=== PATIENT | female | born 1975 | race Caucasian/White ===

== ENCOUNTER 2020-06-06 16:27 | Emergency (ER) | payer MEDICAID, SELFPAY ==
[2020-06-06 16:39] VITALS: BP 172/100; PULSE 91; RESP 17; TEMP 37.7; O2SAT 99; BMI 29.5
[2020-06-06 17:13] VITALS: BP 117/76; PULSE 82; RESP 16; TEMP 37.2; O2SAT 98
--- NOTE | 2020-06-06 17:16 | ED.SKABFB ---
HPI - Skin/Abscess/Foreign Bdy General Chief complaint: Skin/Abscess/Foreign Body Stated complaint: rash Time Seen by Provider: 06/06/20 16:58 Source: patient Mode of arrival: ambulatory Limitations: no limitations History of Present Illness HPI narrative: 44-year-old female who is HIV positive who presents emergency department for evaluation of headache x1 week and left-sided facial/head/neck rash that started yesterday. The patient was seen at the [facility] and referred to emergency department for evaluation for possible shingles. The patient states that she has had a left-sided occipital headache for 1 week. She describes the pain as a constant, sharp, burning, throbbing pain which is greater than 10/10. She states that yesterday she noticed a rash on the left side of her face and neck. The rash does involve her nose. She denies any change in her vision or eye pain. She states that the rash is a burning sensation which is severe and is 10/10. She had associated nausea but no vomiting. She states that she did have a fever at home over the past 2 days as well. The patient does use injection heroin and cocaine and uses daily. She states that she injected heroin into her right biceps area and now has a rash in this area which she knows is an early abscess. She states that she gets these frequently and she treats them with warm compresses and does not want antibiotics for her abscess. She denied numbness, weakness, chest pain, shortness of breath, cough, loss of taste signs or smell. MD complaint: rash Onset (ago): day(s) (2) Location: head (Left side), face (Left side) and neck (Left side) Severity: severe Severity scale (1-10): 10 Quality: burning, sharp and constant Pain Consistency: constant Relieving factors: none Exacerbating factors: none Context: none Associated symptoms: fever, nausea and other (Headache) Treatments prior to arrival: none Related Data Previous Rx's Medication Instructions Recorded acetaminophen [Tylenol Extra 1,000 mg PO Q4-6H PRN #60 tab 06/06/20 Strength] prednisone 60 mg PO DAILY #21 tab 06/06/20 valacyclovir [Valtrex] 1,000 mg PO TID 10 Days #30 tab 06/06/20 Allergies Allergy/AdvReac Type Severity Reaction Status Date / Time No Known Allergies Allergy Verified 06/06/20 17:10 Review of Systems Review of Systems: Yes all other systems are reviewed and are negative Constitutional: Constitutional: Reports as per HPI Eyes: Eyes: Reports as per HPI ENT: Reports as per HPI Cardiovascular: Cardiovascular: Reports as per HPI Respiratory: Respiratory: Reports as per HPI Gastrointestinal: Gastrointestinal: Reports as per HPI Genitourinary: Genitourinary: Reports as per HPI Musculoskeletal: Musculoskeletal: Reports as per HPI Integumentary/Breasts: Skin/Breast: Reports as per HPI Neurologic: Reports as per HPI and Reports Abnormal speech present Psychiatric: Psychiatric: Reports as per HPI Allergic/Immunologic: Allergic/Immunologic: Reports as per HPI [facility] Past Medical History [facility] Narrative: The patient does smoke cigarettes. She denies alcohol use. She does inject heroin with cocaine daily. Medical History Hep C w/o coma, chronic HIV (human immunodeficiency virus infection) Social History Social History Advance Directives: No Advance Directives Information Provided: No Physical Exam Vital Signs: Vital Signs: Last Vital Signs Temp 99.0 F 06/06/20 17:13 Pulse 82 06/06/20 17:13 Resp 16 06/06/20 17:13 BP 117/76 06/06/20 17:13 Pulse Ox 98 06/06/20 17:13 Body Mass Index 29.5 Const: General: cooperative, alert, awake and acute distress (Patient is crying, she appears to be in distress secondary to pain) moderate Orientation/consciousness: oriented to person and oriented to place Limitations: no limitations HENMT: Head: Yes normocephalic, Yes atraumatic and Yes other (Fascicular rash on a red base, left side only face, occiput, neck) Ears: external ears normal General nose exam: Normal external nose present Face and sinus: Yes sinuses nontender Mouth: Normal oral and palatal mucosa present Teeth and gingiva: edentulous Eyes: General: appearance normal, both eyes and all related structures Periorbital: periorbital findings normal Eyelids: Yes eyelids normal Conjunctivae: conjunctivae normal Sclerae: sclerae normal Corneas: corneas normal Pupils: Equal, round and reactive pupils present Direct Ophthalmoscopy: normal light reflex Neck: Neck: Yes normal visual inspection and Yes supple Lymphatic: no lymphadenopathy noted Chest: Chest palpation & inspection: normal inspection of the chest and normal palpation of entire chest wall Resp: Effort & Inspection: normal respiratory effort, abnormal respiratory pattern, no audible wheezes and no respiratory distress Auscultation: clear to auscultation bilaterally, no crackles, no rales, no rhonchi and no wheezes Cardio: Rate: regular rate Rhythm: regular rhythm Heart sounds: S1 normal heart sound present, S2 normal heart sound present and no murmurs GI: Inspection: No distended Palpation (GI): Soft to palpation, nontender, no guarding and No hepatosplenomegaly present Auscultation: normal bowel sounds : General: Yes no CVA tenderness Back/Spine/Pelvis: Back: no CVA tenderness Skin: General skin exam: other (Fascicular rash to left face, occipital area, and neck) Neuro: General: oriented to person and oriented to place Cranial nerves: Yes CN's II-XII intact bilaterally and Yes Equal, round and reactive pupils present Cognition (Neuro): normal cognition Speech: Abnormal speech present Motor exam (neuro): 5/5 motor strength present throughout Extrem: General: Yes full ROM, Yes no pedal edema, Yes no calf tenderness and Yes other (2 x 2 circular, indurated, erythematous area to the right biceps, slightly ) Psych: Appearance: grossly normal Mental Status: mental status grossly normal Speech and movement: Clear speech present Affect: normal affect Thought process: Normal thought process present Course Course Course Narrative: 44-year-old female, HIV positive who presents to emergency department for evaluation of a headache x1 week, the rash on the left side of her face, head and neck x2 days and an early abscess to her right biceps area who was referred to the emergency department for evaluation of possible shingles. The patient has no high findings at this time. She does not appear to be septic or toxic. Vital signs revealed an elevated blood pressure of 172/100 but I suspect that this is secondary to her pain, the she had a temperature of 99.9?. The patient will be treated with valacyclovir 1000 mg that started 3 times a day for 10 days and prednisone 60 mg once a day for 7 days. She was advised to take Tylenol extra-strength 500 mg every 4-6 hours as needed for pain. She was given printed instructions on shingles in these reviewed with her prior to her discharge. She was advised to follow up with doctor in 2-3 days for re-evaluation and return to the emergency department if symptoms get worse. She does have an early abscess to her right biceps area which I advised her to treat with warm compresses and return to the emergency department if her symptoms get worse. She does not want antibiotic treatment at this time she states that she gets these frequently and she can treat them with warm compresses only. She was given her 1st dose of prednisone and Tylenol here in the emergency department. Discharge Plan Discharge Clinical Impression: Herpes zoster dermatitis, Abscess Patient Disposition: Home, Self-Care Instructions: Shingles (ED), Abscess (ED) Additional Instructions: The rash and pain on the left side of your face is consistent with herpes zoster/shingles which is reactivation of chickenpox. Take valacyclovir 1000 mg 3 times a day for 10 days. This is an antiviral medication specifically against the herpes zoster virus and should help the shingles go away. Shingles can cause severe pain and inflammation, prednisone as an anti-inflammatory medication. Take prednisone 60 mg once a day for 7 days. Take your next dose tomorrow morning. While your taking prednisone do not take any nonsteroidal anti-inflammatory medications such as ibuprofen, Motrin, Advil, naproxen or Aleve. You can take extra-strength Tylenol 500 mg pills, 2 pills every 4-6 hours as needed for pain. Apply warm compresses to the early abscess on your right arm. If this is getting worse that may need to be drained in you need to return to the emergency department to get the abscess drained. If you developed any change in your vision or pain in your eye it is important that you return to the emergency department for re-evaluation for possible shingles of the eye. Follow-up with your doctor in 2-3 days. Please return to the emergency department if your symptoms get worse or if you develop any new symptoms that are concerning to you. Prescriptions: New valacyclovir [Valtrex] 1 gram tablet 1,000 mg PO TID 10 Days Qty: 30 RF: 0 prednisone 20 mg tablet 60 mg PO DAILY Qty: 21 RF: 0 acetaminophen [Tylenol Extra Strength] 500 mg tablet 1,000 mg PO Q4-6H PRN (Reason: fever or pain) Qty: 60 RF: 0
[2020-06-06] MEDS: Acetaminophen 325 MG TABLET 975 MG PO (17:22)
[2020-06-06] MEDS: predniSONE 20 MG TABLET 60 MG PO (17:23)
--- NOTE | 2020-06-06 17:49 | PC.NURSE ---
PT COMES TO DESK ASKING FOR DISCHARGE PAPERS. D/C PAPERS NOT READY YET. PA STATES I DON'T WANT TO SIT HERE AND WAIT FOR DISCHARGE PAPERS. PT INSTRUCTED SHE WILL NEED HER PRESCRIPTIONS. PT AMB BACK TO ROOM.
== END 2020-06-06 17:57 | disposition home or self-care (01) ==
PROVIDERS: Emergency Provider Emergency Medicine Emergency Medical Services; PCP Internal Medicine
DX: B02.9 Zoster without complications (principal); L02.413 Cutaneous abscess of right upper limb; B20 Human immunodeficiency virus [HIV] disease
CPT/HCPCS: 99283; 99284

== ENCOUNTER 2021-04-18 22:25 | Emergency (ER) | payer MEDICAID, SELFPAY ==
--- NOTE | ~2021-04-18 | US_ITS ---
EXAMINATION: US VENOUS ULTRASOUND WITH DOPPLER LOWER EXTREMITY, RIGHT CLINICAL INFORMATION: Right lower extremity swelling and pain, rule out DVT COMPARISON: None TECHNIQUE: Ultrasound of the deep veins is performed from the hip to the calf with compression sonography and color and pulse Doppler assessment. Spectral analysis with color-flow imaging is performed. FINDINGS: There is normal venous compression and respiratory variation and augmented flow. The visualized common femoral vein, superficial femoral vein, profunda femoral vein, popliteal vein, and the trifurcation region shows no evidence of deep venous thrombosis. There is no significant popliteal fossa cyst. If the patient's symptoms persist, followup ultrasound in 5 days 7 days might be of value to exclude proximal propagation from a non-visualized calf vein. US/US venous duplex LE RT IMPRESSION: No DVT demonstrated in the right lower extremity.
[2021-04-18 22:58] VITALS: BP 154/82; PULSE 90; RESP 18; TEMP 36.1; O2SAT 94; BMI 43.1
--- NOTE | 2021-04-19 00:47 | ED.SKABFB ---
HPI - Skin/Abscess/Foreign Bdy General Chief complaint: Skin/Abscess/Foreign Body Stated complaint: Right foot swelling Time Seen by Provider: 04/19/21 00:35 Source: patient Mode of arrival: ambulatory History of Present Illness HPI narrative: 45-year-old female with a past medical history of asthma, hepatitis-C, HIV, IVDA presenting to the ED complaining of right foot erythema, swelling, pain x2 days. Reports swelling radiating up RLE. Reports chronic SOB x4 months secondary to weight gain from depression, unchanged since new symptoms. Denies history of blood clots, CP, numbness, tingling, fever, chills. Patient admits to injecting heroin and cocaine however denies injecting into right foot Related Data Previous Rx's Medication Instructions Recorded acetaminophen 500 mg tablet 1,000 mg PO Q4-6H PRN #60 tab 06/06/20 (Tylenol Extra Strength) prednisone 20 mg tablet 60 mg PO DAILY #21 tab 06/06/20 valacyclovir 1 gram tablet 1,000 mg PO TID 10 Days #30 tab 06/06/20 (Valtrex) cephalexin 500 mg capsule 500 mg PO QID 7 Days #28 cap 04/19/21 doxycycline hyclate 100 mg tablet 100 mg PO BID 7 Days #14 tab 04/19/21 Allergies Allergy/AdvReac Type Severity Reaction Status Date / Time No Known Allergies Allergy Verified 04/19/21 00:12 Review of Systems Review of Systems: Constitutional: No Fever, No Chills, No Fatigue, No Malaise ENT/Mouth:No Ear Pain, No Nasal Congestion, No Sinus Pain, No sore throat, No Rhinorrhea Eyes: No Eye Pain, No Discharge, No Vision Changes Cardiovascular: No Chest Pain, +chronic SOB, No Dyspnea on Exertion, No Orthopnea, + Edema, No Palpitations Respiratory: No Cough, No Dyspnea Gastrointestinal: No Nausea, No Vomiting, No Diarrhea, No Constipation, No Abdominal pain Genitourinary: No Dysuria, No Urinary Frequency, No Hematuria, No Urgency, No Flank Pain Musculoskeletal: No joint pain, No Myalgias, + Joint Swelling Skin: + Skin Lesions, No rash Neuro: No Weakness, No Numbness, No Paresthesias, No Headache Yes all other systems are reviewed and are negative PMFSH Past Medical History Attestation statement: The following information was validated with the patient. Medical History (Updated 04/19/21 @ 02:02 by CHANTALE Lemus) Asthma Genital herpes Hep C w/o coma, chronic HIV (human immunodeficiency virus infection) Substance abuse Social History Social History Alcohol intake: never Patient Tobacco Use Status: Current everyday Tobacco user Use of substances other than those prescribed or required for medical reasons: Yes Substance Use Type: Crack/Cocaine and Heroin Substance Use Frequency: Chronic Longstanding Last Used Substance: Hours (ago) Advance Directives: No Advance Directives Information Provided: No Patient : No Physical Exam Vital Signs: Vital Signs: Last Vital Signs Temp 97.0 F 04/18/21 22:58 Pulse 90 04/18/21 22:58 Resp 18 04/18/21 22:58 BP 154/82 H 04/18/21 22:58 Pulse Ox 94 04/18/21 22:58 Body Mass Index 43.1 Const: General: cooperative, healthy appearing and no acute distress Orientation/consciousness: patient oriented x3 Limitations: no limitations HENMT: Head: Yes normal to inspection and Yes atraumatic Ears: hearing grossly normal bilaterally General nose exam: Normal external nose present Face and sinus: Yes normal facial exam Eyes: General: appearance normal, both eyes and all related structures EOM: EOMs intact bilaterally Neck: Neck: Yes normal visual inspection and Yes no meningeal signs Resp: Effort & Inspection: normal respiratory effort and no respiratory distress Cardio: Rate: regular rate Peripheral pulses: dorsalis pedis present Skin: Wounds: no wounds Neuro: General: patient oriented x3 and no meningeal signs Gait exam (Neuro): Normal gait present Extrem: Other: 2+ RLE pitting edema. + right foot erythema and noted swelling. Peripheral pulses intact. No warmth. No streaking. No abscess. No fluctuance/induration Course Course Course Narrative: -0200--ED care transferred to Dr. Lazo pending labs, ultrasound and anticipated DC home MDM - Skin/Abscess/Foreign Bdy MDM Narrative Medical decision making narrative: 45-year-old female with a past medical history of asthma, hepatitis-C, HIV, IVDA presenting to the ED complaining of right foot erythema, swelling, pain x2 days. On exam vital signs stable, NAD/nontoxic-appearing, physical exam as above consistent with right foot cellulitis. Rule out DVT. No evidence of abscess. Low concern for septic joint/arthritis Plan: Labs, lactate, blood cultures, venous duplex ultrasound Medical Records Attestation: I reviewed the patient's medical records. Lab Data Attestation: I reviewed the patient's lab results. Discharge Plan Discharge Clinical Impression: Cellulitis Qualifiers: Site of cellulitis: extremity Site of cellulitis of extremity: lower extremity Laterality: right Qualified Code(s): L03.115 - Cellulitis of right lower limb Instructions: Cellulitis (ED) Additional Instructions: You have an infection in her foot. Keflex and doxycycline are antibiotics, take as prescribed If infection is spreading, he developed fever, chills, drainage from area, shortness of breath please return to the ED Please be re-evaluated in 2-3 days Do not inject in this area Prescriptions: New cephalexin 500 mg capsule 500 mg PO QID 7 Days Qty: 28 RF: 0 doxycycline hyclate 100 mg tablet 100 mg PO BID 7 Days Qty: 14 RF: 0 No Action valacyclovir [Valtrex] 1 gram tablet 1,000 mg PO TID 10 Days Qty: 30 RF: 0 prednisone 20 mg tablet 60 mg PO DAILY Qty: 21 RF: 0 acetaminophen [Tylenol Extra Strength] 500 mg tablet 1,000 mg PO Q4-6H PRN (Reason: fever or pain) Qty: 60 RF: 0 Referrals: Alexandrea Sweet MD [Primary Care Provider] - 2 days
[2021-04-19 02:08] LABS: Basophils Percent Auto 0.6 % (0-2); Eosinophils Absolute Auto 0.2 X10*3/uL (0.0-0.4); Eosinophils Percent Auto 2.8 % (0-4); Hemoglobin 15.4 g/dl (12.0-16.0); Imm Gran Abs Auto 0.04 X10*3/uL (0.00-0.03); Imm Gran Pct Auto 0.6 % (0.0-0.4); Lymphocytes Absolute Auto 1.5 X10*3/uL (1.2-4.9); Lymphocytes Percent Auto 21.1 % (20-40); MANUAL DIFF FLAG NO; Mean Corpuscular HGB Conc 34.2 g/dl (31.0-35.0); Mean Corpuscular Hemoglobin 30.9 pg (27.0-33.0); Mean Corpuscular Volume 90.2 fL (80-98); Mean Platelet Volume 10.1 fL (9.4-12.3); Monocytes Absolute Auto 0.5 X10*3/uL (0.1-1.2); Monocytes Percent Auto 6.5 % (2-11); Neutrophils Absolute Auto 4.8 X10*3/uL (2.0-8.3); Neutrophils Percent Auto 68.4 % (45-73); Platelet Count 194 X10*3/uL (160-400); Red Blood Count 4.99 X10*6/uL (4.20-5.50); Red Cell Distribution Width 13.2 % (11.0-16.0); White Blood Count 7.1 X10*3/uL (4.8-10.8)
[2021-04-19 02:19] LABS: Lactic Acid 1.2 mmol/L (0.5-2.0)
[2021-04-19 02:28] LABS: Alanine Aminotransferase 46 U/L (0-31); Albumin Level 3.9 g/dL (3.5-5.0); Alkaline Phosphatase 58 U/L (39-117); Anion Gap 11 (12-20); Aspartate Amino Transferase 40 U/L (5-31); Bilirubin Direct 0.2 mg/dL (0.0-0.5); Bilirubin Total 0.2 mg/dL (0.0-1.0); Blood Urea Nitrogen 8 mg/dL (9-16); Calcium 9.2 mg/dL (8.4-10.2); Carbon Dioxide 28 mmol/L (22-29); Chloride 102 mmol/L (96-108); Creatinine Clr Calc Pharmacy 123.8; Estimated Glomerular Filt Rate > 60; Glucose Random 108 mg/dL (60-115); Potassium 4.3 mmol/L (3.3-5.1); Sodium 137 mmol/L (135-145)
[2021-04-19] MEDS: cephALEXin 500 MG CAPSULE PO (02:45)
[2021-04-19 03:02] VITALS: BP 142/64; PULSE 74; RESP 18; TEMP 37; O2SAT 97
== END 2021-04-19 03:03 | disposition home or self-care (01) ==
PROVIDERS: Physician Assistant; Emergency Provider Internal Medicine; PCP Internal Medicine
DX: L03.115 Cellulitis of right lower limb (principal); R60.0 Localized edema; F11.10 Opioid abuse, uncomplicated; F14.10 Cocaine abuse, uncomplicated; F17.200 Nicotine dependence, unspecified, uncomplicated; Z71.6 Tobacco abuse counseling; Z79.899 Other long term (current) drug therapy
CPT/HCPCS: 36415; 80048; 80076; 83605; 85025; 87040; 93971; 99284

== ENCOUNTER 2021-10-30 01:13 | Observation (INO) | payer MEDICAID, SELFPAY ==
[2021-10-30] VITALS (9 sets, daily range): BP systolic 112–143; BP diastolic 47–97; PULSE 71–92; RESP 13–24; TEMP 36.7–37.2; O2SAT 90–97; BMI 32.5
--- NOTE | ~2021-10-30 | XR_ITS ---
EXAMINATION: XR CHEST CLINICAL INFORMATION: Shortness of breath COMPARISON: 12/20/2018 TECHNIQUE: Frontal view of the chest was obtained. FINDINGS: Lung volumes are symmetric. No acute consolidation is seen. Mild focal left basilar opacity appears similar to 12/20/2018, suggesting scarring. No evidence of pneumothorax, pleural effusion, or pulmonary edema. The cardiomediastinal contour is unremarkable. No acute osseous findings are seen. XR/XR chest 1V IMPRESSION: No acute cardiopulmonary findings.
--- NOTE | 2021-10-30 01:36 | ED_ITS ---
HPI - Asthma General Chief Complaint: Asthma Stated Complaint: sob Time Seen by Provider: 10/30/21 01:28 Source: patient Mode of arrival: EMS History of Present Illness HPI Narrative: 46-year-old female with history of HIV, hep C, asthma, IVDA who presents with 1 week of worsening shortness of breath without associated fever, chills, GI or symptoms. Patient last used approximately 4 days ago. Patient states that she is currently undetectable, taking her medications as prescribed. She reports that she ran out of her inhalers. Related Data Previous Rx's Medication Instructions Recorded acetaminophen 500 mg tablet 1,000 mg PO Q4-6H PRN #60 tab 06/06/20 (Tylenol Extra Strength) prednisone 20 mg tablet 60 mg PO DAILY #21 tab 06/06/20 valacyclovir 1 gram tablet 1,000 mg PO TID 10 Days #30 tab 06/06/20 (Valtrex) cephalexin 500 mg capsule 500 mg PO QID 7 Days #28 cap 04/19/21 doxycycline hyclate 100 mg tablet 100 mg PO BID 7 Days #14 tab 04/19/21 prednisone 50 mg tablet 50 mg PO DAILY 4 Days #4 tab 10/30/21 Allergies Allergy/AdvReac Type Severity Reaction Status Date / Time No Known Allergies Allergy Verified 04/19/21 00:12 Review of Systems Review of Systems: Pertinent positives and negatives as stated in HPI 10 point review of systems otherwise negative. PMFSH Past Medical History Source: nursing notes reviewed Medical History Asthma Genital herpes Hep C w/o coma, chronic HIV (human immunodeficiency virus infection) Substance abuse Social History Social History Alcohol intake: never Patient Tobacco Use Status: Current everyday Tobacco user Use of substances other than those prescribed or required for medical reasons: Yes Substance Use Type: Crack/Cocaine and Heroin Advance Directives: No Physical Exam Vital Signs: Vital Signs: Last Vital Signs Temp 98.4 F 10/30/21 05:02 Pulse 74 10/30/21 05:02 Resp 13 10/30/21 05:02 BP 119/68 10/30/21 05:02 Pulse Ox 96 10/30/21 05:02 BMI result Body Mass Index 32.5 VITAL SIGNS: Reviewed. GENERAL: Well developed, well nourished, in no acute distress. HEAD: Normocephalic/atraumatic EYES: PERRLA, EOMI EARS: Ext canals without abnormality OROPHARYNX: no oral lesions noted, posterior pharynx clear LUNGS: Good inspiratory effort with combination of wheeze and crackles bilaterally. SpO2<91> room air CARDIOVASCULAR: Regular rate and rhythm without noted murmurs, no JVD or lower extremity edema. ABDOMEN: Soft, non-tender, non-distended with bowel sounds. MUSCULOSKELETAL: No tenderness, deformities, or effusions noted on gross inspection. EXTREMITIES: No cyanosis, clubbing or edema, but obvious evidence of needle tracking with dry scabbing over the left forearm without evidence of infection SKIN: Inspection of the skin reveals no rashes NEUROLOGIC: Alert and oriented x 4. Strength and sensation to light touch were grossly intact x 4. Course Course Course Narrative: 46-year-old female with history and clinical presentation consistent with acute asthma exacerbation. Patient received steroids, IVs M sulfate, 2 hour long albuterol treatment. Review of all investigations otherwise negative for acute findings other than acute asthma exacerbation and despite patient receiving extensive medication intervention she remains hypoxic on room air and ambulation with oxygenation testing demonstrates that patient is oxygenating 89-90%. This case was reviewed with the inpatient hospitalist who accepts admission. MDM - Asthma Lab Data Result diagrams: 10/30/21 01:59 10/30/21 02:01 Labs: Lab Results 10/30/21 10/30/21 10/30/21 Range/Units 01:56 01:56 01:58 WBC (4.8-10.8) X10*3/uL RBC (4.20-5.50) X10*6/uL Hgb (12.0-16.0) g/dl Hct (37.0-47.0) % MCV (80.0-98.0) fL MCH (27.0-33.0) pg MCHC (31.0-35.0) g/dl RDW (11.0-16.0) % Plt Count (160-400) X10*3/uL MPV (9.4-12.3) fL Immature Gran % (Auto) (0.0-0.4) % Neut % (Auto) (45-73) % Lymph % (Auto) (20-40) % [place] % (Auto) (2-11) % Eos % (Auto) (0-4) % Baso % (Auto) (0-2) % Lymph # (Auto) (1.2-4.9) X10*3/uL [place] # (Auto) (0.1-1.2) X10*3/uL Eos # (Auto) (0.0-0.4) X10*3/uL Baso # (Auto) (0.0-0.2) X10*3/uL Abs Immat Gran (auto) (0.00-0.03) X10*3/uL Absolute Neuts (auto) (2.0-8.3) x10*3/uL Absolute Nucleated RBC (0.0-0.012) X10*3/uL Nucleated RBC % (auto) (0.0-0.2) /100WBC VBG pH (7.32-7.43) VBG pCO2 mmHg VBG pO2 mmHg VBG HCO3 (22-26) mmol/L VBG O2 Saturation % VBG Base Excess mmol/L Sodium (135-145) mmol/L Potassium (3.3-5.1) mmol/L Chloride (96-108) mmol/L Carbon Dioxide (22-29) mmol/L Anion Gap (12-20) BUN (9-16) mg/dL Creatinine (0.5-1.4) mg/dL Estim Creat Clear Calc Estimated GFR Random Glucose (60-115) mg/dL Lactic Acid 1.4 (0.5-2.0) mmol/L Calcium (8.4-10.2) mg/dL Total Bilirubin (0.0-1.0) mg/dL AST (5-31) U/L ALT (0-31) U/L Alkaline Phosphatase (39-117) U/L Total Protein (6.5-8.0) g/dL Albumin (3.5-5.0) g/dL COVID-19 (GINO) Negative (Negative) COVID-19 Clin Com See Note Influenza Type A (BALDO) Negative (Negative) Influenza Type B (BALDO) Negative (Negative) Influenza A & B Note See Note 10/30/21 10/30/21 10/30/21 Range/Units 01:59 02:01 02:02 WBC 4.2 L (4.8-10.8) X10*3/uL RBC 5.10 (4.20-5.50) X10*6/uL Hgb 15.0 (12.0-16.0) g/dl Hct 45.2 (37.0-47.0) % MCV 88.6 (80.0-98.0) fL MCH 29.4 (27.0-33.0) pg MCHC 33.2 (31.0-35.0) g/dl RDW 13.5 (11.0-16.0) % Plt Count 158 L (160-400) X10*3/uL MPV 10.1 (9.4-12.3) fL Immature Gran % (Auto) 0.5 H (0.0-0.4) % Neut % (Auto) 62.4 (45-73) % Lymph % (Auto) 25.5 (20-40) % [place] % (Auto) 6.9 (2-11) % Eos % (Auto) 4.5 H (0-4) % Baso % (Auto) 0.2 (0-2) % Lymph # (Auto) 1.1 L (1.2-4.9) X10*3/uL [place] # (Auto) 0.3 (0.1-1.2) X10*3/uL Eos # (Auto) 0.2 (0.0-0.4) X10*3/uL Baso # (Auto) 0.0 (0.0-0.2) X10*3/uL Abs Immat Gran (auto) 0.02 (0.00-0.03) X10*3/uL Absolute Neuts (auto) 2.6 (2.0-8.3) x10*3/uL Absolute Nucleated RBC 0.000 (0.0-0.012) X10*3/uL Nucleated RBC % (auto) 0.0 (0.0-0.2) /100WBC VBG pH 7.38 (7.32-7.43) VBG pCO2 31 mmHg VBG pO2 52 mmHg VBG HCO3 19 L (22-26) mmol/L VBG O2 Saturation 81.0 % VBG Base Excess -4.6 mmol/L Sodium 136 (135-145) mmol/L Potassium 3.4 D (3.3-5.1) mmol/L Chloride 100 (96-108) mmol/L Carbon Dioxide 25 (22-29) mmol/L Anion Gap 14 (12-20) BUN 11 (9-16) mg/dL Creatinine 0.83 (0.5-1.4) mg/dL Estim Creat Clear Calc 105.3 Estimated GFR > 60 Random Glucose 127 H (60-115) mg/dL Lactic Acid (0.5-2.0) mmol/L Calcium 9.1 (8.4-10.2) mg/dL Total Bilirubin 0.5 (0.0-1.0) mg/dL AST 57 H (5-31) U/L ALT 54 H (0-31) U/L Alkaline Phosphatase 68 (39-117) U/L Total Protein 7.8 (6.5-8.0) g/dL Albumin 3.9 (3.5-5.0) g/dL COVID-19 (GINO) (Negative) COVID-19 Clin Com Influenza Type A (BALDO) (Negative) Influenza Type B (BALDO) (Negative) Influenza A & B Note Discharge Plan Discharge Clinical Impression: Asthma with acute exacerbation, Hepatitis C, HIV (human immunodeficiency virus infection), Substance use disorder Patient Disposition: Admitted As Inpatient Instructions: Asthma (ED) Prescriptions: New prednisone 50 mg tablet 50 mg PO DAILY 4 Days Qty: 4 0RF No Action valacyclovir [Valtrex] 1 gram tablet 1,000 mg PO TID 10 Days Qty: 30 0RF prednisone 20 mg tablet 60 mg PO DAILY Qty: 21 0RF acetaminophen [Tylenol Extra Strength] 500 mg tablet 1,000 mg PO Q4-6H PRN (Reason: fever or pain) Qty: 60 0RF cephalexin 500 mg capsule 500 mg PO QID 7 Days Qty: 28 0RF doxycycline hyclate 100 mg tablet 100 mg PO BID 7 Days Qty: 14 0RF Referrals: [facility] [Primary Care Provider] -
[2021-10-30] MEDS: Albuterol Sulfate (0.083%) 2.5 MG/3 ML VIAL.NEB 10 MG INHALE ×2 (01:37→03:37)
[2021-10-30] MEDS: methylPREDNISolone Sod Succ 125 MG/2 ML VIAL IVPUSH (02:02)
[2021-10-30 02:05] LABS: MANUAL DIFF FLAG NO
[2021-10-30 02:06] LABS: Basophils Percent Auto 0.2 % (0-2); Eosinophils Absolute Auto 0.2 X10*3/uL (0.0-0.4); Eosinophils Percent Auto 4.5 % (0-4); Hematocrit 45.2 % (37.0-47.0); Imm Gran Abs Auto 0.02 X10*3/uL (0.00-0.03); Imm Gran Pct Auto 0.5 % (0.0-0.4); Lymphocytes Absolute Auto 1.1 X10*3/uL (1.2-4.9); Lymphocytes Percent Auto 25.5 % (20-40); Mean Corpuscular HGB Conc 33.2 g/dl (31.0-35.0); Mean Corpuscular Hemoglobin 29.4 pg (27.0-33.0); Mean Corpuscular Volume 88.6 fL (80.0-98.0); Mean Platelet Volume 10.1 fL (9.4-12.3); Monocytes Absolute Auto 0.3 X10*3/uL (0.1-1.2); Monocytes Percent Auto 6.9 % (2-11); Neutrophils Absolute Auto 2.6 x10*3/uL (2.0-8.3); Neutrophils Percent Auto 62.4 % (45-73); Platelet Count 158 X10*3/uL (160-400); Red Cell Distribution Width 13.5 % (11.0-16.0); White Blood Count 4.2 X10*3/uL (4.8-10.8)
[2021-10-30 02:09] LABS: VBG Base Excess -4.6 mmol/L; VBG HCO3 19 mmol/L (22-26); VBG pCO2 31 mmHg; VBG pH 7.38 (7.32-7.43); VBG pO2 52 mmHg
[2021-10-30 02:10] LABS: Venous Blood Gas Refer to POC result
[2021-10-30 02:22] LABS: IDNOW Serial# 16C4AD1C; Influenza A Negative (Negative); Influenza B2 Negative (Negative)
[2021-10-30 02:22] LABS: COVID-19 Test Negative (Negative)
[2021-10-30 03:00] LABS: Lactic Acid 1.4 mmol/L (0.5-2.0)
[2021-10-30 03:02] LABS: Alanine Aminotransferase 54 U/L (0-31); Albumin Level 3.9 g/dL (3.5-5.0); Alkaline Phosphatase 68 U/L (39-117); Anion Gap 14 (12-20); Aspartate Amino Transferase 57 U/L (5-31); Bilirubin Total 0.5 mg/dL (0.0-1.0); Blood Urea Nitrogen 11 mg/dL (9-16); Calcium 9.1 mg/dL (8.4-10.2); Carbon Dioxide 25 mmol/L (22-29); Chloride 100 mmol/L (96-108); Creatinine Clr Calc Pharmacy 105.3; Estimated Glomerular Filt Rate > 60; Glucose Random 127 mg/dL (60-115); Potassium 3.4 mmol/L (3.3-5.1); Sodium 136 mmol/L (135-145); Total Protein 7.8 g/dL (6.5-8.0)
[2021-10-30] MEDS: Magnesium Sulfate/H2O 2 GM/50 ML PIGGYBACK IV (04:19)
--- NOTE | 2021-10-30 04:25 | PC.NURSE ---
pt a&o, able to answer questions in complete sentence, no retractions. Medicated per Mar.
--- NOTE | 2021-10-30 05:28 | PC.NURSE ---
pt given 2 respiratory treatments. pt on bedside tele monitor.
[2021-10-30] MEDS: Albuterol Sulfate 90 MCG 8 GM INHALER 2 PUFF INHALE (05:55)
--- NOTE | 2021-10-30 07:25 | PC.NURSE ---
pt a&ox3, vss, pt denies sob at this time, speaking in fully sentences, no increased respiratory effort noted, O2 @ 94% on room air. pt requesting food. pending admission.
--- NOTE | 2021-10-30 07:31 | PC.NURSE ---
breakfast tray requested from kitchen.
--- NOTE | 2021-10-30 08:53 | P.HPHOSP_ITS ---
History of Present Illness Date of Service: 10/30/21 Chief Complaint: shortness of breath This is a 46 yo F with a PMH of asthma -- mild and intermittent, HIV (on HAART), Hep C (not treated), prior IVDU with last use about 3 months ago, chronic opiate dependence on methadone who presents to the ED with complaints of progressive shortness of breath of 1-2 weeks duration. The patient endorses a cough productive of yellow sputum and wheezing. She denies any pleurtic chest pain, anginal symptoms, fevers/chills or any sick contacts. She reports she is unvaccinated to COVID 19. She reports using her baseline inhalers including rescue inhlaer without much help. She reports she ran out of her inhalers about 1 week ago. She denies active IVDU. In the ED, she was noted to be in respiratory distress with diffuse wheezing. COVID 19 is negative as is CXR for pneumonia. She had low/normal oxygen saturation in the 89-90% range on RA. This was depsite 2 hour long nebs, IV mag, IV solu-medrol. She will now be now admitted under obs for furhter treamtent and monitoring. COVID 19 vaccination status: not immunized Review of Systems Review of Systems: negative except HPI [facility] Medical History Asthma Genital herpes Hep C w/o coma, chronic HIV (human immunodeficiency virus infection) Substance abuse Social History Alcohol intake: never Patient Tobacco Use Status: Current everyday Tobacco user Use of substances other than those prescribed or required for medical reasons: Yes Substance Use Type: Crack/Cocaine and Heroin Advance Directives: No Meds Allergies Allergy/AdvReac Type Severity Reaction Status Date / Time No Known Allergies Allergy Verified 04/19/21 00:12 Active Medications: Current Medications Pharmacy Consult (Consult Rx Perform Med Rec) 1 each MISCELLANE ONCE PRN PRN Reason: Consult order Home Medications Medication Instructions Recorded Confirmed Last Taken Type albuterol sulfate 90 mcg/actuation 2 puff PO Q4-6H PRN 10/30/21 Unknown History aerosol inhaler (ProAir HFA) citalopram 20 mg tablet 1 tab PO DAILY 10/30/21 Unknown History dolutegravir 50 mg tablet (Tivicay) 1 tab PO DAILY 10/30/21 Unknown History emtricitabine 200 mg-tenofovir 1 tab PO DAILY 10/30/21 Unknown History alafenamide fumarate 25 mg tablet (Descovy) Physical Exam Vital Signs and Narrative: Vital Signs: Last Vital Signs Temp 98.7 F 10/30/21 07:17 Pulse 84 10/30/21 07:17 Resp 20 10/30/21 07:17 BP 123/70 10/30/21 07:17 Pulse Ox 92 10/30/21 07:17 BMI result Body Mass Index 32.5 Const: Other: Constitutional - Awake and Alert, No apparent distress Eyes - PERRLA, EOMI Cardiovascular - S1S2, RRR, No edema Respiratory - diminished air entry globally; no tachypnea; mild exp. wheezing Gastrointestinal - NT / ND; +BS; No rebound or guarding - No CVA tenderness Extremities - no calf tenderness bilaterally, no swelling Musculoskeletal - Normal inspection, normal ROM Skin - healing wound on L fore-arm (pt reports from IVDU about 3 months ago) Neurological - Alert & oriented x3, No focal deficit Psychological - Appropriate affect Results Labs CBC and Chem 7: 10/30/21 01:59 10/30/21 02:01 Labs: Laboratory Results - last 24 hr 10/30/21 10/30/21 10/30/21 01:56 01:56 01:58 MCV MCH MCHC RDW Plt Count MPV Immature Gran % (Auto) Neut % (Auto) Lymph % (Auto) [place] % (Auto) Eos % (Auto) Baso % (Auto) Lymph # (Auto) [place] # (Auto) Eos # (Auto) Baso # (Auto) Abs Immat Gran (auto) Absolute Neuts (auto) Absolute Nucleated RBC Nucleated RBC % (auto) VBG pH VBG pCO2 VBG pO2 VBG HCO3 VBG O2 Saturation VBG Base Excess Anion Gap Estim Creat Clear Calc Estimated GFR Random Glucose Lactic Acid 1.4 Calcium Total Bilirubin AST ALT Alkaline Phosphatase Total Protein Albumin COVID-19 (GINO) Negative COVID-19 Clin Com See Note Influenza Type A (BALDO) Negative Influenza Type B (BALDO) Negative Influenza A & B Note See Note 10/30/21 10/30/21 10/30/21 01:59 02:01 02:02 MCV 88.6 MCH 29.4 MCHC 33.2 RDW 13.5 Plt Count 158 L MPV 10.1 Immature Gran % (Auto) 0.5 H Neut % (Auto) 62.4 Lymph % (Auto) 25.5 [place] % (Auto) 6.9 Eos % (Auto) 4.5 H Baso % (Auto) 0.2 Lymph # (Auto) 1.1 L [place] # (Auto) 0.3 Eos # (Auto) 0.2 Baso # (Auto) 0.0 Abs Immat Gran (auto) 0.02 Absolute Neuts (auto) 2.6 Absolute Nucleated RBC 0.000 Nucleated RBC % (auto) 0.0 VBG pH 7.38 VBG pCO2 31 VBG pO2 52 VBG HCO3 19 L VBG O2 Saturation 81.0 VBG Base Excess -4.6 Anion Gap 14 Estim Creat Clear Calc 105.3 Estimated GFR > 60 Random Glucose 127 H Lactic Acid Calcium 9.1 Total Bilirubin 0.5 AST 57 H ALT 54 H Alkaline Phosphatase 68 Total Protein 7.8 Albumin 3.9 COVID-19 (GINO) COVID-19 Clin Com Influenza Type A (BALDO) Influenza Type B (BALDO) Influenza A & B Note Imaging Radiologist's Impressions: Impressions Chest X-Ray 10/30/21 03:20 IMPRESSION: No acute cardiopulmonary findings. Assessment and Plan (1) Asthma with acute exacerbation: Status: Acute (2) HIV (human immunodeficiency virus infection): Status: Acute Plan This is a 46 yo F with a PMH of asthma -- mild and intermittent, HIV (on HAART), Hep C (not treated), prior IVDU with last use about 3 months ago, chronic opiate dependence on methadone who presents to the ED with complaints of progressive shortness of breath of 1-2 weeks duration. She has improved minimally after multiple rounds of treatment in the ED and now will be admitted under observation for further treatment and monitoring. 1. Acute asthma exacerbation borderline low normal SPO2 (no respiratory failure) post treatment will continue IV solu-medrol + scheduled/PRN bronchodilators hold off antibiotics for the time being 2. HIV continue HAART 3. Chronic Hep C recommended outpatient f/u with the patient 4. Chronic opiate dependence methadone once verified 5. Mood continue baseline meds Full Code DVT pptx, Low risk -- mechanical device + early ambulation Quality Stroke Does the patient have a stroke diagnosis?: No VTE Prior VTE?: No VTE Risk Level:: Medical - low VTE Device Contraindication: N/A - Device Ordered VTE Drug Contraindication: Treatment Not Indicated
--- NOTE | 2021-10-30 09:18 | PHA.MEDREC ---
Pharmacy Consult ? Medication Reconciliation Pharmacy has completed the medication reconciliation. Pt states that she gets 115mg of methadone from [facility] last dose being 10/29/21. Germaine Marina, SoniaD
--- NOTE | 2021-10-30 09:42 | PC.NURSE ---
security called RN and said patient left ED and was outside. RN asked for patient to be brought back to room. patient stated she went outside to take her own methadone her boyfriend brought for her. This RN verified patients dose already and had faxed to pharmacy. informed patient not to take her own med again and that she would be dispensed dose form out pharmacy tomorrow. patient verbally understood. pharmacy made aware of above as well.
[2021-10-30] MEDS: methylPREDNISolone Sod Succ 40 MG/ML VIAL IVPUSH ×2 (09:53→20:58)
[2021-10-30] MEDS: Albuterol/Iprat 2.5/0.5MG 3 ML AMPUL.NEB INHALE ×3 (11:11→19:15)
--- NOTE | 2021-10-30 16:18 | PC.NURSE ---
tried to call report into overflow, RN with pt, will call back.
--- NOTE | 2021-10-30 16:21 | PC.NURSE ---
pt requesting sanitary pads, pt started menstruating. pt requesting naima rick, no other requests at this time. pt denies pain, sob.
--- NOTE | 2021-10-30 16:50 | MHC.CM.PN ---
Met with patient in ED OVER. Pt lying in bed with boyfriend. A&Ox4. Obs status. SUN reviewed and signed. No HCP, declines. Lives alone. No DME or Services. Not immunized against Covid 19. On MAT- Methadone 115 mg/daily. D/C plan is home without services. Pt states she will walk home. CM to follow for d/c needs.
[2021-10-31 06:49] VITALS: BP 153/76; PULSE 60; TEMP 36.9; O2SAT 95
[2021-10-31] MEDS: Albuterol/Iprat 2.5/0.5MG 3 ML AMPUL.NEB INHALE (08:00)
[2021-10-31 08:02] VITALS: PULSE 74; RESP 18; O2SAT 98
[2021-10-31] MEDS: methylPREDNISolone Sod Succ 40 MG/ML VIAL IVPUSH (08:34)
--- NOTE | 2021-10-31 09:12 | PM.DS ---
DS: Providers Provider Date of Service: 10/31/21 Date of admission: 10/30/21 08:51 Date of discharge: 10/31/21 Primary care physician: [facility] Attending physician on discharge: Micah Fischer Discharging clinician: Jemma Link DS: Diagnosis Discharge Diagnosis (1) Asthma with acute exacerbation: Status: Acute (2) HIV (human immunodeficiency virus infection): Status: Acute DS: Summary Hospital Course Hospital Course: From h&P on the day of admission This is a 46 yo F with a PMH of asthma -- mild and intermittent, HIV (on HAART), Hep C (not treated), prior IVDU with last use about 3 months ago, chronic opiate dependence on methadone who presents to the ED with complaints of progressive shortness of breath of 1-2 weeks duration. The patient endorses a cough productive of yellow sputum and wheezing. She denies any pleurtic chest pain, anginal symptoms, fevers/chills or any sick contacts. She reports she is unvaccinated to COVID 19. She reports using her baseline inhalers including rescue inhlaer without much help. She reports she ran out of her inhalers about 1 week ago. She denies active IVDU. In the ED, she was noted to be in respiratory distress with diffuse wheezing. COVID 19 is negative as is CXR for pneumonia. She had low/normal oxygen saturation in the 89-90% range on RA. This was depsite 2 hour long nebs, IV mag, IV solu-medrol. She will now be now admitted under obs for furhter treamtent and monitoring. COVID 19 vaccination status: not immunized Discharge diagnosis: Acute asthma exacerbation Hospital course: patient was admitted overnight for observation secondary to acute asthma exacerbation. she was treated with systemic steroids and breathing treatments. Her oxygenation has remained stable and she did not require supplemental oxygen during her hospitalization. She reports improvement in her breathing and is eager to return home. She will be discharged home to complete course of prednisone. The importance of smoking cessation was discussed with her and she will be discharged with nicotine patch. She should call to schedule follow up appointment with PCP and may benefit from formal PFTs in the future. Time Spent with Patient Time attestation: Total time spent providing and/or coordinating discharge services: Discharge coordination time: Greater than 30 minutes Quality: Safe Use of Opioids Does Pt have an Active Cancer Diagnosis on the Problem List?: No Quality: Stroke Does the patient have a stroke diagnosis?: No Physical Exam Vital Signs: Vital Signs: Last Vital Signs Temp 98.5 F 10/31/21 06:49 Pulse 74 10/31/21 08:02 Resp 18 10/31/21 08:02 BP 153/76 H 10/31/21 06:49 Pulse Ox 95 10/31/21 06:49 BMI result Body Mass Index 32.5 Const: General: cooperative, comfortable, no acute distress, alert and awake Nutritional Appearance: overweight Orientation/consciousness: patient oriented x3 Eyes: Pupils: Equal, round and reactive pupils present EOM: EOMs intact bilaterally Resp: Other: prolonged expiratory phase, no wheezing Effort & Inspection: normal respiratory effort and able to speak in complete sentences Cardio: Rate: regular rate Heart sounds: S1 normal heart sound present and S2 normal heart sound present GI: Palpation (GI): Soft to palpation and nontender Neuro: General: patient oriented x3 Cranial nerves: Yes Equal, round and reactive pupils present Extrem: General: Yes no pedal edema DS: Data Data Completed and Pending Labs on day of discharge: Preliminary micro results at discharge 10/30/21 02:01 Blood Culture - Preliminary Blood - Venous No growth after 24 hours. 10/30/21 01:56 Blood Culture - Preliminary Blood - Venous No growth after 24 hours. Discharge Plan Discharge Patient Disposition: Home, Self-Care Discharge Diagnosis: acute asthma exacerbation Referrals: Center,[facility] [Primary Care Provider] - Discharge Medications: New Flovent HFA 110 mcg/actuation HFA aerosol inhaler 1 puff inhalation BID Qty: 12 0RF prednisone 20 mg tablet 40 mg PO DAILY 5 Days Qty: 10 0RF nicotine [Nicoderm CQ] 14 mg/24 hr patch 24 hour 1 patch transdermal DAILY Qty: 28 0RF Continued valacyclovir [Valtrex] 1 gram tablet 1,000 mg PO TID 10 Days Qty: 30 0RF citalopram 20 mg tablet 1 tab PO DAILY 0RF albuterol sulfate [ProAir HFA] 90 mcg/actuation HFA aerosol inhaler 2 puff PO Q4H PRN (Reason: Shortness Of Breath) 0RF Tivicay 50 mg tablet 1 tab PO DAILY 0RF Descovy 200-25 mg tablet 1 tab PO DAILY 0RF methadone 10 mg/mL Concentrate 115 mg PO DAILY 0RF Rx Instructions: patient takes 115 mg PO daily. is given take home from [facility] [phone] acetaminophen [Tylenol Extra Strength] 500 mg tablet 1,000 mg PO Q4H PRN (Reason: fever or pain) 0RF Discharge Orders: Discharge Order (Routine); Ordered 10/31/21 Ordered By: Jemma Link Activity on Discharge: As tolerated Stand Alone Forms: Patient Portal Discharge page Care Plan Goals: see below Health Concerns: asthma exacerbation Plan of Treatment: take entire course of steroids as prescribed use flovent twice daily use albuterol as needed for sob/wheezing stop smoking, can use nicotine patch call to schedule follow up appointment with PCP Assessment: see discharge summary Patient Instructions: Asthma (ED) Discharge Date/Time: 10/31/21 10:52
--- NOTE | 2021-10-31 09:35 | MHC.CM.PN ---
Addendum entered by Nya Castro 10/31/21 09:37: PT WILL DC HOME TODAY WITH NO NEW SERVICES ORDERED PT TO ARRANGE TRANSPORTATION Original Note: CM CALLED [facility], PER BOAT TENDER, PTS PCP IS GLENN BUNDY
[2021-10-31] MEDS: Dolutegravir Sodium 50 MG TABLET PO (10:14)
[2021-10-31] MEDS: Emtricitabine/Tenofov Alafenam TABLET 1 TAB PO (10:15)
[2021-10-31] MEDS: Escitalopram Oxalate 10 MG TABLET PO (10:15)
[2021-10-31] MEDS: methADONE HCl 20 MG/2 ML ORAL.CONC 115 MG PO (10:15)
--- NOTE | 2021-10-31 10:31 | PC.NURSE ---
Pt medicated per AUG. VSS. pt offering no complaints this AM. New IV placed in the Right AC, pt stating that IV that was in place was hurting. Lungs sound crackly with bilateral expiratory wheezes. Pt verbalizes feeling better today though. Pt appears to be resting comfortably in the hospital bed.
[2021-10-31 10:33] VITALS: BP 146/72; PULSE 64; RESP 14; O2SAT 95
== END 2021-10-31 10:52 | disposition home or self-care (01) ==
LOC: HO.ED 06:25 → HO.EDOVER 09:04
PROVIDERS: Admitting Provider Family Medicine; Emergency Provider Student in an Organized Health Care Education/Training Program; PCP Internal Medicine; Visit Provider Physician Assistant Medical
DX: J45.901 Unspecified asthma with (acute) exacerbation (principal); B20 Human immunodeficiency virus [HIV] disease; B19.20 Unspecified viral hepatitis C without hepatic coma; E66.3 Overweight; F11.20 Opioid dependence, uncomplicated; F14.20 Cocaine dependence, uncomplicated; F17.210 Nicotine dependence, cigarettes, uncomplicated; Z68.32 Body mass index [BMI] 32.0-32.9, adult; Z20.822 Contact with and (suspected) exposure to COVID-19; Z79.52 Long term (current) use of systemic steroids; Z79.899 Other long term (current) drug therapy
CPT/HCPCS: 36415; 71045; 80053; 82803; 83605; 85025; 87040; 87502; 87635; 94645; 96365; 96366; 96375; 96376; 99218; 99285; J2920; J2930; J3475

== ENCOUNTER 2022-03-07 08:45 | Emergency (ER) | payer MEDICAID, SELFPAY ==
--- NOTE | ~2022-03-07 | XR_ITS ---
EXAMINATION: XR FOREARM LEFT XR HUMERUS LEFT CLINICAL INFORMATION: Foreign body. Osteomyelitis evaluation. COMPARISON: None TECHNIQUE: Left humerus, 2 views Left forearm, 2 views FINDINGS: Left humerus: Bones have normal alignment at the shoulder and elbow. The joint spaces are normal. No fracture or subluxation. No erosion or periostitis. No elbow joint effusion, radiopaque foreign body or soft tissue gas. Left forearm: Alignment is normal at the elbow and wrist. The radius and ulna are normal. The joint spaces of the wrist are maintained. Incidentally noted is ulna negative variance. There appears to be mild soft tissue swelling at the dorsal forearm without soft tissue gas or radiopaque foreign body. XR/XR forearm LT 2V IMPRESSION: * No radiopaque foreign body in the left arm or forearm. * No evidence of osteomyelitis in the examined extremity. * The soft tissues appear to be mildly swollen along the dorsal aspect of the forearm.
--- NOTE | ~2022-03-07 | US_ITS ---
EXAMINATION: US VENOUS WITH DOPPLER UPPER EXTREMITY, LEFT CLINICAL INFORMATION: Suspected DVT. Left arm edema and pain and swelling. COMPARISON: None TECHNIQUE: Ultrasound of the upper extremity is performed using compression sonography and color and pulse Doppler flow with assessment of augmentation of flow. There is also imaging and Doppler assessment of the jugular and subclavian veins. Spectral analysis with color-flow imaging is performed. FINDINGS: Respiratory variation, normal compression, and augmented flow are noted throughout the upper extremity including the axillary, brachial, cubital, and radial and ulnar veins. There is normal flow in the internal jugular and subclavian veins. There is no visible deep or superficial thrombophlebitis. If the patient's symptoms progress, a followup ultrasound in 5 -7 days might be of value to exclude proximal propagation from a nonvisualized distal arm vein. Corresponding to the site of the soft tissue swelling at the level of the posterior part of the left humerus there is no underlying sonographically detectable focal abnormalities. Incidental note is made of multiple prominent left lower cervical lymph node, of indeterminate etiology. US/US venous duplex UE LT IMPRESSION: No DVT demonstrated in the left upper extremity.
--- NOTE | ~2022-03-07 | XR_ITS ---
EXAMINATION: XR CHEST CLINICAL INFORMATION: Difficulty breathing COMPARISON: Chest 10/30/2021 TECHNIQUE: Frontal view of the chest was obtained. FINDINGS: No significant abnormality is noted involving the heart, lungs, mediastinum, bony thorax or soft tissues. XR/XR chest 1V IMPRESSION: Unremarkable chest examination.
--- NOTE | ~2022-03-07 | XR_ITS ---
EXAMINATION: XR FOREARM LEFT XR HUMERUS LEFT CLINICAL INFORMATION: Foreign body. Osteomyelitis evaluation. COMPARISON: None TECHNIQUE: Left humerus, 2 views Left forearm, 2 views FINDINGS: Left humerus: Bones have normal alignment at the shoulder and elbow. The joint spaces are normal. No fracture or subluxation. No erosion or periostitis. No elbow joint effusion, radiopaque foreign body or soft tissue gas. Left forearm: Alignment is normal at the elbow and wrist. The radius and ulna are normal. The joint spaces of the wrist are maintained. Incidentally noted is ulna negative variance. There appears to be mild soft tissue swelling at the dorsal forearm without soft tissue gas or radiopaque foreign body. XR/XR humerus LT IMPRESSION: * No radiopaque foreign body in the left arm or forearm. * No evidence of osteomyelitis in the examined extremity. * The soft tissues appear to be mildly swollen along the dorsal aspect of the forearm.
[2022-03-07 08:49] VITALS: BP 158/77; PULSE 77; RESP 18; TEMP 36.4; O2SAT 94; BMI 34.0
--- NOTE | 2022-03-07 08:54 | ECG_ITS ---
Test Reason : diff breathing Blood Pressure : / mmHG Vent. Rate : 072 BPM Atrial Rate : 072 BPM P-R Int : 204 ms QRS Dur : 082 ms QT Int : 438 ms P-R-T Axes : 067 -18 042 degrees QTc Int : 479 ms Normal sinus rhythm Normal ECG No previous ECGs available Referred By: Generic ED Physician Electronically Signed By:SAGE TERRAZAS
--- NOTE | 2022-03-07 08:57 | PC.NURSE ---
lungs - tight and slight exp wheezing all lobes.
[2022-03-07 09:11] LABS: Eosinophils Absolute Auto 0.3 X10*3/uL (0.0-0.4); Imm Gran Abs Auto 0.02 X10*3/uL (0.00-0.03); Imm Gran Pct Auto 0.4 % (0.0-0.4); MANUAL DIFF FLAG SCAN; Mean Corpuscular Volume 88.5 fL (80.0-98.0); PLT CLUMP 1; SCAN SMEAR FLAG 1
[2022-03-07 09:12] LABS: Basophils Percent Auto 0.4 % (0-2); Eosinophils Percent Auto 5.5 % (0-4); Hematocrit 46.9 % (37.0-47.0); Lymphocytes Absolute Auto 1.3 X10*3/uL (1.2-4.9); Lymphocytes Percent Auto 27.9 % (20-40); Mean Corpuscular HGB Conc 34.1 g/dl (31.0-35.0); Mean Corpuscular Hemoglobin 30.2 pg (27.0-33.0); Monocytes Absolute Auto 0.3 X10*3/uL (0.1-1.2); Monocytes Percent Auto 6.8 % (2-11); Neutrophils Absolute Auto 2.8 x10*3/uL (2.0-8.3); Red Cell Distribution Width 12.8 % (11.0-16.0)
[2022-03-07 09:13] LABS: White Blood Count 4.7 X10*3/uL (4.8-10.8)
[2022-03-07 09:26] LABS: Anion Gap 14 (12-20); Blood Urea Nitrogen 7 mg/dL (9-16); Calcium 8.8 mg/dL (8.4-10.2); Carbon Dioxide 26 mmol/L (22-29); Chloride 99 mmol/L (96-108); Creatinine Clr Calc Pharmacy 96.1; Estimated Glomerular Filt Rate > 60; Glucose Random 113 mg/dL (60-115); Potassium 4.1 mmol/L (3.3-5.1); Sodium 135 mmol/L (135-145)
[2022-03-07 09:33] LABS: B Type Natriuretic Peptide 23 pg/mL (<100); Mean Platelet Volume 10.8 fL (9.4-12.3); Platelet Count 113 X10*3/uL (160-400); SLIDE REVIEW VERIFIED; Troponin-I High Sensitivity < 3.5 ng/L (<3.5-17.0)
[2022-03-07 10:59] VITALS: BP 141/87; PULSE 64; RESP 18; TEMP 36.6; O2SAT 94
--- NOTE | 2022-03-07 12:04 | ED_ITS ---
HPI - General Adult General Chief complaint: General Medical Stated complaint: DIff breathing, left arm swollen Time Seen by Provider: 03/07/22 12:04 History of Present Illness HPI narrative: Patient with 2 complaints, 1st complaint is asthma flare where she has been using her inhaler without relief of wheezing and chest tightness She has had no fever no cough no sputum, and the shortness of breath is very typical of her asthma She also complains of for a number of weeks having a swelling in her left upper arm which is mildly painful, does not recall any injury Patient is an IV drug user who does inject that area Related Data Home Medications Medication Instructions Recorded Confirmed acetaminophen 500 mg tablet 1,000 mg PO Q4H PRN fever or pain 10/30/21 10/30/21 (Tylenol Extra Strength) albuterol sulfate 90 mcg/actuation 2 puff PO Q4H PRN Shortness Of 10/30/21 10/30/21 aerosol inhaler (ProAir HFA) Breath citalopram 20 mg tablet 1 tab PO DAILY 10/30/21 10/30/21 dolutegravir 50 mg tablet (Tivicay) 1 tab PO DAILY 10/30/21 10/30/21 emtricitabine 200 mg-tenofovir 1 tab PO DAILY 10/30/21 10/30/21 alafenamide fumarate 25 mg tablet (Descovy) methadone 10 mg/mL oral concentrate 115 mg PO DAILY 10/30/21 10/30/21 Previous Rx's Medication Instructions Recorded valacyclovir 1 gram tablet 1,000 mg PO TID 10 days #30 tabs 06/06/20 (Valtrex) fluticasone propionate 110 1 puff inhalation BID #12 grams 10/31/21 mcg/actuation HFA aerosol inhaler (Flovent HFA) nicotine 14 mg/24 hr daily 1 patch transdermal DAILY #28 ea 10/31/21 transdermal patch (Nicoderm CQ) prednisone 20 mg tablet 40 mg PO DAILY 5 days #10 tabs 10/31/21 albuterol sulfate 90 mcg/actuation 2 puff inhalation Q4-6H PRN 03/07/22 aerosol inhaler shortness of breath or wheezing #8.5 grams prednisone 20 mg tablet 60 mg PO DAILY 5 days #15 tabs 03/07/22 Allergies Allergy/AdvReac Type Severity Reaction Status Date / Time No Known Allergies Allergy Verified 04/19/21 00:12 Review of Systems Review of Systems: Positive for asthma wheezing and left arm swelling Negatives are no fever no chills no dizziness no weakness no headache no neck pain no stiff neck no cough no sputum no runny nose no abdominal pain no nausea vomiting or diarrhea no leg swelling no calf pain no calf swelling Yes all other systems are reviewed and are negative [facility] Past Medical History Source: nursing notes reviewed Medical History Asthma Genital herpes Hep C w/o coma, chronic HIV (human immunodeficiency virus infection) Substance abuse Social History Social History Alcohol intake: never Patient Tobacco Use Status: Current everyday Tobacco user Substance Use Type: Crack/Cocaine and Heroin Advance Directives: No Advance Directives Information Provided: No service: No Current occupational status: unemployed Physical Exam ED Vital Signs: Vital Signs - 24 hr 03/07/22 08:49 03/07/22 10:59 03/07/22 12:27 Temperature 97.5 F 97.8 F Pulse Rate 77 64 63 Respiratory Rate 18 18 18 Blood Pressure 158/77 H 141/87 H Pulse Oximetry 94 94 Oxygen Delivery Method Room Air Room Air 03/07/22 13:34 Temperature 98.0 F Pulse Rate 69 Respiratory Rate 18 Blood Pressure 138/85 Pulse Oximetry 92 Oxygen Delivery Method Room Air BMI result Body Mass Index 34.0 General appearance is no acute distress speaking full sentences comfortable The head is normocephalic atraumatic Eyes pupils equal round react light extraocular motions are intact The pharynx is clear with no redness swelling or exudate, mucous membranes are moist Neck is supple Chest there is decreased breath sounds with wheezing, no prolonged expiration bilaterally Heart no murmur Abdomen soft nontender Extremities full range of motion x4 The left arm has an area of swelling in the biceps area, is not red it is not warm it is not tender, the skin color is normal it is neurovascular intact distal The legs there is no calf tenderness or swelling there is no leg swelling Skin no rash Neuro no focal deficit Course Course Course Narrative: Left upper extremity ultrasound did not show any clot, the area of swelling did not show any pus or abscess or abnormality, x-rays did not show any bony abnormality, no osteomyelitis no gas On physical exam the skin is normal color there is no tenderness no fluctuance no evidence of abscess Chest x-ray was normal no pneumonia, patient has no cough no upper respiratory symptoms The patient was treated for wheezing and asthma with the nebulizer and felt much better after treatment Lungs were clear vital signs were normal, patient ambulated without discomfort, speaking full sentences and was discharged with recommendation to follow with surgeon for further evaluation of the left arm is swelling Medical Decision Making Lab Data Result diagrams: 03/07/22 09:02 03/07/22 09:02 Labs: Lab Results 03/07/22 03/07/22 03/07/22 Range/Units 09:02 09:02 09:02 WBC 4.7 L (4.8-10.8) X10*3/uL RBC 5.30 (4.20-5.50) X10*6/uL Hgb 16.0 (12.0-16.0) g/dl Hct 46.9 (37.0-47.0) % MCV 88.5 (80.0-98.0) fL MCH 30.2 (27.0-33.0) pg MCHC 34.1 (31.0-35.0) g/dl RDW 12.8 (11.0-16.0) % Plt Count 113 L D (160-400) X10*3/uL MPV 10.8 (9.4-12.3) fL Immature Gran % (Auto) 0.4 (0.0-0.4) % Neut % (Auto) 59.0 (45-73) % Lymph % (Auto) 27.9 (20-40) % [place] % (Auto) 6.8 (2-11) % Eos % (Auto) 5.5 H (0-4) % Baso % (Auto) 0.4 (0-2) % Lymph # (Auto) 1.3 (1.2-4.9) X10*3/uL [place] # (Auto) 0.3 (0.1-1.2) X10*3/uL Eos # (Auto) 0.3 (0.0-0.4) X10*3/uL Baso # (Auto) 0.0 (0.0-0.2) X10*3/uL Abs Immat Gran (auto) 0.02 (0.00-0.03) X10*3/uL Absolute Neuts (auto) 2.8 (2.0-8.3) x10*3/uL Absolute Nucleated RBC 0.000 (0.0-0.012) X10*3/uL Nucleated RBC % (auto) 0.0 (0.0-0.2) /100WBC Smear Tech's Comments VERIFIED Sodium 135 (135-145) mmol/L Potassium 4.1 D (3.3-5.1) mmol/L Chloride 99 (96-108) mmol/L Carbon Dioxide 26 (22-29) mmol/L Anion Gap 14 (12-20) BUN 7 L (9-16) mg/dL Creatinine 0.93 (0.5-1.4) mg/dL Estim Creat Clear Calc 96.1 Estimated GFR > 60 Random Glucose 113 (60-115) mg/dL Calcium 8.8 (8.4-10.2) mg/dL Troponin I High Sens < 3.5 (<3.5-17.0) ng/L B-Natriuretic Peptide (<100) pg/mL 03/07/22 Range/Units 09:02 WBC (4.8-10.8) X10*3/uL RBC (4.20-5.50) X10*6/uL Hgb (12.0-16.0) g/dl Hct (37.0-47.0) % MCV (80.0-98.0) fL MCH (27.0-33.0) pg MCHC (31.0-35.0) g/dl RDW (11.0-16.0) % Plt Count (160-400) X10*3/uL MPV (9.4-12.3) fL Immature Gran % (Auto) (0.0-0.4) % Neut % (Auto) (45-73) % Lymph % (Auto) (20-40) % [place] % (Auto) (2-11) % Eos % (Auto) (0-4) % Baso % (Auto) (0-2) % Lymph # (Auto) (1.2-4.9) X10*3/uL [place] # (Auto) (0.1-1.2) X10*3/uL Eos # (Auto) (0.0-0.4) X10*3/uL Baso # (Auto) (0.0-0.2) X10*3/uL Abs Immat Gran (auto) (0.00-0.03) X10*3/uL Absolute Neuts (auto) (2.0-8.3) x10*3/uL Absolute Nucleated RBC (0.0-0.012) X10*3/uL Nucleated RBC % (auto) (0.0-0.2) /100WBC Smear Tech's Comments Sodium (135-145) mmol/L Potassium (3.3-5.1) mmol/L Chloride (96-108) mmol/L Carbon Dioxide (22-29) mmol/L Anion Gap (12-20) BUN (9-16) mg/dL Creatinine (0.5-1.4) mg/dL Estim Creat Clear Calc Estimated GFR Random Glucose (60-115) mg/dL Calcium (8.4-10.2) mg/dL Troponin I High Sens (<3.5-17.0) ng/L B-Natriuretic Peptide 23 (<100) pg/mL Discharge Plan Discharge Clinical Impression: Asthma with acute exacerbation, Left arm swelling Patient Disposition: Home, Self-Care Additional Instructions: X-rays did not show any deep bone infection or foreign bodies, ultrasound did not show any blood clot in the upper arm We are not sure what the lump in your upper arm is so it will probably need further imaging or evaluation, so follow with primary care doctor closely, or the surgeon whose number I gave you This may need to be imaged or perhaps even biopsied For asthma were starting steroids, use inhaler as directed Return any time any worse condition or any concerns Prescriptions: New albuterol sulfate 90 mcg/actuation HFA aerosol inhaler 2 puff inhalation Q4-6H PRN (Reason: shortness of breath or wheezing) Qty: 8.5 0RF prednisone 20 mg tablet 60 mg PO DAILY 5 Days Qty: 15 0RF No Action valacyclovir [Valtrex] 1 gram tablet 1,000 mg PO TID 10 Days Qty: 30 0RF citalopram 20 mg tablet 1 tab PO DAILY albuterol sulfate [ProAir HFA] 90 mcg/actuation HFA aerosol inhaler 2 puff PO Q4H PRN (Reason: Shortness Of Breath) Tivicay 50 mg tablet 1 tab PO DAILY Descovy 200-25 mg tablet 1 tab PO DAILY methadone 10 mg/mL Concentrate 115 mg PO DAILY Rx Instructions: patient takes 115 mg PO daily. is given take home from [facility] [phone] acetaminophen [Tylenol Extra Strength] 500 mg tablet 1,000 mg PO Q4H PRN (Reason: fever or pain) Flovent HFA 110 mcg/actuation HFA aerosol inhaler 1 puff inhalation BID Qty: 12 0RF prednisone 20 mg tablet 40 mg PO DAILY 5 Days Qty: 10 0RF nicotine [Nicoderm CQ] 14 mg/24 hr patch 24 hour 1 patch transdermal DAILY Qty: 28 0RF Interventions: ED Discharge Assessment Last Done: 03/07/22 15:15 Discharge Date/Time: 03/07/22 15:16
[2022-03-07] MEDS: predniSONE 20 MG TABLET 60 MG PO (12:15)
[2022-03-07] MEDS: Albuterol Sulfate 5 MG, Albuterol/Iprat 2.5/0.5MG 3 ML 3 ML INHALE (12:24)
[2022-03-07 12:27] VITALS: PULSE 63; RESP 18; O2SAT 98
[2022-03-07 13:34] VITALS: BP 138/85; PULSE 69; RESP 18; TEMP 36.7; O2SAT 92
== END 2022-03-07 15:16 | disposition home or self-care (01) ==
PROVIDERS: Emergency Provider Student in an Organized Health Care Education/Training Program; PCP Family Medicine
DX: J45.901 Unspecified asthma with (acute) exacerbation (principal); R06.02 Shortness of breath; R07.89 Other chest pain; R60.0 Localized edema; F11.90 Opioid use, unspecified, uncomplicated; F17.200 Nicotine dependence, unspecified, uncomplicated; F14.90 Cocaine use, unspecified, uncomplicated; Z71.6 Tobacco abuse counseling; Z79.899 Other long term (current) drug therapy
CPT/HCPCS: 36415; 71045; 73060; 73090; 80048; 83880; 84484; 85025; 93005; 93971; 94640; 99284

== ENCOUNTER 2022-11-12 17:07 | Inpatient (IN) | payer MEDICAID, SELFPAY ==
--- NOTE | ~2022-11-12 | XR_ITS ---
EXAMINATION: XR CHEST CLINICAL INFORMATION: Shortness of breath COMPARISON: None available. TECHNIQUE: Frontal view of the chest was obtained. FINDINGS: No significant abnormality is noted involving the heart, lungs, mediastinum, bony thorax or soft tissues. XR/XR chest 1V IMPRESSION: Normal portable chest x-ray.
--- NOTE | 2022-11-12 17:13 | ED.SOB ---
HPI - SOB/Dyspnea General Chief Complaint: Dyspnea Stated Complaint: SOB Source: patient and EMS Mode of arrival: EMS Limitations: no limitations History of Present Illness HPI Narrative: 47-year-old female history of asthma, HIV, hep C presents to the emergency department with shortness of breath, wheezing, productive cough x2 days. Patient reports that this feels like her typical asthma exacerbation, she ran out of albuterol inhaler so has not been able to use it. Patient reports she feels terrible. She reports coughing up thick yellow staff. EMS tells me that she was 88% on room air when they arrived, they gave her an albuterol treatment she is now 100% on room air. Patient is a current daily smoker. No history of PE or DVT, denies long travel, no history of malignancy. Related Data Home Medications Medication Instructions Recorded Confirmed albuterol sulfate 90 mcg/actuation 2 puff PO Q4H PRN Shortness Of 10/30/21 11/12/22 aerosol inhaler (ProAir HFA) Breath dolutegravir 50 mg tablet (Tivicay) 1 tab PO DAILY 10/30/21 10/30/21 emtricitabine 200 mg-tenofovir 1 tab PO DAILY 10/30/21 10/30/21 alafenamide fumarate 25 mg tablet (Descovy) methadone 10 mg/mL oral concentrate 115 mg PO DAILY 10/30/21 11/12/22 Allergies Allergy/AdvReac Type Severity Reaction Status Date / Time No Known Allergies Allergy Verified 04/19/21 00:12 Review of Systems Review of Systems: Constitutional : No Weight loss, No Fever, No Chills, No Fatigue, No Malaise ENT/Mouth : No sore throat, No Rhinorrhea Eyes: No Eye Pain, No Swelling, No Redness Cardiovascular : No Chest Pain, + SOB, No Dyspnea on Exertion, No Orthopnea, No Edema, No Palpitations Respiratory : No Cough, No Sputum, + Wheezing Gastrointestinal : No Nausea, No Vomiting, No Diarrhea, No Constipation, No abdominal Pain, No Hematochezia, No Melena Genitourinary : No Dysuria, No Urinary Frequency, No Hematuria, Musculoskeletal : No joint pain, No Myalgias, No Joint Swelling Skin : No Skin Lesions, No rash Neuro : No Weakness, No Numbness, No Dizziness, No Headache Psych : No Anxiety/Panic, No Depression All other systems reviewed and are negative Yes all other systems are reviewed and are negative [facility] Past Medical History Attestation statement: The following information was validated with the patient. Source: old records reviewed and nursing notes reviewed Medical History Asthma Genital herpes Hep C w/o coma, chronic HIV (human immunodeficiency virus infection) Substance abuse Social History Social History Alcohol intake: never Patient Tobacco Use Status: Current everyday Tobacco user Smoked in Last 30 Days: Yes Substance Use Type: Crack/Cocaine and Heroin Advance Directives: No Advance Directives Information Provided: No service: No Current occupational status: unemployed Physical Exam Vital Signs: Vital Signs: Last Vital Signs Temp 97.5 F 11/12/22 21:05 Pulse 105 H 11/12/22 21:05 Resp 18 11/12/22 21:05 BP 140/75 H 11/12/22 21:05 Pulse Ox 95 11/12/22 21:05 O2 Del Method Room Air 11/12/22 21:05 O2 Flow Rate 6 11/12/22 17:21 BMI result Body Mass Index 32.5 vss Appearance: Alert.? Oriented X3.? No acute distress.? Head: Normocephalic, atraumatic, no step-offs or deformities Eyes: Pupils equal, round and reactive to light.? ENT: Pharynx normal.? Neck: Normal inspection.? Neck supple.? CVS: Normal heart rate and rhythm.? Pulses normal.? Respiratory: No respiratory distress.? Breath sounds with significant wheezing throughout.? Abdomen: Soft and nontender.? Skin: Skin warm and dry.? Normal skin color.? Normal skin turgor.? Extremities: No lower extremity edema.? No calf ttp. 5/5 strength to bilateral upper and lower extremities Neuro: Oriented X 3.? No motor deficit.? No sensory deficit. CN 2-12 intact Course Reevaluation(s) Reevaluation #1: CBC with no acute findings. Chemistry with no acute electrolyte abnormalities requiring intervention. BNP negative. Normal chest x-ray. Decadron given since patient refused IV line therefore did not receive Solu-Medrol or magnesium. Continues to have wheezing, additional DuoNeb ordered. I suspect she will need hospital admission. Time: 19:51 Reevaluation #2: Patient remains wheezy. O2 saturation 90-93%. Patient is now allowing an IV. IV Zofran will be given she is complaining of some nausea. Spoke to hospitalist to admit patient. Time: 21:14 Medications Administered Discontinued Medications Generic Name Dose Route Start Last Admin Trade Name Artisq PRN Reason Stop Dose Admin Albuterol/Ipratropium 3 ml 11/12/22 19:48 11/12/22 20:33 Albuterol/Iprat 2.5/0.5mg 3 Ml Ampul.Neb INHALE 11/12/22 19:49 3 ml ONCE ONE Administration Dexamethasone Sodium Phosphate 10 mg 11/12/22 17:40 11/12/22 18:10 Dexamethasone Sod Phosphate 10 Mg/Ml Vial IVPUSH 11/12/22 17:41 10 mg ONCE ONE Administration Magnesium Sulfate 2 gm in 50 mls @ 25 mls/hr 11/12/22 17:12 11/12/22 18:10 Magnesium Sulfate/H2o IV 11/12/22 19:11 Not Given ONCE ONE Methylprednisolone Sodium Succinate 125 mg 11/12/22 17:12 11/12/22 18:10 Methylprednisolone Sod Succ 125 Mg/2 Ml Vial IVPUSH 11/12/22 17:13 Not Given ONCE ONE Medical Decision Making Medical Decision Making [facility] Narrative: 1748 47-year-old female presents with wheezing shortness of breath and productive cough x2 days Physical exam diffuse wheezing throughout Concerns for acute asthma exacerbation versus viral illness versus upper respiratory infection. Unlikely pulmonary embolism, patient PERC negative unlikely pneumonia. Plan albuterol, Decadron as patient is refusing IV, observation Differential Diagnosis Differential Diagnoses: The differential diagnosis associated with the presentation includes Concerns for acute asthma exacerbation versus viral illness versus upper respiratory infection. Unlikely pulmonary embolism, patient PERC negative unlikely pneumonia. Admission/Observation Consideration of admission/observation: Escalation of care including admission/observation considered Lab Data 11/12/22 19:07 11/12/22 19:07 Labs: Lab Results 11/12/22 11/12/22 11/12/22 Range/Units 19:07 19:07 19:07 WBC 4.3 L (4.8-10.8) X10*3/uL RBC 5.38 (4.20-5.50) X10*6/uL Hgb 15.8 (12.0-16.0) g/dl Hct 45.3 (37.0-47.0) % MCV 84.2 (80.0-98.0) fL MCH 29.4 (27.0-33.0) pg MCHC 34.9 (31.0-35.0) g/dl RDW 12.8 (11.0-16.0) % Plt Count 105 L (160-400) X10*3/uL MPV 10.2 (9.4-12.3) fL Immature Gran % (Auto) 0.2 (0.0-0.4) % Neut % (Auto) 72.8 (45-73) % Lymph % (Auto) 16.9 L (20-40) % [place] % (Auto) 6.8 (2-11) % Eos % (Auto) 2.8 (0-4) % Baso % (Auto) 0.5 (0-2) % Lymph # (Auto) 0.7 L (1.2-4.9) X10*3/uL [place] # (Auto) 0.3 (0.1-1.2) X10*3/uL Eos # (Auto) 0.1 (0.0-0.4) X10*3/uL Baso # (Auto) 0.0 (0.0-0.2) X10*3/uL Abs Immat Gran (auto) 0.01 (0.00-0.03) X10*3/uL Absolute Neuts (auto) 3.1 (2.0-8.3) x10*3/uL Absolute Nucleated RBC 0.000 (0.0-0.012) X10*3/uL Nucleated RBC % (auto) 0.0 (0.0-0.2) /100WBC Sodium 140 (135-145) mmol/L Potassium 4.0 (3.3-5.1) mmol/L Chloride 104 (96-108) mmol/L Carbon Dioxide 26 (22-29) mmol/L Anion Gap 14 (12-20) BUN 9 (9-16) mg/dL Creatinine 0.85 (0.5-1.4) mg/dL Estim Creat Clear Calc 101.7 Estimated GFR > 60 Random Glucose 110 (60-115) mg/dL Calcium 9.2 (8.4-10.2) mg/dL Magnesium 1.7 (1.6-2.6) mg/dL Total Bilirubin 0.7 (0.0-1.0) mg/dL AST 40 H (5-31) U/L ALT 30 (0-31) U/L Alkaline Phosphatase 58 (39-117) U/L B-Natriuretic Peptide 42 (<100) pg/mL Total Protein 8.6 H (6.5-8.0) g/dL Albumin 4.0 (3.5-5.0) g/dL COVID-19 (GINO) (Negative) COVID-19 Clin Com 11/12/22 Range/Units 19:07 WBC (4.8-10.8) X10*3/uL RBC (4.20-5.50) X10*6/uL Hgb (12.0-16.0) g/dl Hct (37.0-47.0) % MCV (80.0-98.0) fL MCH (27.0-33.0) pg MCHC (31.0-35.0) g/dl RDW (11.0-16.0) % Plt Count (160-400) X10*3/uL MPV (9.4-12.3) fL Immature Gran % (Auto) (0.0-0.4) % Neut % (Auto) (45-73) % Lymph % (Auto) (20-40) % [place] % (Auto) (2-11) % Eos % (Auto) (0-4) % Baso % (Auto) (0-2) % Lymph # (Auto) (1.2-4.9) X10*3/uL [place] # (Auto) (0.1-1.2) X10*3/uL Eos # (Auto) (0.0-0.4) X10*3/uL Baso # (Auto) (0.0-0.2) X10*3/uL Abs Immat Gran (auto) (0.00-0.03) X10*3/uL Absolute Neuts (auto) (2.0-8.3) x10*3/uL Absolute Nucleated RBC (0.0-0.012) X10*3/uL Nucleated RBC % (auto) (0.0-0.2) /100WBC Sodium (135-145) mmol/L Potassium (3.3-5.1) mmol/L Chloride (96-108) mmol/L Carbon Dioxide (22-29) mmol/L Anion Gap (12-20) BUN (9-16) mg/dL Creatinine (0.5-1.4) mg/dL Estim Creat Clear Calc Estimated GFR Random Glucose (60-115) mg/dL Calcium (8.4-10.2) mg/dL Magnesium (1.6-2.6) mg/dL Total Bilirubin (0.0-1.0) mg/dL AST (5-31) U/L ALT (0-31) U/L Alkaline Phosphatase (39-117) U/L B-Natriuretic Peptide (<100) pg/mL Total Protein (6.5-8.0) g/dL Albumin (3.5-5.0) g/dL COVID-19 (GINO) Negative (Negative) COVID-19 Clin Com See Note Discharge Plan Discharge Clinical Impression: Asthma with acute exacerbation Patient Disposition: Admitted As Inpatient
[2022-11-12 17:21] VITALS: BP 143/94; PULSE 93; RESP 22; TEMP 36.4; O2SAT 98
[2022-11-12 17:22] VITALS: BP 133/88; PULSE 89; O2SAT 89; BMI 32.5
[2022-11-12] MEDS: dexAMETHasone sod phosphate 10 MG/ML VIAL IVPUSH (18:10)
[2022-11-12 18:11] VITALS: PULSE 99; RESP 18; O2SAT 94
--- NOTE | 2022-11-12 18:13 | PC.NURSE ---
Pt refused IV, accepting lab work to be done via straight stick. Provider aware. 92-95% on room air after treatment
[2022-11-12 19:13] LABS: MANUAL DIFF FLAG NO
[2022-11-12 19:15] LABS: Basophils Percent Auto 0.5 % (0-2); Eosinophils Absolute Auto 0.1 X10*3/uL (0.0-0.4); Eosinophils Percent Auto 2.8 % (0-4); Hematocrit 45.3 % (37.0-47.0); Hemoglobin 15.8 g/dl (12.0-16.0); Imm Gran Abs Auto 0.01 X10*3/uL (0.00-0.03); Imm Gran Pct Auto 0.2 % (0.0-0.4); Lymphocytes Absolute Auto 0.7 X10*3/uL (1.2-4.9); Lymphocytes Percent Auto 16.9 % (20-40); Mean Corpuscular HGB Conc 34.9 g/dl (31.0-35.0); Mean Corpuscular Hemoglobin 29.4 pg (27.0-33.0); Mean Corpuscular Volume 84.2 fL (80.0-98.0); Mean Platelet Volume 10.2 fL (9.4-12.3); Monocytes Absolute Auto 0.3 X10*3/uL (0.1-1.2); Monocytes Percent Auto 6.8 % (2-11); Neutrophils Absolute Auto 3.1 x10*3/uL (2.0-8.3); Neutrophils Percent Auto 72.8 % (45-73); Platelet Count 105 X10*3/uL (160-400); Red Blood Count 5.38 X10*6/uL (4.20-5.50); Red Cell Distribution Width 12.8 % (11.0-16.0); White Blood Count 4.3 X10*3/uL (4.8-10.8)
[2022-11-12 19:27] LABS: COVID-19 Test Negative (Negative); IDNOW Serial# 08D9AD1C
[2022-11-12 19:30] LABS: Alanine Aminotransferase 30 U/L (0-31); Alkaline Phosphatase 58 U/L (39-117); Anion Gap 14 (12-20); Aspartate Amino Transferase 40 U/L (5-31); Bilirubin Total 0.7 mg/dL (0.0-1.0); Blood Urea Nitrogen 9 mg/dL (9-16); Calcium 9.2 mg/dL (8.4-10.2); Carbon Dioxide 26 mmol/L (22-29); Chloride 104 mmol/L (96-108); Creatinine Clr Calc Pharmacy 101.7; Estimated Glomerular Filt Rate > 60; Glucose Random 110 mg/dL (60-115); Magnesium 1.7 mg/dL (1.6-2.6); Sodium 140 mmol/L (135-145); Total Protein 8.6 g/dL (6.5-8.0)
[2022-11-12 19:35] LABS: B Type Natriuretic Peptide 42 pg/mL (<100)
[2022-11-12] MEDS: Albuterol/Iprat 2.5/0.5MG 3 ML AMPUL.NEB INHALE (20:33)
[2022-11-12 20:35] VITALS: PULSE 99; RESP 20; O2SAT 93
--- NOTE | 2022-11-12 20:59 | P.HPHOSP_ITS ---
patient seen and examined at bedside, agree with the findings in the H&P, assessment and plan, patient will be admitted for asthma exacerbation, started on Solu-Medrol, DuoNeb p.r.n. as well as scheduled, follow symptom relief for full H&P please see below History of Present Illness Date of Service: 11/12/22 Attending physician on admission: Gordy Hyaes Chief Complaint: Wheezing, SOB Pt is a 47-year-old female with a PMH significant for?moderate persistent asthma, HIV, hep C, and opioid use disorder on methadone who presents to the ED with?shortness of breath and difficulty breathing since last night. Patient states last night she experienced sudden onset shortness of breath and difficulty breathing. Had phlegm that caught in her throat that she could not cough up. Patient was unable to sleep during the night. This morning her shortness of breath was worse, and when she went to go to the bathroom she panicked, could not breathe, became incontinent of urine, and the tissues going to pass out. And thus called EMS. Upon arrival EMS found her to be satting at 88% on RA. Patient also notes that she is nauseous and lightheaded, but she attributes this to not having eaten all day. Patient has a history of asthma attacks that have increased she has gotten older, now up to 1-2 times per year. Patient also notes that she ran out of her albuterol inhaler 2 weeks ago and has not refilled her prescription. Patient states she has been using her albuterol inhaler every day, normally at least 4 times daily. Patient currently still smokes, but lately she has been using a vape inhaler. In the ED patient was afebrile but tachycardic to 105 and tachypneic up to 22, satting at 98% with an aerosol mask. Labs were significant for mild leukopenia of 4.3. H&H normal. Electrolytes normal. Renal function WNL. CXR showed no acute cardiopulmonary process.Pt was treated with dexamethasone, DuoNebs, and ondansetron. Pt will be admitted to the hospital for observation for acute moderate persistent asthma attack. Review of Systems Review of Systems: Shortness of breath Wheezing Cough occasionally productive of thick phlegm Nausea Lightheadedness No chest pain/pressure, palpitations No abdominal pain Yes all other systems are reviewed and are negative PMFSH Medical History Asthma Genital herpes Hep C w/o coma, chronic Hepatitis C HIV (human immunodeficiency virus infection) HIV (human immunodeficiency virus infection) Substance abuse Substance use disorder Social History Alcohol intake: never Patient Tobacco Use Status: Current everyday Tobacco user Smoked in Last 30 Days: Yes Substance Use Type: Crack/Cocaine and Heroin Advance Directives: No Advance Directives Information Provided: No service: No Current occupational status: unemployed Meds Allergies Allergy/AdvReac Type Severity Reaction Status Date / Time No Known Allergies Allergy Verified 04/19/21 00:12 Active Medications: Current Medications Pharmacy Consult (Consult Rx Perform Med Rec) 1 each MISCELLANE ONCE PRN PRN Reason: Consult order Home Medications Medication Instructions Recorded Confirmed Last Taken Type albuterol sulfate 90 mcg/actuation 2 puff PO Q4H PRN Shortness Of 10/30/21 11/12/22 Unknown History aerosol inhaler (ProAir HFA) Breath dolutegravir 50 mg tablet (Tivicay) 1 tab PO DAILY 10/30/21 10/30/21 10/29/21 History emtricitabine 200 mg-tenofovir 1 tab PO DAILY 10/30/21 10/30/21 10/29/21 History alafenamide fumarate 25 mg tablet (Descovy) methadone 10 mg/mL oral concentrate 115 mg PO DAILY 10/30/21 11/12/22 11/12/22 History Physical Exam Vital Signs and Narrative: Vital Signs: Last Vital Signs Temp 97.5 F 11/12/22 17:21 Pulse 99 11/12/22 20:35 Resp 20 11/12/22 20:35 BP 143/94 H 11/12/22 17:21 Pulse Ox 94 11/12/22 18:11 O2 Del Method Room Air 11/12/22 18:11 O2 Flow Rate 6 11/12/22 17:21 BMI result Body Mass Index 32.5 Constitutional: Alert, in no acute distress. Mental Status: Oriented to person, place and time. Eyes: Pupils are equal, round, and reactive to light. Ear, Nose, and Throat: Oropharynx clear, mucous membranes moist. Ears and nose without deformities. Trachea midline. Respiratory: Diffuse expiratory wheezing throughout. Cardiovascular: S1, S2 regular. No murmurs, rubs, or gallops. Gastrointestinal: Abdomen soft, non-tender, non-distended. Normal bowel sounds. Neurologic: Cranial nerves II-XII are grossly intact bilaterally. No focal neurological deficits. Moves all extremities spontaneously. Skin: No rashes or lesions noted. Musculoskeletal: No cyanosis or clubbing. Extremities: No edema. Psychiatric: Normal mood and affect. Results Labs 11/12/22 19:07 11/12/22 19:07 Labs: Laboratory Results - last 24 hr 11/12/22 11/12/22 11/12/22 19:07 19:07 19:07 MCV 84.2 MCH 29.4 MCHC 34.9 RDW 12.8 Plt Count 105 L MPV 10.2 Immature Gran % (Auto) 0.2 Neut % (Auto) 72.8 Lymph % (Auto) 16.9 L [place] % (Auto) 6.8 Eos % (Auto) 2.8 Baso % (Auto) 0.5 Lymph # (Auto) 0.7 L [place] # (Auto) 0.3 Eos # (Auto) 0.1 Baso # (Auto) 0.0 Abs Immat Gran (auto) 0.01 Absolute Neuts (auto) 3.1 Absolute Nucleated RBC 0.000 Nucleated RBC % (auto) 0.0 Anion Gap 14 Estim Creat Clear Calc 101.7 Estimated GFR > 60 Random Glucose 110 Calcium 9.2 Magnesium 1.7 Total Bilirubin 0.7 AST 40 H ALT 30 Alkaline Phosphatase 58 B-Natriuretic Peptide 42 Total Protein 8.6 H Albumin 4.0 COVID-19 (GINO) COVID-19 Clin Com 11/12/22 19:07 MCV MCH MCHC RDW Plt Count MPV Immature Gran % (Auto) Neut % (Auto) Lymph % (Auto) [place] % (Auto) Eos % (Auto) Baso % (Auto) Lymph # (Auto) [place] # (Auto) Eos # (Auto) Baso # (Auto) Abs Immat Gran (auto) Absolute Neuts (auto) Absolute Nucleated RBC Nucleated RBC % (auto) Anion Gap Estim Creat Clear Calc Estimated GFR Random Glucose Calcium Magnesium Total Bilirubin AST ALT Alkaline Phosphatase B-Natriuretic Peptide Total Protein Albumin COVID-19 (GINO) Negative COVID-19 Clin Com See Note Imaging Radiologist's Impressions: Impressions Chest X-Ray 11/12/22 17:58 IMPRESSION: Normal portable chest x-ray. Assessment and Plan (1) Asthma with acute exacerbation: Status: Acute Plan Pt is a 47-year-old female with a PMH significant for?moderate persistent asthma, HIV, hep C, and opioid use disorder on methadone who presents to the ED with?shortness of breath and difficulty breathing since last night. Patient will be admitted to the hospital under observation for treatment of acute moderate persistent asthma exacerbation. Acute moderate persistent asthma exacerbation Patient with diffuse wheezing upon examination, satting at 88% on RA according to EMS, not using albuterol inhaler for the past 2 weeks Solu-Medrol 40mg q12h DuoNebs Patient's asthma is not well controlled Patient currently only using an albuterol rescue inhaler, often up to four times daily Pt should f/u outpatient with PCP to be placed on maintenance inhaler HIV Patient has apparently not been taking her medications for over 4 months, is apparently on Tivicay, Descovy, Valtrex Will check CD4 count Patient has been counseled on the importance of medication compliance Patient should follow-up with PCP Mood disorder Patient has not been taking her home meds for over 4 months, is apparently on citalopram Patient needs to follow-up with PCP to reestablish medical compliance Opioid use disorder Continue methadone Full Code Attending:?Dr. Hayes DVT Prophylaxis: Lovenox Patient will be admitted to the hospital under observation for treatment of acute moderate persistent asthma exacerbation. Time Spent With Patient Time: Total time managing care of this patient today ____ minutes. Quality Stroke Does the patient have a stroke diagnosis?: No VTE Prior VTE?: No VTE Risk Level:: Medical - moderate - high VTE Device Contraindication: Treatment Not Indicated VTE Drug Contraindication: N/A - Med Ordered
[2022-11-12 21:05] VITALS: BP 140/75; PULSE 105; RESP 18; TEMP 36.4; O2SAT 95
--- NOTE | 2022-11-12 21:07 | PHA.MEDREC ---
Addendum entered by Meche Conner [facility] 11/12/22 22:05: SENT MESSAGE TO JONATHAN BRAN REGARDING MEDICATIONS SHE HAS NOT TAKEN RECENTLY. ORDERED A CD4 COUNT . Original Note: Pharmacy Consult ? Medication Reconciliation Pharmacy has completed the medication reconciliation. SPOKE WITH PATIENT IN THE ED. PATIENT HAS NOT TAKEN ANY MEDICATIONS IN 4 MONTHS OR MORE. PT IS ONLY TAKING 115 MG OF METHADONE DAILY FROM [facility] ON [facility] IN [place]. SHE STATES SHE IS SUPPOSED TO BE ON HIV MEDS (TIVICAY AND DESCOVY), CITALOPRAM AND VALTREX.
[2022-11-12] MEDS: ondansetron HCL 4 MG/2 ML VIAL IVPUSH (21:24)
--- NOTE | 2022-11-12 21:27 | PC.NURSE ---
pt medicated per Aug for nausea. Will continue to monitor
[2022-11-12 22:15] VITALS: BP 138/80; PULSE 104; RESP 18; TEMP 36.9; O2SAT 95
[2022-11-13] VITALS (8 sets, daily range): BP systolic 136–151; BP diastolic 70–89; PULSE 71–98; RESP 16–20; TEMP 36–36.6; O2SAT 92–98
--- NOTE | 2022-11-13 00:04 | PC.NURSE ---
Pt is sleeping at this time, no sign of respiratory distress.
--- NOTE | 2022-11-13 04:28 | PC.NURSE ---
pt sleeping at this time sign of distress.
[2022-11-13] MEDS: methylPREDNISolone Sod Succ 40 MG/ML VIAL IVPUSH ×2 (05:49→18:14)
[2022-11-13] MEDS: 0.9 % Sodium Chloride Flush 3 ML SYRINGE IVFLUSH ×4 (05:50→21:12)
[2022-11-13] MEDS: Albuterol/Iprat 2.5/0.5MG 3 ML AMPUL.NEB INHALE ×3 (05:59→19:59)
--- NOTE | 2022-11-13 06:16 | PC.NURSE ---
Medicated per Aug, Notified respiratory regarding breathing treatment, pt tolerated well.
--- NOTE | 2022-11-13 06:52 | PC.NURSE ---
Delivered meal tray, will continue to monitor
[2022-11-13] MEDS: Enoxaparin Sodium 40 MG/0.4 ML SYRINGE SUBCUT (09:02)
--- NOTE | 2022-11-13 09:40 | PC.NURSE ---
methadone dose verified and faxed to pharmacy
--- NOTE | 2022-11-13 10:01 | HE.PHANOTE ---
Re: methadone verification last dose 115 mg given on 11/12 by TANIA verified by Antonio CURTIS with Shonda at clinic
[2022-11-13] MEDS: methADONE HCl 20 MG/2 ML ORAL.CONC 115 MG PO (11:15)
--- NOTE | 2022-11-13 12:50 | P.PNIM_ITS ---
Subjective Subjective Date of Service: 11/13/22 Interval History: Feels better still wheezy denies any fever no orther overnight events Review of Systems Review of Systems: Yes all other systems are reviewed and are negative Physical Exam Vital Signs: Vital Signs: Last Vital Signs Temp 97.8 F 11/13/22 09:56 Pulse 98 11/13/22 12:04 Resp 16 11/13/22 12:04 BP 136/89 11/13/22 09:56 Pulse Ox 94 11/13/22 09:56 O2 Del Method Room Air 11/13/22 09:56 O2 Flow Rate 6 11/12/22 17:21 BMI result Body Mass Index 32.5 Const: Other: Constitutional : Awake, interactive, not in distress Neck : Normal inspection, Supple Cardiovascular : RRR, no JVP, no lower extremity edema Respiratory : good bilateral air entry, no crackles, bilateral expiratory wheezes Gastrointestinal: soft, lax, Normal bowel sounds, Non tender Skin : Warm, Dry Neurological : Alert & oriented x3, No focal deficit Objective Data Active Medications Acetaminophen (Acetaminophen 325 Mg Tablet) 650 mg PO Q6H PRN PRN Reason: Pain, Mild (Pain Scale 1-3) Albuterol/Ipratropium (Albuterol/Iprat 2.5/0.5mg 3 Ml Ampul.Neb) 3 ml INHALE RQ4H WHILE AWAKE [facility] Last Admin: 11/13/22 12:03 Dose: 3 ml Documented By: RAFAEL Albuterol/Ipratropium (Albuterol/Iprat 2.5/0.5mg 3 Ml Ampul.Neb) 3 ml INHALE ONCE PRN PRN Reason: wheezing Docusate Sodium (Docusate Sodium 100 Mg Capsule) 100 mg PO DAILY PRN PRN Reason: Constipation Enoxaparin Sodium (Enoxaparin Sodium 40 Mg/0.4 Ml Syringe) 40 mg SUBCUT Q24H [facility] Last Admin: 11/13/22 09:02 Dose: 40 mg Documented By: VANESSA Methadone HCl (Methadone Hcl 20 Mg/2 Ml Oral.Conc) 115 mg PO DAILY [facility] Last Admin: 11/13/22 11:15 Dose: 115 mg Documented By: KATERINA Methylprednisolone Sodium Succinate (Methylprednisolone Sod Succ 40 Mg/Ml Vial) 40 mg IVPUSH Q12H [facility] Last Admin: 11/13/22 05:49 Dose: 40 mg Documented By: STEFFEN Ondansetron HCl (Ondansetron Hcl 4 Mg/2 Ml Vial) 4 mg IVPUSH Q8H PRN PRN Reason: Nausea and Vomiting Pharmacy Consult (Consult Rx Perform Med Rec) 1 each MISCELLANE ONCE PRN PRN Reason: Consult order Sodium Chloride (0.9 % Sodium Chloride Flush 3 Ml Syringe) [facility] Admin: 11/13/22 08:58 Dose: 3 ml Documented By: VANESSA Labs 11/12/22 19:07 11/12/22 19:07 Labs: Laboratory Results - last 24 hr 11/12/22 11/12/22 11/12/22 19:07 19:07 19:07 MCV 84.2 MCH 29.4 MCHC 34.9 RDW 12.8 Plt Count 105 L MPV 10.2 Immature Gran % (Auto) 0.2 Neut % (Auto) 72.8 Lymph % (Auto) 16.9 L [place] % (Auto) 6.8 Eos % (Auto) 2.8 Baso % (Auto) 0.5 Lymph # (Auto) 0.7 L [place] # (Auto) 0.3 Eos # (Auto) 0.1 Baso # (Auto) 0.0 Abs Immat Gran (auto) 0.01 Absolute Neuts (auto) 3.1 Absolute Nucleated RBC 0.000 Nucleated RBC % (auto) 0.0 Anion Gap 14 Estim Creat Clear Calc 101.7 Estimated GFR > 60 Random Glucose 110 Calcium 9.2 Magnesium 1.7 Total Bilirubin 0.7 AST 40 H ALT 30 Alkaline Phosphatase 58 B-Natriuretic Peptide 42 Total Protein 8.6 H Albumin 4.0 COVID-19 (GINO) COVID-19 Clin Com 11/12/22 19:07 MCV MCH MCHC RDW Plt Count MPV Immature Gran % (Auto) Neut % (Auto) Lymph % (Auto) [place] % (Auto) Eos % (Auto) Baso % (Auto) Lymph # (Auto) [place] # (Auto) Eos # (Auto) Baso # (Auto) Abs Immat Gran (auto) Absolute Neuts (auto) Absolute Nucleated RBC Nucleated RBC % (auto) Anion Gap Estim Creat Clear Calc Estimated GFR Random Glucose Calcium Magnesium Total Bilirubin AST ALT Alkaline Phosphatase B-Natriuretic Peptide Total Protein Albumin COVID-19 ([facility]) Negative COVID-19 Clin Com See Note Assessment and Plan (1) Asthma with acute exacerbation: Status: Acute Plan Pt is a 47-year-old female with a PMH significant for?moderate persistent asthma, HIV, hep C, and opioid use disorder on methadone who presents to the ED with?shortness of breath and difficulty breathing since last night. Patient will be admitted to the hospital under observation for treatment of acute moderate persistent asthma exacerbation. Acute moderate persistent asthma exacerbation Solu-Medrol 40mg q12h Of[place] asthma is not well controlled only using an albuterol rescue inhaler, often up to four times daily will need maintenance inhaler HIV Patient has apparently not been taking her medications for over 4 months, is apparently on Tivicay, Descovy, Valtrex pending CD4 count Patient has been counseled on the importance of medication compliance Patient should follow-up with PCP Mood disorder Patient has not been taking her home meds for over 4 months, is apparently on citalopram Patient needs to follow-up with PCP to reestablish medical compliance Opioid use disorder Continue methadone Full Code Attending:?Dr. Hayes DVT Prophylaxis: Lovenox Patient will be admitted to the hospital under observation for treatment of [place] moderate persistent asthma exacerbation. Time Spent With Patient Time: Total time managing care of this patient today ____ minutes. Quality Stroke Does the patient have a stroke diagnosis?: No VTE Prior VTE?: No VTE Risk Level:: Medical - moderate - high VTE Device Contraindication: Treatment Not Indicated VTE Drug Contraindication: N/A - Med Ordered
[2022-11-13] MEDS: Acetaminophen 325 MG TABLET 650 MG PO (13:25)
--- NOTE | 2022-11-13 15:51 | PC.NURSE ---
patient ambulating with steady gait. denies SOB at this time.
[2022-11-14] VITALS (7 sets, daily range): BP systolic 138–165; BP diastolic 83–99; PULSE 63–88; RESP 16–20; TEMP 36.1–36.4; O2SAT 93–97
[2022-11-14] MEDS: methylPREDNISolone Sod Succ 40 MG/ML VIAL IVPUSH ×2 (05:28→17:02)
[2022-11-14] MEDS: Albuterol/Iprat 2.5/0.5MG 3 ML AMPUL.NEB INHALE ×4 (08:29→19:39)
[2022-11-14] MEDS: 0.9 % Sodium Chloride Flush 3 ML SYRINGE IVFLUSH ×3 (09:22→21:01)
[2022-11-14] MEDS: methADONE HCl 20 MG/2 ML ORAL.CONC 115 MG PO (09:30)
[2022-11-14] MEDS: Enoxaparin Sodium 40 MG/0.4 ML SYRINGE SUBCUT (09:31)
[2022-11-14] MEDS: guaiFENesin LA 600 MG TAB.ER.12H 1200 MG PO ×2 (11:01→21:01)
--- NOTE | 2022-11-14 11:57 | HO.PM.IMPN ---
Subjective Subjective Date of Service: 11/14/22 Interval History: Feels better but still dyspneic with minimal acitivity still wheezy denies any fever no orther overnight events Review of Systems Review of Systems: Yes all other systems are reviewed and are negative Physical Exam Vital Signs: Vital Signs: Last Vital Signs Temp 97.5 F 11/14/22 08:00 Pulse 70 11/14/22 11:31 Resp 18 11/14/22 11:31 BP 165/99 H 11/14/22 08:00 Pulse Ox 93 11/14/22 08:00 O2 Del Method Room Air 11/14/22 08:00 O2 Flow Rate 6 11/12/22 17:21 BMI result Body Mass Index 32.5 Const: Other: Constitutional : Awake, interactive Neck : Normal inspection, Supple Cardiovascular : RRR, no JVP, no lower extremity edema Respiratory : decreased bilateral air entry, bilateral expiratory wheezes, in mild respiratory distress w activity Gastrointestinal: soft, lax, Normal bowel sounds, Non tender Skin : Warm, Dry Neurological : Alert & oriented x3, No focal deficit Objective Data Active Medications Acetaminophen (Acetaminophen 325 Mg Tablet) 650 mg PO Q6H PRN PRN Reason: Pain, Mild (Pain Scale 1-3) Last Admin: 11/13/22 13:25 Dose: 650 mg Documented By: KATERINA Albuterol/Ipratropium (Albuterol/Iprat 2.5/0.5mg 3 Ml Ampul.Neb) 3 ml INHALE RQ4H WHILE AWAKE [facility] Last Admin: 11/14/22 11:30 Dose: 3 ml Documented By: CK Albuterol/Ipratropium (Albuterol/Iprat 2.5/0.5mg 3 Ml Ampul.Neb) 3 ml INHALE ONCE PRN PRN Reason: wheezing Docusate Sodium (Docusate Sodium 100 Mg Capsule) 100 mg PO DAILY PRN PRN Reason: Constipation Enoxaparin Sodium (Enoxaparin Sodium 40 Mg/0.4 Ml Syringe) 40 mg SUBCUT Q24H [facility] Last Admin: 11/14/22 09:31 Dose: 40 mg Documented By: TYESHA Guaifenesin (Guaifenesin La 600 Mg Tab.Er.12h) 1,200 mg PO BID [facility] Last Admin: 11/14/22 11:01 Dose: 1,200 mg Documented By: TYESHA Methadone HCl (Methadone Hcl 20 Mg/2 Ml Oral.Conc) 115 mg PO DAILY [facility] Last Admin: 11/14/22 09:30 Dose: 115 mg Documented By: TYESHA Methylprednisolone Sodium Succinate (Methylprednisolone Sod Succ 40 Mg/Ml Vial) 40 mg IVPUSH Q12H [facility] Last Admin: 11/14/22 05:28 Dose: 40 mg Documented By: CHAZ Ondansetron HCl (Ondansetron Hcl 4 Mg/2 Ml Vial) 4 mg IVPUSH Q8H PRN PRN Reason: Nausea and Vomiting Pharmacy Consult (Consult Rx Perform Med Rec) 1 each MISCELLANE ONCE PRN PRN Reason: Consult order Sodium Chloride (0.9 % Sodium Chloride Flush 3 Ml Syringe) 3 ml IVFLUSH QSHIFT [facility] Last Admin: 11/14/22 09:22 Dose: 3 ml Documented By: TYESHA Labs 11/12/22 19:07 11/12/22 19:07 Assessment and Plan (1) Asthma with acute exacerbation: Status: Acute Plan Pt is a 47-year-old female with a PMH significant for?moderate persistent asthma, HIV, hep C, and opioid use disorder on methadone who presents to the ED with?shortness of breath and difficulty breathing since last night. Patient will be admitted to the hospital under observation for treatment of acute moderate persistent asthma exacerbation. Acute moderate persistent asthma exacerbation Continue Solu-Medrol 40mg q12h DuoNebs asthma is not well controlled only using an albuterol rescue inhaler, often up to four times daily will need maintenance inhaler HIV Patient has apparently not been taking her medications for over 4 months, is apparently on Tivicay, Descovy, Valtrex pending CD4 count Patient has been counseled on the importance of medication compliance Patient should follow-up with PCP Mood disorder Patient has not been taking her home meds for over 4 months, is apparently on citalopram Patient needs to follow-up with PCP to reestablish medical compliance Opioid use disorder Continue methadone Full Code Attending:?Dr. Hayes DVT Prophylaxis: Lovenox Patient will be admitted to the hospital under observation for treatment of acute moderate persistent asthma exacerbation. Time Spent With Patient Time: Total time managing care of this patient today ____ minutes. Quality Stroke Does the patient have a stroke diagnosis?: No VTE Prior VTE?: No VTE Risk Level:: Medical - moderate - high VTE Device Contraindication: Treatment Not Indicated VTE Drug Contraindication: N/A - Med Ordered
--- NOTE | 2022-11-14 13:54 | MHC.CM.PN ---
Female 47 DX Asthma exacerbation She lives alone. She is independent with all functional mobility. She is not covid vaxxed. She declined the offer to document a HCP. DP Home self care. She will arrange for transport home.
[2022-11-15 04:00] VITALS: BP 133/58; PULSE 88; RESP 14; TEMP 36.8; O2SAT 95
[2022-11-15] MEDS: methylPREDNISolone Sod Succ 40 MG/ML VIAL IVPUSH (05:10)
[2022-11-15 07:43] VITALS: BP 139/94; PULSE 69; RESP 20; TEMP 37.1; O2SAT 94
[2022-11-15] MEDS: Albuterol/Iprat 2.5/0.5MG 3 ML AMPUL.NEB INHALE ×2 (08:42→11:35)
[2022-11-15 08:43] VITALS: PULSE 69; RESP 16; O2SAT 94
[2022-11-15] MEDS: guaiFENesin LA 600 MG TAB.ER.12H 1200 MG PO (08:53)
[2022-11-15] MEDS: methADONE HCl 20 MG/2 ML ORAL.CONC 115 MG PO (08:54)
[2022-11-15] MEDS: 0.9 % Sodium Chloride Flush 3 ML SYRINGE IVFLUSH (08:59)
[2022-11-15] MEDS: Nicotine 14 MG PATCH.TD24 TRANSDERMA (09:34)
--- NOTE | 2022-11-15 10:26 | P.DS_ITS ---
DS: Providers Provider Date of Service: 11/15/22 Date of admission: 11/12/22 21:39 Primary care physician: Radha Brewer MD DS: Diagnosis Discharge Diagnosis (1) Asthma with acute exacerbation: Status: Acute DS: Summary Hospital Course Hospital Course: Admission note HPI Pt is a 47-year-old female with a PMH significant for?moderate persistent asthma, HIV, hep C, and opioid use disorder on methadone who presents to the ED with?shortness of breath and difficulty breathing since last night.? Patient states last night she experienced sudden onset shortness of breath and difficulty breathing.? Had phlegm that caught in her throat that she could not cough up.? Patient was unable to sleep during the night.? This morning her shortness of breath was worse, and when she went to go to the bathroom she panicked, could not breathe, became incontinent of urine, and the tissues going to pass out.? And thus called EMS.? Upon arrival EMS found her to be satting at 88% on RA.? Patient also notes that she is nauseous and lightheaded, but she attributes this to not having eaten all day.? Patient has a history of asthma attacks that have increased she has gotten older, now up to 1-2 times per year.? Patient also notes that she ran out of her albuterol inhaler 2 weeks ago and has not refilled her prescription.? Patient states she has been using her albuterol inhaler every day, normally at least 4 times daily.? Patient currently still smokes, but lately she has been using a vape inhaler. In the ED patient was afebrile but tachycardic to 105 and tachypneic up to 22, satting at 98% with an aerosol mask. Labs were significant for mild leukopenia of 4.3.? H&H normal. Electrolytes normal.? Renal function WNL. CXR showed no acute cardiopulmonary process.Pt was treated with dexamethasone, DuoNebs, and ondansetron. Pt will be admitted to the hospital for observation for acute moderate persistent asthma attack. Hospital course Improved slowly over the course of hospital stay with usage of nebulizers, steroids and cough medications. did no require O2 supplement and was able to ambulate on RA at the day of discharge with no reported dyspnea. Use Fluticasone inhalor twice daily Albuterol inhalor as needed Avoid smoking, nicotine patches prescribed Time Spent with Patient Time attestation: Total time managing care of this patient today ____ minutes. Discharge coordination time: Less than 30 minutes Quality: Safe Use of Opioids Does Pt have an Active Cancer Diagnosis on the Problem List?: No Quality: Stroke Does the patient have a stroke diagnosis?: No Physical Exam Vital Signs: Vital Signs: Last Vital Signs Temp 98.7 F 11/15/22 07:43 Pulse 69 11/15/22 08:43 Resp 16 11/15/22 08:43 BP 139/94 H 11/15/22 07:43 Pulse Ox 94 11/15/22 07:43 O2 Del Method Room Air 11/15/22 07:43 O2 Flow Rate 6 11/12/22 17:21 BMI result Body Mass Index 32.5 Const: Other: Constitutional : Awake, interactive Neck : Normal inspection, Supple Cardiovascular : RRR, no JVP, no lower extremity edema Respiratory : decreased bilateral air entry, resolving scattered bilateral expiratory wheezes Gastrointestinal: soft, lax, Normal bowel sounds, Non tender Skin : Warm, Dry Neurological : Alert & oriented x3, No focal deficit DS: Data Imaging Chest x-ray: Radiologist's impression: ITS Impressions Chest X-Ray 11/12/22 17:58 IMPRESSION: Normal portable chest x-ray. Discharge Plan Discharge Anticipated Discharge Date/Time: 11/15/22 10:05 Patient Disposition: Home, Self-Care Discharge Diagnosis: Asthma exacerbation Referrals: Radha Brewer MD [Primary Care Provider] - 1 Week Discharge Medications: New nicotine 14 mg/24 hr Patch 24 Hour 14 mg transdermal DAILY Qty: 30 0RF guaifenesin [Mucinex] 600 mg Tablet Extended Release 12hr 600 mg PO BID Qty: 20 0RF prednisone 20 mg tablet 40 mg PO DAILY Qty: 6 0RF fluticasone propionate 110 mcg/actuation HFA aerosol inhaler 1 puff inhalation BID Qty: 12 2RF Continued Tivicay 50 mg tablet 1 tab PO DAILY Descovy 200-25 mg tablet 1 tab PO DAILY methadone 10 mg/mL Concentrate 115 mg PO DAILY Rx Instructions: [facility]- [phone] albuterol sulfate [ProAir HFA] 90 mcg/actuation HFA aerosol inhaler 2 puff PO Q4H PRN (Reason: Shortness Of Breath) Qty: 6.7 2RF Discharge Orders: Discharge Order (Routine); Ordered 11/15/22 Ordered By: Ruth Soni Diet: Advance to usual diet Activity on Discharge: As tolerated Stand Alone Forms: Patient Portal Discharge page Care Plan Goals: Read below Health Concerns: Read below Plan of Treatment: Read below Assessment: You were admitted for treatment of asthma exacerbation. responded well to nebulizers and steroids. Use Fluticasone inhalor twice daily Albuterol inhalor as needed Avoid smoking, nicotine patches prescribed
--- NOTE | 2022-11-15 10:41 | MHC.CM.PN ---
order for home, self care. KARSTEN acknoweledge order.
[2022-11-15 11:36] VITALS: PULSE 69; RESP 16; O2SAT 94
== END 2022-11-15 12:13 | disposition home or self-care (01) | DRG 141 ==
LOC: HO.ED 21:13 → HO.EDOVER 22:02 → HO.S3 11-13 15:22
PROVIDERS: Physician Assistant; Admitting Provider Student in an Organized Health Care Education/Training Program; Emergency Provider Emergency Medicine; PCP Family Medicine; Visit Provider Student in an Organized Health Care Education/Training Program
DX: J45.41 Moderate persistent asthma with (acute) exacerbation (principal); B19.20 Unspecified viral hepatitis C without hepatic coma; F39 Unspecified mood [affective] disorder; F11.20 Opioid dependence, uncomplicated; F17.210 Nicotine dependence, cigarettes, uncomplicated; Z21 Asymptomatic human immunodeficiency virus [HIV] infection status; Z20.822 Contact with and (suspected) exposure to COVID-19; Z91.148 Patient's other noncompliance with medication regimen for other reason; Z71.6 Tobacco abuse counseling; Z79.51 Long term (current) use of inhaled steroids; Z79.899 Other long term (current) drug therapy
CPT/HCPCS: 36415; 71045; 80053; 83735; 83880; 85025; 87635; 94640; 99221; 99285; J1100; J1650; J2405; J2920

== ENCOUNTER 2023-08-06 13:51 | Outpatient (REF) | payer MEDICAID, SELFPAY ==
[2023-08-06 16:06] LABS: MANUAL DIFF FLAG NO
[2023-08-06 16:19] LABS: Basophils Percent Auto 1.1 % (0-2); Eosinophils Absolute Auto 0.3 X10*3/uL (0.0-0.4); Eosinophils Percent Auto 9.3 % (0-4); Hematocrit 41.6 % (37.0-47.0); Hemoglobin 14.3 g/dl (12.0-16.0); Imm Gran Abs Auto 0.01 X10*3/uL (0.00-0.03); Imm Gran Pct Auto 0.4 % (0.0-0.4); Lymphocytes Absolute Auto 0.8 X10*3/uL (1.2-4.9); Lymphocytes Percent Auto 27.5 % (20-40); Mean Corpuscular HGB Conc 34.4 g/dl (31.0-35.0); Mean Corpuscular Hemoglobin 29.7 pg (27.0-33.0); Mean Corpuscular Volume 86.3 fL (80.0-98.0); Monocytes Absolute Auto 0.2 X10*3/uL (0.1-1.2); Monocytes Percent Auto 7.9 % (2-11); Neutrophils Absolute Auto 1.5 x10*3/uL (2.0-8.3); Neutrophils Percent Auto 53.8 % (45-73); Platelet Count 122 X10*3/uL (160-400); Red Blood Count 4.82 X10*6/uL (4.20-5.50); White Blood Count 2.8 X10*3/uL (4.8-10.8)
[2023-08-06 16:23] LABS: INTERNATIONAL NORM RATIO 0.9 (0.9-1.1); Prothrombin Time 10.8 SEC (11.1-13.3)
[2023-08-06 16:28] LABS: Alanine Aminotransferase 37 U/L (0-31); Albumin Level 3.8 g/dL (3.5-5.0); Alkaline Phosphatase 60 U/L (39-117); Anion Gap 10 (12-20); Aspartate Amino Transferase 52 U/L (5-31); Bilirubin Total 0.5 mg/dL (0.0-1.0); Blood Urea Nitrogen 8 mg/dL (9-16); Calcium 9.1 mg/dL (8.4-10.2); Carbon Dioxide 28 mmol/L (22-29); Chloride 104 mmol/L (96-108); Cholesterol 154 mg/dL (<200); Estimated Glomerular Filt Rate > 60; Glucose Random 72 mg/dL (60-115); HDL Cholesterol 34 mg/dL (>40); LDL Cholesterol Calculated 80 mg/dL (<100); Sodium 138 mmol/L (135-145); Total Protein 8.3 g/dL (6.5-8.0); Triglycerides 202 mg/dL (<150)
[2023-08-06 16:45] LABS: Reflex LDLD? No
[2023-08-07 12:29] LABS: Absolute CD3 Count 530 cells/uL (840-3060); Absolute CD4 Count 142 cells/uL (490-1740); Absolute CD8 Count 379 cells/uL (180-1170); Absolute Lymphocytes 751 cells/uL (850-3900); CD4 CD8 Ratio 0.38 (0.86-5.00); Percent CD3 Cells 71 % (57-85); Percent CD4 Cells 19 % (30-61); Percent CD8 Cells 51 % (12-42)
[2023-08-07 18:28] LABS: RPR Rapid Plasma Reagin NON-REACTIVE (NON-REACTIVE)
[2023-08-07 18:53] LABS: HIV RNA PCR Qn Copies 312000 copies/mL (NOT DETECTED); HIV RNA PCR Qn Log Copies 5.49 (NOT DETECTED)
[2023-08-08 20:24] LABS: HCV Log PCR 6.83 Log IU/mL (NOT DETECTED)
[2023-08-09 17:09] LABS: TS Negative Control Passed; TS Panel A 0; TS Panel B 0; TS Positive Control Passed; TSpotTB Negative (Negative)
[2023-08-12 16:08] LABS: FIB-ALT 29 U/L (6-29); FIB-Alpha-2-Macroglobulin 311 mg/dL (106-279); FIB-Apolipoprotein A1 127 mg/dL (101-198); FIB-GGT 34 U/L (3-55); FIB-Haptoglobin 117 mg/dL (43-212); FIB-Total Bilirubin 0.4 mg/dL (0.2-1.2); Liver Fibrosis Score 0.37; Liver Fibrosis Stage F1-F2; Nec Inflam Act Grade A0; Nec Inflam Act Score 0.15
[2023-08-15 19:13] LABS: HIV Genotype DETECTED
[2023-08-15 19:28] LABS: Date Viral Load Collected NG; Dolutegravir Resistance NOT PREDICTED; HIV-1 Bictegravir Resistance NOT PREDICTED; HIV-1 Cabotegravir Resistance NOT PREDICTED; HIV-1 Elvitegravir Resistance NOT PREDICTED; Raltegravir Resistance NOT PREDICTED; Value of Last HIV Viral Load NG copies/mL
== END 2023-08-06 13:52 | disposition home or self-care (01) ==
LOC: HO.HHCL 13:51
PROVIDERS: Visit Provider Internal Medicine
DX: Z11.1 Encounter for screening for respiratory tuberculosis (principal); B20 Human immunodeficiency virus [HIV] disease
CPT/HCPCS: 36415; 80053; 80061; 81596; 85025; 85610; 86359; 86360; 86481; 86592; 87522; 87536; 87900; 87901; 87906

== ENCOUNTER 2023-09-22 07:22 | Inpatient (IN) | payer MEDICAID, SELFPAY ==
[2023-09-22] VITALS (9 sets, daily range): BP systolic 114–166; BP diastolic 59–88; PULSE 78–106; RESP 17–22; TEMP 36.5–37.2; O2SAT 88–97; BMI 30.5
--- NOTE | ~2023-09-22 | XR_ITS ---
EXAMINATION: XR CHEST CLINICAL INFORMATION: Cough and fever COMPARISON: None available. TECHNIQUE: Frontal view of the chest was obtained. FINDINGS: No significant abnormality is noted involving the heart, lungs, mediastinum, bony thorax or soft tissues. XR/XR chest 1V IMPRESSION: Unremarkable examination.
--- NOTE | ~2023-09-22 | CT_ITS ---
EXAMINATION: CT ANGIOGRAM OF THE CHEST WITH AND WITHOUT CONTRAST (CT PULMONARY ANGIOGRAM FOR PE) CLINICAL INFORMATION: Reason for Exam r/o PE, sob, hypoxia COMPARISON: Chest radiograph 09/22/2023 TECHNIQUE: Prior to contrast administration, noncontrast localization images were obtained. Subsequently, multidetector volumetric imaging was performed from the thoracic inlet to below the diaphragms following the administration of 65 mL Omnipaque 350 intravenous contrast. No contrast reaction reported Sagittal, coronal, and MIP oblique sagittal reformatted images were obtained on the CT workstation, uploaded to PACS, and reviewed. This CT examination was performed using dose optimization techniques as appropriate, variously including the following: *Automated exposure control *Adjustment of mA and/or kV according to patient size (this includes techniques or standardized protocols for targeted exams where dose is matched to indication/reason for exam; i.e. extremities or head) *Use of iterative reconstruction technique Total exam dose-length product 401 mGy-cm FINDINGS: QUALITY OF STUDY/CONTRAST BOLUS: Satisfactory. PULMONARY ARTERIES: No pulmonary emboli. THORACIC AORTA: No aneurysm. LUNG: No focal consolidation, worrisome nodules or masses. Mild emphysematous changes are present along with mild diffuse bronchial wall thickening. Bandlike atelectasis is present in the right lateral costophrenic sulcus. PLEURA: No pleural effusion or pneumothorax. MEDIASTINUM: Normal heart size. No pericardial effusion. No hilar or mediastinal lymphadenopathy. No evidence of septal bowing or right heart strain. CORONARY ARTERY CALCIFICATION: None visualized on this study. CHEST WALL/AXILLA: No axillary or internal mammary lymphadenopathy. OSSEOUS STRUCTURES: No acute or suspicious osseous abnormality. UPPER ABDOMEN: Spleen is enlarged measuring at least 15 cm in greatest length. On the abdominal ultrasound from 02/16/2019, the spleen measured 12.3 cm. No reflux of contrast into the hepatic veins to suggest elevated right heart pressures. CT/CT angio chest PE protocol IMPRESSION: 1. No evidence of pulmonary emboli. 2. Mild emphysema and bronchial wall thickening. 3. Splenomegaly, new. VTE: negative.
--- NOTE | 2023-09-22 07:54 | ED.ASTHMA ---
HPI - Asthma General Chief Complaint: Dyspnea Stated Complaint: SOB ON DUO NEB Time Seen by Provider: 09/22/23 07:33 Source: patient and old records reviewed Mode of arrival: EMS Limitations: no limitations History of Present Illness HPI Narrative: 48 yo female with PMH of HIV on medications including bactrim, hep C, asthma no prior intubations, opiate use disorder on methadone goes to [facility] clinic here with c/o not feeling well x 2 days with temp of 100.6, cough, difficulty breathing. States her aunt is also ill and admitted to the hospital with the flu. She tried nebs without relief. The patient is not vaccinated against the flu and covid. Found by EMS 88% RA not on home O2 given jalil SAMPSON complaint: asthma attack , wheezing and other (fevers/chills) Onset (ago): day(s) (2) Severity: moderate Context: recent URI Associated symptoms: productive cough and fever Asthma History: childhood onset Treatments Prior to Arrival: inhaled bronchodilator Related Data Home Medications Medication Instructions Recorded Confirmed dolutegravir 50 mg tablet (Tivicay) 1 tab PO DAILY 10/30/21 09/22/23 emtricitabine 200 mg-tenofovir 1 tab PO DAILY 10/30/21 09/22/23 alafenamide fumarate 25 mg tablet (Descovy) methadone 10 mg/mL oral concentrate 115 mg PO DAILY 10/30/21 11/12/22 sulfamethoxazole 800 1 tab PO DAILY 09/22/23 09/22/23 mg-trimethoprim 160 mg tablet Previous Rx's Medication Instructions Recorded albuterol sulfate 90 mcg/actuation 2 puff PO Q4H PRN Shortness Of 11/15/22 aerosol inhaler (ProAir HFA) Breath #6.7 grams Allergies Allergy/AdvReac Type Severity Reaction Status Date / Time No Known Allergies Allergy Verified 07/13/23 15:19 Review of Systems Review of Systems: Constitutional : pos Fever, pos Chills ENT/Mouth : No Hoarseness, No sore throat, No Rhinorrhea Eyes: No Redness, No Discharge, No Vision Changes Cardiovascular : No Chest Pain, positive SOB, positive Dyspnea on Exertion, No Edema Respiratory : positive Cough, No Sputum, positive Wheezing, Gastrointestinal : No Nausea, No Vomiting, No Diarrhea, No abdominal Pain Genitourinary : No Dysuria, No Hematuria Musculoskeletal : No joint pain, No Myalgias Skin : No rash Neuro : No Weakness, No Numbness, No Headache Psych : No anxiety, depression All other systems reviewed and are negative PMFSH Past Medical History Attestation statement: The following information was validated with the patient. 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, chronic HIV (human immunodeficiency virus infection) Social History Social History Household Members: Significant Other Housing: House Do you presently have visiting nurse or other home services: No Alcohol intake: never Patient Tobacco Use Status: Current everyday Tobacco user Tobacco use type: Cigarette Substance Use Type: Marijuana Advance Directives: No service: No Current occupational status: unemployed Physical Exam Vital Signs: Vital Signs: Last Vital Signs Temp 97.7 F 09/22/23 12:37 Pulse 94 09/22/23 14:00 Resp 20 09/22/23 14:00 BP 118/59 L 09/22/23 12:37 Pulse Ox 96 09/22/23 12:37 O2 Del Method Nasal Cannula 09/22/23 12:37 O2 Flow Rate 3 09/22/23 12:37 BMI result Body Mass Index 30.5 Appearance: Alert. Oriented X3. Mild acute distress. Eyes: Pupils equal, round and reactive to light. ENT: Pharynx normal. Neck: Normal inspection. Neck supple. CVS: tachycardic heart rate and rhythm. Pulses normal. Respiratory: Mild respiratory distress- retractions and tachypnea. Breath sounds coarse and diminished with diffuse end exp wheezes Abdomen: Soft and non-tender. Skin: Skin warm and dry. Normal skin color. Normal skin turgor. Extremities: No lower extremity edema. Neuro: Oriented X 3. No motor deficit. No sensory deficit. Medications Administered Generic Name Dose Route Start Last Admin Trade Name Freq PRN Reason Stop Dose Admin Albuterol/Ipratropium 3 ml 09/22/23 12:00 09/22/23 15:26 Albuterol/Iprat 2.5/0.5mg 3 Ml Ampul.Neb INHALE Not Given RQ4H WHILE AWAKE NAT Doxycycline Hyclate 100 mg/ 250 mls @ 166.67 mls/hr 09/22/23 12:00 09/22/23 12:44 Sodium Chloride IV 166.67 mls/hr Q12H NAT Administration Discontinued Medications Generic Name Dose Route Start Last Admin Trade Name Juan Francisco PRN Reason Stop Dose Admin Acetaminophen 650 mg 09/22/23 07:45 09/22/23 08:46 Acetaminophen 325 Mg Tablet PO 09/22/23 07:46 650 mg ONCE ONE Administration Albuterol Sulfate 5 mg/ 0 mg 09/22/23 07:44 09/22/23 07:55 Albuterol/Ipratropium 3 ml INHALE 09/22/23 07:45 1 each ONCE ONE Administration Ceftriaxone Sodium 1 gm/ 50 mls @ 100 mls/hr 09/22/23 07:35 09/22/23 09:51 Sodium Chloride IV 09/22/23 08:04 Infused ONCE ONE Infusion Magnesium Sulfate 2 gm in 50 mls @ 25 mls/hr 09/22/23 09:26 09/22/23 12:33 Magnesium Sulfate/H2o IV 09/22/23 11:25 Infused ONCE ONE Infusion Sodium Chloride 1,000 mls @ 999 mls/hr 09/22/23 09:30 09/22/23 12:33 Ns IV 09/22/23 10:30 Infused .Q1H1M NAT Infusion Sodium Chloride 500 mls @ 500 mls/hr 09/22/23 11:30 09/22/23 14:10 Ns IV 09/22/23 12:29 Infused .Q1H NAT Infusion Methadone HCl 115 mg 09/22/23 10:00 09/22/23 10:13 Methadone Hcl 20 Mg/2 Ml Oral.Conc PO 09/22/23 10:01 115 mg ONCE ONE Administration Methylprednisolone Sodium Succinate 60 mg 09/22/23 07:35 09/22/23 08:46 Methylprednisolone Sod Succ 125 Mg/2 Ml Vial IVPUSH 09/22/23 07:36 60 mg ONCE ONE Administration Medical Decision Making Medical Decision Making MDM Narrative: 48 yo female with PMH of HIV on medications including bactrim, hep C, asthma no prior intubations, opiate use disorder on methadone goes to [facility] clinic here with fevers and chills with flu exposure at this time she is hypoxic. Will need basic labs, cultures, lactic acid, CXR, IV steroids, viral panel and O2 supplementation. Suspect bronchitis, pneumonia, asthma, flu. Differential Diagnosis Differential Diagnoses: The differential diagnosis associated with the presentation includes flu, asthma, pneumonia, bronchitis Admission/Observation Consideration of admission/observation: Escalation of care including admission/observation considered RA trial 89% will admit for further management Consult Healthcare Provider Management of the patient was discussed with: Hospitalist (will admit) Lab Data MDM Lab Attestation statement: I reviewed the patient's lab results. 09/22/23 08:31 09/22/23 08:31 Labs: Lab Results 09/22/23 09/22/23 09/22/23 Range/Units 08:31 08:32 10:56 WBC 3.4 L (4.8-10.8) X10*3/uL RBC 4.81 (4.20-5.50) X10*6/uL Hgb 14.3 (12.0-16.0) g/dl Hct 41.8 (37.0-47.0) % MCV 86.9 (80.0-98.0) fL MCH 29.7 (27.0-33.0) pg MCHC 34.2 (31.0-35.0) g/dl RDW 13.3 (11.0-16.0) % Plt Count 80 L D (160-400) X10*3/uL MPV 10.6 (9.4-12.3) fL Immature Gran % (Auto) 0.6 H (0.0-0.4) % Neut % (Auto) 83.0 H (45-73) % Lymph % (Auto) 10.4 L (20-40) % [place] % (Auto) 6.0 (2-11) % Eos % (Auto) 0.0 (0-4) % Baso % (Auto) 0.0 (0-2) % Lymph # (Auto) 0.4 L (1.2-4.9) X10*3/uL [place] # (Auto) 0.2 (0.1-1.2) X10*3/uL Eos # (Auto) 0.0 (0.0-0.4) X10*3/uL Baso # (Auto) 0.0 (0.0-0.2) X10*3/uL Abs Immat Gran (auto) 0.02 (0.00-0.03) X10*3/uL Absolute Neuts (auto) 2.8 (2.0-8.3) x10*3/uL Absolute Nucleated RBC 0.000 (0.0-0.012) X10*3/uL Nucleated RBC % (auto) 0.0 (0.0-0.2) /100WBC Sodium 137 (135-145) mmol/L Potassium 3.6 (3.3-5.1) mmol/L Chloride 102 (96-108) mmol/L Carbon Dioxide 24 (22-29) mmol/L Anion Gap 15 (12-20) BUN 10 (9-16) mg/dL Creatinine 0.79 (0.5-1.4) mg/dL Estim Creat Clear Calc 105.0 Estimated GFR > 60 Random Glucose 123 H (60-115) mg/dL Lactic Acid 2.7 H* (0.5-2.0) mmol/L Lactic Acid F/U @ 2Hr 2.7 H* (0.5-2.0) mmol/L Calcium 9.0 (8.4-10.2) mg/dL Magnesium 1.5 L (1.6-2.6) mg/dL Total Bilirubin 0.5 (0.0-1.0) mg/dL Direct Bilirubin 0.2 (0.0-0.5) mg/dL AST 46 H (5-31) U/L ALT 29 (0-31) U/L Alkaline Phosphatase 51 (39-117) U/L Total Protein 8.7 H (6.5-8.0) g/dL Albumin 3.9 (3.5-5.0) g/dL Influenza Type A (PCR) NEGATIVE (Negative) Influenza Type B (PCR) NEGATIVE (Negative) RSV RNA Qual (PCR) NEGATIVE (Negative) SARS-CoV-2 RNA (RT-PCR) NEGATIVE (Negative) Independent Interpretation I performed an independent interpretation of an: Plain X-Ray (no pneumonia) Radiology Impression Discussion of test interpretation with radiology: I have reviewed the radiologist's reading. Independent Historian Clinical information obtained from an independent historian. History obtained from or confirmed by: EMS External Record Review External record reviewed: Inpatient record Critical Care Time Critical Care Time Critical Care Time: Yes Total Critical Care Time: 45 Attestation: repeat nebs, IV magnesium, O2 supplementation for hypoxia, admission, review of records I attest to this time spent taking care of the patient Discharge Plan Discharge Clinical Impression: Hypomagnesemia, Hypoxia, Acute upper respiratory infection Asthma with exacerbation Qualifiers: Asthma severity: moderate Asthma persistence: persistent Qualified Code(s): J45.41 - Moderate persistent asthma with (acute) exacerbation Patient Disposition: Admitted As Inpatient
[2023-09-22] MEDS: Albuterol Sulfate 5 MG, Albuterol/Iprat 2.5/0.5MG 3 ML 3 ML INHALE (07:55)
--- NOTE | 2023-09-22 08:11 | PC.NURSE ---
attempted IV x2, able to obtain first set of cultures at this time. patient difficult stick
[2023-09-22 08:39] LABS: MANUAL DIFF FLAG NO
[2023-09-22 08:44] LABS: Hematocrit 41.8 % (37.0-47.0); Hemoglobin 14.3 g/dl (12.0-16.0); Imm Gran Abs Auto 0.02 X10*3/uL (0.00-0.03); Imm Gran Pct Auto 0.6 % (0.0-0.4); Lymphocytes Absolute Auto 0.4 X10*3/uL (1.2-4.9); Lymphocytes Percent Auto 10.4 % (20-40); Mean Corpuscular HGB Conc 34.2 g/dl (31.0-35.0); Mean Corpuscular Hemoglobin 29.7 pg (27.0-33.0); Mean Corpuscular Volume 86.9 fL (80.0-98.0); Mean Platelet Volume 10.6 fL (9.4-12.3); Monocytes Absolute Auto 0.2 X10*3/uL (0.1-1.2); Neutrophils Absolute Auto 2.8 x10*3/uL (2.0-8.3); Red Blood Count 4.81 X10*6/uL (4.20-5.50); Red Cell Distribution Width 13.3 % (11.0-16.0); White Blood Count 3.4 X10*3/uL (4.8-10.8)
[2023-09-22] MEDS: Acetaminophen 325 MG TABLET 650 MG PO ×2 (08:46→23:11)
[2023-09-22] MEDS: methylPREDNISolone Sod Succ 125 MG/2 ML VIAL 60 MG IVPUSH (08:46)
[2023-09-22] MEDS: cefTRIAXone sodium 1 GM in 0.9 % Sodium Chloride 50 ML IV (08:46)
[2023-09-22 08:51] LABS: Platelet Count 80 X10*3/uL (160-400)
--- NOTE | 2023-09-22 08:51 | PC.NURSE ---
IV established, medicated per the MAR. swab obtained.
--- NOTE | 2023-09-22 09:06 | PC.NURSE ---
confirmed methadone dose of 115mg at [facility] with dang. form faxed to pharmacy
[2023-09-22 09:20] LABS: Alanine Aminotransferase 29 U/L (0-31); Albumin Level 3.9 g/dL (3.5-5.0); Alkaline Phosphatase 51 U/L (39-117); Anion Gap 15 (12-20); Aspartate Amino Transferase 46 U/L (5-31); Bilirubin Direct 0.2 mg/dL (0.0-0.5); Bilirubin Total 0.5 mg/dL (0.0-1.0); Blood Urea Nitrogen 10 mg/dL (9-16); Carbon Dioxide 24 mmol/L (22-29); Chloride 102 mmol/L (96-108); Estimated Glomerular Filt Rate > 60; Glucose Random 123 mg/dL (60-115); Magnesium 1.5 mg/dL (1.6-2.6); Potassium 3.6 mmol/L (3.3-5.1); Sodium 137 mmol/L (135-145); Total Protein 8.7 g/dL (6.5-8.0)
[2023-09-22 09:26] LABS: Lactic Acid 2.7 mmol/L (0.5-2.0)
[2023-09-22 09:39] LABS: Influenza A PCR NEGATIVE (Negative); Influenza B PCR NEGATIVE (Negative); Resp Syncy Virus RNA Qual PCR NEGATIVE (Negative); SARS COV2 PCR INHOUSE NEGATIVE (Negative)
--- NOTE | 2023-09-22 09:55 | HE.PHANOTE ---
Methadone verification Methadone verified: 115mg provided by [facility], last dose 09/15/23, 6 take home bottles from [facility].
[2023-09-22] MEDS: Magnesium Sulfate/H2O 2 GM/50 ML PIGGYBACK IV (10:10)
[2023-09-22] MEDS: methADONE HCl 20 MG/2 ML ORAL.CONC 115 MG PO (10:13)
[2023-09-22] MEDS: 0.9 % Sodium Chloride 1,000 ML 999 ML IV (10:13)
--- NOTE | 2023-09-22 10:29 | PC.NURSE ---
increased oxygen from 2L to 3L now maintaining 93-96%. medicated per the MAR, offering no complaints with call snowden in reach
[2023-09-22 10:36] LABS: Reflex Lactate? Lactic Acid Added
[2023-09-22 11:19] LABS: ~Lactic Acid-LAB USE ONLY 2.7 mmol/L (0.5-2.0)
--- NOTE | 2023-09-22 11:49 | P.HPHOSP_ITS ---
History of Present Illness Date of Service: 09/22/23 Attending physician on admission: Ruth Soni Chief Complaint: sob, cough 48-year-old female with history of HIV recently restarted on Tivicay and Biktarvy as well as Bactrim 1 month ago, history of untreated hepatitis-C, mild persistent asthma, genital herpes, who is a current 2 cigarette per day smoker and ongoing cocaine abuser with history of IV drug abuse presents to the ED earlier today for evaluation of shortness of breath, wheezing, and productive cough ongoing for 2 days. She has also had fevers up to 100.6 at home as well as chills. Reports her aunt with whom she lives and daughter are also sick with similar symptoms and her aunt is also admitted at our facility currently. Has reported decreased appetite. No sore throat, congestion, abdominal pain, nausea, vomiting, diarrhea, urinary symptoms, lightheadedness, chest pain. Per EMS, patient was found at 88% on room air and does not use home O2. On arrival, patient tachycardic to 106, intermittently tachypneic to 22 respirations. Despite treatments with IV Solu-Medrol, DuoNebs, magnesium, patient remains hypoxic to 89% on room air now maintaining oximetry 91% on 2 L supplemental O2. She is leukopenic at 3.4, thrombocytopenic to ED. Renal function electrolyte levels normal. Initial lactic acid 2.7, repeat 2.7. Magnesium 1.5, negative for influenza, RSV. CXR unremarkable. In the ED, has received Tylenol, DuoNeb, 2 g IV magnesium, 1 g Rocephin, 60 mg IV methylprednisolone as well as 1 L IV fluids and methadone. She will be admitted for further management of acute asthma exacerbation with acute hypoxemic respiratory failure. Review of Systems 2 Review of Systems: General: No fevers, malaise, unintentional weight loss HEENT: No blurred vision, diplopia. No sore throat, nasal congestion, rhinorrhea, sinus pain, ear pain Cardiovascular: No chest pain, palpitations, or leg edema Respiratory: +shortness of breath, +wheezing, +cough GI: No abdominal pain, nausea, vomiting, diarrhea, constipation, melena, hematochezia : No dysuria, hematuria, increased urinary frequency, decreased urinary output MSK: No myalgia, back pain Neuro: No headaches, weakness, paresthesias Skin: No rashes or lesions [facility] Medical History Substance use disorder HIV (human immunodeficiency virus infection) Hepatitis C Substance abuse Asthma Genital herpes Hep C w/o coma, chronic HIV (human immunodeficiency virus infection) Social History Household Members: Significant Other Housing: House Do you presently have visiting nurse or other home services: No Alcohol intake: never Patient Tobacco Use Status: Current everyday Tobacco user Tobacco use type: Cigarette Substance Use Type: Marijuana Advance Directives: No service: No Current occupational status: unemployed Meds Allergies Allergy/AdvReac Type Severity Reaction Status Date / Time No Known Allergies Allergy Verified 07/13/23 15:19 Active Medications: Current Medications Sodium Chloride (Ns) 500 mls @ 500 mls/hr IV .Q1H NAT Stop: 09/22/23 12:29 Home Medications Medication Instructions Recorded Confirmed Last Taken Type dolutegravir 50 mg tablet (Tivicay) 1 tab PO DAILY 10/30/21 10/30/21 10/29/21 History emtricitabine 200 mg-tenofovir 1 tab PO DAILY 10/30/21 10/30/21 10/29/21 History alafenamide fumarate 25 mg tablet (Descovy) methadone 10 mg/mL oral concentrate 115 mg PO DAILY 10/30/21 11/12/22 11/12/22 History Physical Exam 2 Vital Signs and Narrative: Vital Signs: Last Vital Signs Temp 97.8 F 09/22/23 10:09 Pulse 105 H 09/22/23 10:09 Resp 20 09/22/23 10:09 BP 137/73 09/22/23 10:09 Pulse Ox 91 L 09/22/23 10:09 O2 Del Method Nasal Cannula 09/22/23 10:09 O2 Flow Rate 2 09/22/23 10:09 BMI result Body Mass Index 30.5 Constitutional - Awake and Alert, No apparent distress Eyes - PERRLA, EOMI Cardiovascular - S1S2, RRR, No edema Respiratory - Normal lung expansion, Normal respiratory effort, No respiratory distress on 2L supplemental O2 with diminished lung sounds and inspiratory and expiratory wheezing Gastrointestinal - NT / ND; +BS; No rebound or guarding Extremities - no calf tenderness bilaterally, no swelling Skin - Warm/Dry Neurological - Alert & oriented x3 Psychological - Appropriate affect Results Labs 09/22/23 08:31 09/22/23 08:31 Labs: Laboratory Results - last 24 hr 09/22/23 09/22/23 09/22/23 08:31 08:32 10:56 MCV 86.9 MCH 29.7 MCHC 34.2 RDW 13.3 Plt Count 80 L D MPV 10.6 Immature Gran % (Auto) 0.6 H Neut % (Auto) 83.0 H Lymph % (Auto) 10.4 L [place] % (Auto) 6.0 Eos % (Auto) 0.0 Baso % (Auto) 0.0 Lymph # (Auto) 0.4 L [place] # (Auto) 0.2 Eos # (Auto) 0.0 Baso # (Auto) 0.0 Abs Immat Gran (auto) 0.02 Absolute Neuts (auto) 2.8 Absolute Nucleated RBC 0.000 Nucleated RBC % (auto) 0.0 Anion Gap 15 Estim Creat Clear Calc 105.0 Estimated GFR > 60 Random Glucose 123 H Lactic Acid 2.7 H* Lactic Acid F/U @ 2Hr 2.7 H* Calcium 9.0 Magnesium 1.5 L Total Bilirubin 0.5 Direct Bilirubin 0.2 AST 46 H ALT 29 Alkaline Phosphatase 51 Total Protein 8.7 H Albumin 3.9 Influenza Type A (PCR) NEGATIVE Influenza Type B (PCR) NEGATIVE RSV RNA Qual (PCR) NEGATIVE SARS-CoV-2 RNA (RT-PCR) NEGATIVE Imaging Radiologist's Impressions: Impressions Chest X-Ray 09/22/23 08:14 IMPRESSION: Unremarkable examination. Assessment and Plan (1) Acute upper respiratory infection: Status: Acute (2) Hypoxia: Status: Acute (3) Asthma with exacerbation: Qualifiers: Asthma persistence: persistent Asthma severity: moderate Qualified Code(s): J45.41 - Moderate persistent asthma with (acute) exacerbation Status: Acute Plan 48-year-old female with history of HIV recently restarted on Tivicay and Biktarvy as well as Bactrim 1 month ago, history of untreated hepatitis-C, mild persistent asthma, genital herpes, who is a current 2 cigarette per day smoker and ongoing cocaine abuser with history of IV drug abuse admitted for further management of acute asthma exacerbation with acute hypoxemic respiratory failure #Acute asthma/COPD exacerbation with acute hypoxemic respiratory failure -has known history of asthma but suspect coinciding COPD given productive cough and smoking history -CXR unremarkable. Leukopenia due to immunocompromised status and tachycardia/lactic acidosis due to albuterol. Not sepsis/severe sepsis -IV methylprednisolone 40 mg b.i.d. -DuoNebs q.4h while awake -albuterol p.r.n. -doxycycline b.i.d. -check viral respiratory panel -continue supplemental O2 to maintain oximetry 92% or greater # HIV -recently restarted on Descovy and Biktarvy 1 month ago. Continue -continue Bactrim for PCP prophylaxis -ID consult -HIV viral load pending #Chronic thrombocytopenia -likely due to liver disease/Hepatitis c\ # chronic hepatitis-C -outpatient follow-up # cigarette smoking -declines NRT -cessation advised #Ongoing cocaine abuse with opioid dependence on methadone -continue methadone -addiction medicine consult dvt prophylaxis- scps full code pt requires inpt stay at least 2 midnights for management of asthma/copd exacerbation with acute hypoxemic respiratory failure in immunocompromised patient requiring iv steroids, nebulizer tx, expert consulation, and close monitoring of respiratory status Quality Stroke Does the patient have a stroke diagnosis?: No VTE Prior VTE?: No VTE Risk Level:: Medical - moderate - high VTE Device Contraindication: Treatment Not Indicated VTE Drug Contraindication: N/A - Med Ordered
[2023-09-22] MEDS: 0.9 % Sodium Chloride 500 ML IV (12:44)
[2023-09-22] MEDS: Doxycycline Hyclate 100 MG in 0.9 % Sodium Chloride 250 ML 166.67 MG IV (12:44)
[2023-09-22 12:59] LABS: Reflex Lactate? 2 Y
--- NOTE | 2023-09-22 13:43 | PHA.MEDREC ---
Pharmacy Consult ? Medication Reconciliation Pharmacy has completed the medication reconciliation. Spoke to patient and confirm medication list. Patient gets take home bottle of methadone (115 mg, 7 day worth) from [facility].
[2023-09-22 14:15] LABS: ~Lactic Acid-LAB USE ONLY 1.3 mmol/L (0.5-2.0)
[2023-09-22] MEDS: Albuterol/Iprat 2.5/0.5MG 3 ML AMPUL.NEB INHALE ×2 (14:17→19:05)
--- NOTE | 2023-09-22 15:21 | W.PM.IDCN ---
History of Present Illness Data of Consult Service Date: 09/22/23 Requesting physician: Ruth Soni Primary Care Provider: Radha Brewer MD HPI Reason for consult: shortness of breath,HIV, Hepatitis C She presents with two days worsening shortness of breath after visiting her aunt in hospital here with influenza she says. Her 15 year old daughter is not ill. She took inhaler frequently last night and woke up 5 am with near complete inability to breath. She didnt get influenza or COVID vaccines. She is supposed to take tivicay and Descovy by report but has viral load 08/06 of 316,000 and CD4 count down to 142. She also has Hepatitis C viral load 6.8 million. She has unremakable AP CXR. Review of Systems Review of Systems: Yes all other systems are reviewed and are negative Cardiovascular: Cardiovascular: Reports dyspnea Respiratory: Respiratory: Reports dyspnea PMF Past Medical History Medical History (Updated 09/22/23 @ 15:30 by Alexandrea Sweet MD) Substance use disorder HIV (human immunodeficiency virus infection) Hepatitis C Substance abuse Asthma Genital herpes Hep C w/o coma, chronic HIV (human immunodeficiency virus infection) Social History Social History Household Members: Significant Other Housing: House Do you presently have visiting nurse or other home services: No Alcohol intake: never Patient Tobacco Use Status: Current everyday Tobacco user Tobacco use type: Cigarette Substance Use Type: Marijuana Advance Directives: No service: No Current occupational status: unemployed Meds Allergies Allergy/AdvReac Type Severity Reaction Status Date / Time No Known Allergies Allergy Verified 07/13/23 15:19 Active Medications: Current Medications Acetaminophen (Acetaminophen 325 Mg Tablet) 650 mg PO Q6H PRN PRN Reason: Pain, Mild (Pain Scale 1-3) Albuterol Sulfate (Albuterol Sulfate (0.083%) 2.5 Mg/3 Ml Vial.Neb) 2.5 mg INHALE Q2H PRN PRN Reason: Shortness of Breath/Wheezing Albuterol/Ipratropium (Albuterol/Iprat 2.5/0.5mg 3 Ml Ampul.Neb) 3 ml INHALE RQ4H WHILE AWAKE NAT Last Admin: 09/22/23 14:17 Dose: 3 ml Doxycycline Hyclate 100 mg/ (Sodium Chloride) 250 mls @ 166.67 mls/hr IV Q12H [facility] Last Admin: 09/22/23 12:44 Dose: 166.67 mls/hr Methylprednisolone Sodium Succinate (Methylprednisolone Sod Succ 40 Mg/Ml Vial) 40 mg IVPUSH Q12H [facility] Ondansetron HCl (Ondansetron Hcl 4 Mg/2 Ml Vial) 4 mg IVPUSH Q8H PRN PRN Reason: Nausea and Vomiting Senna (Sennosides 8.6 Mg Tablet) 17.2 mg PO BEDTIME PRN PRN Reason: Constipation Sodium Chloride (0.9 % Sodium Chloride Flush 3 Ml Syringe) 3 ml IVFLUSH QSHIFT [facility] Home Medications Medication Instructions Recorded Confirmed Last Taken Type dolutegravir 50 mg tablet (Tivicay) 1 tab PO DAILY 10/30/21 09/22/23 09/21/23 History emtricitabine 200 mg-tenofovir 1 tab PO DAILY 10/30/21 09/22/23 09/21/23 History alafenamide fumarate 25 mg tablet (Descovy) methadone 10 mg/mL oral concentrate 115 mg PO DAILY 10/30/21 11/12/22 11/12/22 History sulfamethoxazole 800 1 tab PO DAILY 09/22/23 09/22/23 09/21/23 History mg-trimethoprim 160 mg tablet Physical Exam Vital Signs: Vital Signs: Last Vital Signs Temp 97.7 F 09/22/23 12:37 Pulse 94 09/22/23 14:00 Resp 20 09/22/23 14:00 BP 118/59 L 09/22/23 12:37 Pulse Ox 96 09/22/23 12:37 O2 Del Method Nasal Cannula 09/22/23 12:37 O2 Flow Rate 3 09/22/23 12:37 BMI result Body Mass Index 30.5 Const: General: cooperative and ill appearing HEENT: Head: Yes normal to inspection Face and sinus: Yes normal facial exam Mouth: Normal oral and palatal mucosa present Teeth and gingiva: dentition normal Eyes: General: appearance normal, both eyes and all related structures Pupils: Equal, round and reactive pupils present Resp: Effort & Inspection: normal respiratory effort Cardio: Rate: regular rate Rhythm: regular rhythm GI: Palpation (GI): Soft to palpation and nontender : General: Yes no CVA tenderness Back/Spine/Pelvis: Back: no CVA tenderness Skin: General skin exam: no rashes or lesions noted Neuro: General: moves all extremities Cranial nerves: Yes Equal, round and reactive pupils present Extrem: General: Yes normal to inspection Psych: Appearance: grossly normal Results Labs 09/22/23 08:31 09/22/23 08:31 Labs: Short CBC 09/22/23 Range/Units 08:31 WBC 3.4 L (4.8-10.8) X10*3/uL Hgb 14.3 (12.0-16.0) g/dl Hct 41.8 (37.0-47.0) % Plt Count 80 L D (160-400) X10*3/uL BMP 09/22/23 08:31 Sodium 137 Potassium 3.6 Chloride 102 Carbon Dioxide 24 BUN 10 Creatinine 0.79 Calcium 9.0 Liver Function 09/22/23 Range/Units 08:31 Total Bilirubin 0.5 (0.0-1.0) mg/dL Direct Bilirubin 0.2 (0.0-0.5) mg/dL AST 46 H (5-31) U/L ALT 29 (0-31) U/L Alkaline Phosphatase 51 (39-117) U/L Albumin 3.9 (3.5-5.0) g/dL Assessment and Plan (1) Acute upper respiratory infection: Status: Acute (2) Hypoxia: Status: Acute (3) Asthma with exacerbation: Qualifiers: Asthma persistence: persistent Asthma severity: moderate Qualified Code(s): J45.41 - Moderate persistent asthma with (acute) exacerbation Status: Acute Plan She has acute shortness of breath. She does have asthma and this is possible cause. However it appears she hasnt been adherent with Descovy and TIvicay and possible Bactrim. She also is unvaccinated and has active Hepatitis C. Therefore she is quite immunocompromised and susceptible to infections due to lack vaccination apparently. PJP and PE in differential. Treat full dose Bactrim 2 DS bid if tolerated and if not switch to atovaquone 1500 mg daily rx possible PJP. Steroids. Check urine Legionella,strep pneumonia and nares MRSA. Continue Tivicay and Descovy and make sure no PE.
[2023-09-22] MEDS: iohexoL 350 MG/ML 100 ML INFUS..BTL IV (17:30)
[2023-09-22] MEDS: 0.9 % Sodium Chloride Flush 3 ML SYRINGE IVFLUSH (19:31)
--- NOTE | 2023-09-22 19:35 | PC.NURSE ---
Assumed care of pt. Pt lying on stretcher, no acute distress at this time. Pt breathing treatment completed, pending medications from pharmacy for administration. No acute distress at this time.
[2023-09-22] MEDS: Dolutegravir Sodium 50 MG TABLET PO (19:57)
[2023-09-22] MEDS: methylPREDNISolone Sod Succ 40 MG/ML VIAL IVPUSH (19:57)
[2023-09-22] MEDS: Sulfamethox/Trimeth 800/160 TABLET 2 TAB PO (19:57)
[2023-09-22] MEDS: Emtricitabine/Tenofov Alafenam TABLET 1 TAB PO (19:57)
--- NOTE | 2023-09-22 20:29 | MHC.CM.ED ---
Addendum entered by Carol Etienne 09/22/23 20:38: Pt is UNVACCINATED Original Note: CM met with admitted patient awaiting bed assignment. A&O x4. Pt lives with aunt and daughter. Is independent. No DME/Services. Pt is on methadone, 115 mg daily. Gets weekly methadone from [facility] clinic on [facility]. Pt has no addiction supports and does not want them. [facility] to [facility] the [facility]. Is NOT interested in Addiction medicine consult. Pt is aware that they will order her methadone. She does not want to speak to anyone regarding her addiction. Pt has hx of medication non-compliance, hep C positive and HIV positive. Pt declines HCP. THRIVE assessment is negative. D/C plan: Home without services. Pt will arrange transport home. CM will follow for any discharge needs.
[2023-09-23] VITALS (9 sets, daily range): BP systolic 117–148; BP diastolic 57–76; PULSE 63–79; RESP 14–22; TEMP 36.4–37.3; O2SAT 93–99; BMI 31.0
[2023-09-23] MEDS: 0.9 % Sodium Chloride Flush 3 ML SYRINGE IVFLUSH ×4 (00:55→21:25)
[2023-09-23 06:17] LABS: Imm Gran Abs Auto 0.02 X10*3/uL (0.00-0.03); Imm Gran Pct Auto 0.4 % (0.0-0.4); Lymphocytes Absolute Auto 0.9 X10*3/uL (1.2-4.9)
[2023-09-23] MEDS: Sulfamethox/Trimeth 800/160 TABLET 2 TAB PO ×2 (06:17→17:23)
[2023-09-23] MEDS: methylPREDNISolone Sod Succ 40 MG/ML VIAL IVPUSH ×2 (06:17→17:23)
[2023-09-23 06:19] LABS: Hemoglobin 13.5 g/dl (12.0-16.0); Lymphocytes Percent Auto 19.1 % (20-40); Mean Corpuscular HGB Conc 33.8 g/dl (31.0-35.0); Mean Corpuscular Hemoglobin 29.7 pg (27.0-33.0); Mean Corpuscular Volume 88.1 fL (80.0-98.0); Mean Platelet Volume 10.9 fL (9.4-12.3); Monocytes Absolute Auto 0.4 X10*3/uL (0.1-1.2); Monocytes Percent Auto 7.8 % (2-11); Neutrophils Absolute Auto 3.2 x10*3/uL (2.0-8.3); Neutrophils Percent Auto 72.7 % (45-73); Red Blood Count 4.54 X10*6/uL (4.20-5.50); Red Cell Distribution Width 13.6 % (11.0-16.0)
[2023-09-23 06:22] LABS: Platelet Count 94 X10*3/uL (160-400); White Blood Count 4.5 X10*3/uL (4.8-10.8)
[2023-09-23] MEDS: Albuterol Sulfate (0.083%) 2.5 MG/3 ML VIAL.NEB INHALE (06:26)
[2023-09-23 06:39] LABS: Anion Gap 11 (12-20); Blood Urea Nitrogen 11 mg/dL (9-16); Calcium 8.5 mg/dL (8.4-10.2); Carbon Dioxide 25 mmol/L (22-29); Chloride 106 mmol/L (96-108); Creatinine Clr Calc Pharmacy 99.9; Estimated Glomerular Filt Rate > 60; Glucose Random 83 mg/dL (60-115); Potassium 4.9 mmol/L (3.3-5.1); Sodium 137 mmol/L (135-145)
[2023-09-23] MEDS: Albuterol/Iprat 2.5/0.5MG 3 ML AMPUL.NEB INHALE ×4 (07:52→20:08)
--- NOTE | 2023-09-23 08:13 | PC.NURSE ---
assumed care of pt at 0700, pt a&ox4, vss - maintaining O2 on 3L via NC. plan for transport to bed assignment. no new orders at this time.
--- NOTE | 2023-09-23 08:36 | MHC.RECOVRN ---
Received Addiction Medicine consult for ongoing substance use. Chart reviewed, pt had presented to the ED reporting feeling sick x 2 days, SOB, fevers at home. Pt admitted for acute upper respiratory infection, hypoxia, and asthma with exacerbation. Per case management, pt declines speaking with ACS. ACS available if pt changes her mind or if there are questions/concerns.
--- NOTE | 2023-09-23 08:37 | PM.EVENT ---
Event Note Date of Service: 09/23/23 Event Note: Addiction consult placed for patient currently medically admitted with asthma exacerbation and ongoing cocaine use Patient declined to meet with ACS. Please re-consult should patient change her mind. Outpatient methadone order in place. Time Spent With Patient Time: Total time managing care of this patient today ____ minutes.
[2023-09-23] MEDS: Dolutegravir Sodium 50 MG TABLET PO (09:51)
[2023-09-23] MEDS: Emtricitabine/Tenofov Alafenam TABLET 1 TAB PO (09:51)
[2023-09-23] MEDS: methADONE HCl 20 MG/2 ML ORAL.CONC 115 MG PO (09:52)
--- NOTE | 2023-09-23 10:30 | P.PNIM_ITS ---
Subjective Subjective Date of Service: 09/23/23 Interval History: very wheezy and sob Physical Exam 2 Vital Signs: Vital Signs: Last Vital Signs Temp 98.0 F 09/23/23 09:21 Pulse 79 09/23/23 09:21 Resp 22 H 09/23/23 09:21 BP 148/72 H 09/23/23 09:21 Pulse Ox 95 09/23/23 09:21 O2 Del Method Nasal Cannula 09/23/23 09:21 O2 Flow Rate 2 09/23/23 09:21 BMI result Body Mass Index 30.5 General: AO X 3, dyspneic Resp: wheezing bilateral, accessory muscles used CVS: S1,S2,RRR GI: soft, non tender, non distended Neuro: motor grossly intact, alert Psych: appropriate affect, appropriate insight Objective Data Active Medications Acetaminophen (Acetaminophen 325 Mg Tablet) 650 mg PO Q6H PRN PRN Reason: Pain, Mild (Pain Scale 1-3) Last Admin: 09/22/23 23:11 Dose: 650 mg Documented By: TARA Albuterol Sulfate (Albuterol Sulfate (0.083%) 2.5 Mg/3 Ml Vial.Neb) 2.5 mg INHALE Q2H PRN PRN Reason: Shortness of Breath/Wheezing Last Admin: 09/23/23 06:26 Dose: 2.5 mg Documented By: MARGIE Albuterol/Ipratropium (Albuterol/Iprat 2.5/0.5mg 3 Ml Ampul.Neb) 3 ml INHALE RQ4H WHILE AWAKE [facility] Last Admin: 09/23/23 07:52 Dose: 3 ml Documented By: CATHIE Dolutegravir Sodium (Dolutegravir Sodium 50 Mg Tablet) 50 mg PO DAILY [facility] Last Admin: 09/23/23 09:51 Dose: 50 mg Documented By: TYESHA Emtricitabine/Tenofovir Alafenamide (Emtricitabine/Tenofov Alafenam Tablet) 1 tab PO DAILY [facility] Last Admin: 09/23/23 09:51 Dose: 1 tab Documented By: TYESHA Methadone HCl (Methadone Hcl 20 Mg/2 Ml Oral.Conc) 115 mg PO DAILY [facility] Last Admin: 09/23/23 09:52 Dose: 115 mg Documented By: TYESHA Methylprednisolone Sodium Succinate (Methylprednisolone Sod Succ 40 Mg/Ml Vial) 40 mg IVPUSH Q12H [facility] Last Admin: 09/23/23 06:17 Dose: 40 mg Documented By: TARA Ondansetron HCl (Ondansetron Hcl 4 Mg/2 Ml Vial) 4 mg IVPUSH Q8H PRN PRN Reason: Nausea and Vomiting Senna (Sennosides 8.6 Mg Tablet) 17.2 mg PO BEDTIME PRN PRN Reason: Constipation Sodium Chloride (0.9 % Sodium Chloride Flush 3 Ml Syringe) 3 ml IVFLUSH QSHIFT [facility] Last Admin: 09/23/23 07:57 Dose: 3 ml Documented By: RODRIGO Trimethoprim/Sulfamethoxazole (Sulfamethox/Trimeth 800/160 Tablet) 2 tab PO Q12H [facility] Last Admin: 09/23/23 06:17 Dose: 2 tab Documented By: TARA Labs 09/23/23 04:49 09/23/23 04:49 Labs: Laboratory Results - last 24 hr 09/22/23 09/22/23 09/23/23 10:56 13:59 04:49 MCV 88.1 MCH 29.7 MCHC 33.8 RDW 13.6 Plt Count 94 L MPV 10.9 Immature Gran % (Auto) 0.4 Neut % (Auto) 72.7 Lymph % (Auto) 19.1 L [place] % (Auto) 7.8 Eos % (Auto) 0.0 Baso % (Auto) 0.0 Lymph # (Auto) 0.9 L [place] # (Auto) 0.4 Eos # (Auto) 0.0 Baso # (Auto) 0.0 Abs Immat Gran (auto) 0.02 Absolute Neuts (auto) 3.2 Absolute Nucleated RBC 0.000 Nucleated RBC % (auto) 0.0 Anion Gap 11 L Estim Creat Clear Calc 99.9 Estimated GFR > 60 Random Glucose 83 Lactic Acid F/U @ 2Hr 2.7 H* Lactic Acid F/U @ 4Hr 1.3 Calcium 8.5 Microbiology Microbiology Results: Microbiology 09/22/23 08:08 Blood Culture - Preliminary Blood - Venous No growth after 24 hours. Assessment and Plan (1) Hypoxia: Status: Acute Plan 48F PMH HIV, HCV, severe persistent asthma, polysubstance dependence, presented with sob Acute hypoxic respiratory failure secondary to severe persistent asthma with acute decompensation Continue IV steroids, DuoNebs, Bactrim Still requiring 2 L Continue to wean HIV Continue Descovy and tivicay Bactrim for Pneumocystis prophylaxis Chronic hepatitis-C complicated by thrombocytopenia Outpatient follow-up Polysubstance dependence Continue methadone, addiction team following DVT prophylaxis with Lovenox Full code reason for continued hospitalization:sob, wheezing, hpyoxic Quality Stroke Does the patient have a stroke diagnosis?: No VTE Prior VTE?: No VTE Risk Level:: Medical - moderate - high VTE Device Contraindication: Treatment Not Indicated VTE Drug Contraindication: N/A - Med Ordered
--- NOTE | 2023-09-23 11:47 | P.CDIM_ITS ---
PROVIDER RESPONSE TEXT: To clarify, the appropriate diagnosis supported by the clinical indicators: Hypomagnesemia: acute, treated QUERY TEXT: PHYSICIAN'S DOCUMENTATION REQUEST Date of Query: 09/23/2023 11:39 AM EDT Patient Name: Vandana Mobley Admit Date: 09/22/2023 Dear Jrarod Woo, A review of the medical record indicates additional documentation may be needed. Please review below and update the documentation accordingly. Clinical Indicators: LAB FINDINGS: magnesium 1.5 L 2g IV magnesium Based on the above, is there a diagnosis that correlates with these lab findings: Hypomagnesemia resolved, suspected, possible etc. Labs indicate a diagnosis of (please specify) Other (explain) Clinically unable to determine (explain) Thank you, Andreea Lyon, CCS, CDIS Use of terms such as suspected, likely, concern for, or probable (associated with a specific diagnosi s that is being evaluated, monitored, or treated as if it exists) are acceptable and can be coded in the inpatient se tting, when documented at the time of discharge. Please use your independent medical judgment in providing your response. THIS QUERY IS PART OF THE PERMANENT MEDICAL RECORD
[2023-09-23] MEDS: Enoxaparin Sodium 40 MG/0.4 ML SYRINGE SUBCUT (12:32)
[2023-09-23 14:58] LABS: MRSA Nasal PCR NEGATIVE (Negative); SA Nasal PCR NEGATIVE (Negative)
[2023-09-23] MEDS: Acetaminophen 325 MG TABLET 650 MG PO (21:23)
--- NOTE | 2023-09-23 23:14 | P.PNID_ITS ---
Subjective Subjective Date of Service: 09/23/23 Critical Care Time (minutes): 15 Comment: she feels less short of breath Objective Data Labs 09/23/23 04:49 09/23/23 04:49 Labs: Laboratory Results - last 24 hr 09/23/23 09/23/23 04:49 13:00 WBC 4.5 L RBC 4.54 Hgb 13.5 Hct 40.0 MCV 88.1 MCH 29.7 MCHC 33.8 RDW 13.6 Plt Count 94 L MPV 10.9 Immature Gran % (Auto) 0.4 Neut % (Auto) 72.7 Lymph % (Auto) 19.1 L [place] % (Auto) 7.8 Eos % (Auto) 0.0 Baso % (Auto) 0.0 Lymph # (Auto) 0.9 L [place] # (Auto) 0.4 Eos # (Auto) 0.0 Baso # (Auto) 0.0 Abs Immat Gran (auto) 0.02 Absolute Neuts (auto) 3.2 Absolute Nucleated RBC 0.000 Nucleated RBC % (auto) 0.0 Sodium 137 Potassium 4.9 D Chloride 106 Carbon Dioxide 25 Anion Gap 11 L BUN 11 Creatinine 0.83 Estim Creat Clear Calc 99.9 Estimated GFR > 60 Random Glucose 83 Calcium 8.5 Nasal Screen MRSA (PCR) NEGATIVE Nasal S. aureus Screen NEGATIVE Nasal MRSA/S.aureus Interp SEE NOTE Microbiology Microbiology Results: Microbiology 09/22/23 08:31 Blood - Venous Blood Culture - Preliminary No growth after 24 hours. 09/22/23 08:08 Blood - Venous Blood Culture - Preliminary No growth after 24 hours. Physical Exam 2 Vital Signs: Vital Signs: Last Vital Signs Temp 97.6 F 09/23/23 19:20 Pulse 67 09/23/23 20:08 Resp 18 09/23/23 20:08 BP 140/76 H 09/23/23 19:20 Pulse Ox 97 09/23/23 19:20 O2 Del Method Nasal Cannula 09/23/23 19:20 O2 Flow Rate 3 09/23/23 19:20 BMI result Body Mass Index 31.0 Const: General: cooperative Resp: Effort & Inspection: normal respiratory effort Cardio: Rate: regular rate Rhythm: regular rhythm Assessment and Plan Assessment and plan (1) HIV (human immunodeficiency virus infection): Status: Acute (2) Hypoxia: Status: Acute Plan probable asthma possible PJP 21 d Bactrim 2 DS bid Rx asthma Time Spent With Patient Time: Total time managing care of this patient today ____ minutes.
[2023-09-24] VITALS (8 sets, daily range): BP systolic 129–164; BP diastolic 79–85; PULSE 67–73; RESP 16–18; TEMP 36–36.4; O2SAT 95–96
[2023-09-24] MEDS: methylPREDNISolone Sod Succ 40 MG/ML VIAL IVPUSH (06:08)
[2023-09-24] MEDS: Sulfamethox/Trimeth 800/160 TABLET 2 TAB PO ×2 (06:08→17:20)
[2023-09-24] MEDS: Albuterol/Iprat 2.5/0.5MG 3 ML AMPUL.NEB INHALE ×4 (08:38→20:34)
--- NOTE | 2023-09-24 09:20 | P.PNIM_ITS ---
Subjective Subjective Date of Service: 09/24/23 Interval History: still sob, wheezy Physical Exam 2 Vital Signs: Vital Signs: Last Vital Signs Temp 96.8 F 09/24/23 07:29 Pulse 69 09/24/23 08:39 Resp 18 09/24/23 08:39 BP 164/81 H 09/24/23 07:29 Pulse Ox 95 09/24/23 07:29 O2 Del Method Nasal Cannula 09/24/23 07:29 O2 Flow Rate 1 09/24/23 07:29 BMI result Body Mass Index 31.0 General: AO X 3, no acute distress Resp: wheezing bilateral, no accessory muscles used CVS: S1,S2,RRR GI: soft, non tender, non distended Neuro: motor grossly intact, alert Psych: appropriate affect, appropriate insight Const: General: cooperative Resp: Effort & Inspection: normal respiratory effort Cardio: Rate: regular rate Rhythm: regular rhythm Objective Data Active Medications Acetaminophen (Acetaminophen 325 Mg Tablet) 650 mg PO Q6H PRN PRN Reason: Pain, Mild (Pain Scale 1-3) Last Admin: 09/23/23 21:23 Dose: 650 mg Documented By: CHAZ Albuterol Sulfate (Albuterol Sulfate (0.083%) 2.5 Mg/3 Ml Vial.Neb) 2.5 mg INHALE Q2H PRN PRN Reason: Shortness of Breath/Wheezing Last Admin: 09/23/23 06:26 Dose: 2.5 mg Documented By: MARGIE Albuterol/Ipratropium (Albuterol/Iprat 2.5/0.5mg 3 Ml Ampul.Neb) 3 ml INHALE RQ4H WHILE AWAKE [facility] Last Admin: 09/24/23 08:38 Dose: 3 ml Documented By: CECELIA Dolutegravir Sodium (Dolutegravir Sodium 50 Mg Tablet) 50 mg PO DAILY [facility] Last Admin: 09/23/23 09:51 Dose: 50 mg Documented By: TYESHA Emtricitabine/Tenofovir Alafenamide (Emtricitabine/Tenofov Alafenam Tablet) 1 tab PO DAILY [facility] Last Admin: 09/23/23 09:51 Dose: 1 tab Documented By: TYESHA Enoxaparin Sodium (Enoxaparin Sodium 40 Mg/0.4 Ml Syringe) 40 mg SUBCUT Q24H [facility] Last Admin: 09/23/23 12:32 Dose: 40 mg Documented By: TYESHA Methadone HCl (Methadone Hcl 20 Mg/2 Ml Oral.Conc) 115 mg PO DAILY [facility] Last Admin: 09/23/23 09:52 Dose: 115 mg Documented By: TYESHA Methylprednisolone Sodium Succinate (Methylprednisolone Sod Succ 40 Mg/Ml Vial) 40 mg IVPUSH Q12H [facility] Last Admin: 09/24/23 06:08 Dose: 40 mg Documented By: CHAZ Ondansetron HCl (Ondansetron Hcl 4 Mg/2 Ml Vial) 4 mg IVPUSH Q8H PRN PRN Reason: Nausea and Vomiting Senna (Sennosides 8.6 Mg Tablet) 17.2 mg PO BEDTIME PRN PRN Reason: Constipation Sodium Chloride (0.9 % Sodium Chloride Flush 3 Ml Syringe) 3 ml IVFLUSH QSHIFT [facility] Last Admin: 09/24/23 07:22 Dose: Not Given Documented By: MAYANK Non-Admin Reason: See Note Trimethoprim/Sulfamethoxazole (Sulfamethox/Trimeth 800/160 Tablet) 2 tab PO Q12H [facility] Last Admin: 09/24/23 06:08 Dose: 2 tab Documented By: CHAZ Labs 09/23/23 04:49 09/23/23 04:49 Labs: Laboratory Results - last 24 hr 09/23/23 13:00 Nasal Screen MRSA (PCR) NEGATIVE Nasal S. aureus Screen NEGATIVE Nasal MRSA/S.aureus Interp SEE NOTE Microbiology Microbiology Results: Microbiology 09/22/23 08:31 Blood Culture - Preliminary Blood - Venous No growth after 24 hours. 09/22/23 08:08 Blood Culture - Preliminary Blood - Venous No growth after 24 hours. Assessment and Plan (1) Hypoxia: Status: Acute Plan 48F PMH HIV, HCV, severe persistent asthma, polysubstance dependence, presented with sob Acute hypoxic respiratory failure secondary to severe persistent asthma with acute decompensation Continue IV steroids, DuoNebs, Bactrim Continue to wean HIV Continue Descovy and tivicay Bactrim for Pneumocystis prophylaxis Chronic hepatitis-C complicated by thrombocytopenia Outpatient follow-up Polysubstance dependence Continue methadone, addiction team following DVT prophylaxis with Lovenox Full code reason for continued hospitalization:sob, wheezing, hpyoxic Quality Stroke Does the patient have a stroke diagnosis?: No VTE Prior VTE?: No VTE Risk Level:: Medical - moderate - high VTE Device Contraindication: Treatment Not Indicated VTE Drug Contraindication: N/A - Med Ordered
[2023-09-24 09:35] LABS: Hematocrit 42.1 % (37.0-47.0); Hemoglobin 14.5 g/dl (12.0-16.0); Mean Corpuscular HGB Conc 34.4 g/dl (31.0-35.0); Mean Corpuscular Hemoglobin 29.5 pg (27.0-33.0); Mean Corpuscular Volume 85.6 fL (80.0-98.0); Mean Platelet Volume 10.1 fL (9.4-12.3); Platelet Count 104 X10*3/uL (160-400); Red Blood Count 4.92 X10*6/uL (4.20-5.50); Red Cell Distribution Width 13.7 % (11.0-16.0)
[2023-09-24 09:36] LABS: Adenovirus PCR Not Detected (Not Detect.); Bordetella parapertussis PCR Not Detected (Not Detect.); Bordetella pertussis PCR Not Detected (Not Detect.); Chlamydia pneumoniae PCR Not Detected (Not Detect.); Coronavirus 229E PCR Not Detected (Not Detect.); Coronavirus HKU1 PCR Not Detected (Not Detect.); Coronavirus NL63 PCR Not Detected (Not Detect.); Coronavirus OC43 PCR Not Detected (Not Detect.); Human metapneumovirus PCR Not Detected (Not Detect.); Influenza A PCR Not Detected (Not Detect.); Influenza B PCR Not Detected (Not Detect.); Mycoplasma pneumoniae PCR Not Detected (Not Detect.); Parainfluenza 1 PCR Not Detected (Not Detect.); Parainfluenza 2 PCR Not Detected (Not Detect.); Parainfluenza 3 PCR Not Detected (Not Detect.); Parainfluenza 4 PCR Not Detected (Not Detect.); RSV PCR Not Detected (Not Detect.); Rhino/Enterovirus PCR Not Detected (Not Detect.)
[2023-09-24 09:36] LABS: White Blood Count 2.4 X10*3/uL (4.8-10.8)
[2023-09-24 09:48] LABS: Anion Gap 13 (12-20); Blood Urea Nitrogen 12 mg/dL (9-16); Calcium 8.9 mg/dL (8.4-10.2); Carbon Dioxide 23 mmol/L (22-29); Chloride 101 mmol/L (96-108); Creatinine Clr Calc Pharmacy 108.5; Estimated Glomerular Filt Rate > 60; Glucose Fasting 127 mg/dL (60-99); Potassium 4.1 mmol/L (3.3-5.1); Sodium 133 mmol/L (135-145)
[2023-09-24] MEDS: Emtricitabine/Tenofov Alafenam TABLET 1 TAB PO (09:50)
[2023-09-24] MEDS: Dolutegravir Sodium 50 MG TABLET PO (09:50)
[2023-09-24] MEDS: methADONE HCl 20 MG/2 ML ORAL.CONC 115 MG PO (09:50)
[2023-09-24] MEDS: Acetaminophen 325 MG TABLET 650 MG PO ×2 (09:56→21:15)
[2023-09-24 10:37] LABS: SARS-CoV-2 PCR Not Detected (Not Detect.)
[2023-09-24] MEDS: Enoxaparin Sodium 40 MG/0.4 ML SYRINGE SUBCUT (11:08)
[2023-09-24 17:28] LABS: HIV RNA PCR Qn Copies 109000 copies/mL (NOT DETECTED); HIV RNA PCR Qn Log Copies 5.04 (NOT DETECTED)
[2023-09-24] MEDS: predniSONE 20 MG TABLET 40 MG PO (17:40)
[2023-09-25 02:59] VITALS: BP 144/76; PULSE 60; TEMP 36.2; O2SAT 95
[2023-09-25 06:19] LABS: Hematocrit 47.6 % (37.0-47.0); Hemoglobin 15.7 g/dl (12.0-16.0); Mean Corpuscular Hemoglobin 29.1 pg (27.0-33.0); Mean Corpuscular Volume 88.3 fL (80.0-98.0); Mean Platelet Volume 10.3 fL (9.4-12.3); Platelet Count 115 X10*3/uL (160-400); Red Blood Count 5.39 X10*6/uL (4.20-5.50); Red Cell Distribution Width 13.6 % (11.0-16.0)
[2023-09-25 06:20] LABS: White Blood Count 2.3 X10*3/uL (4.8-10.8)
[2023-09-25 06:36] LABS: Anion Gap 13 (12-20); Blood Urea Nitrogen 14 mg/dL (9-16); Calcium 9.6 mg/dL (8.4-10.2); Carbon Dioxide 26 mmol/L (22-29); Chloride 101 mmol/L (96-108); Creatinine Clr Calc Pharmacy 89.8; Estimated Glomerular Filt Rate > 60; Glucose Fasting 103 mg/dL (60-99); Potassium 5.4 mmol/L (3.3-5.1); Sodium 135 mmol/L (135-145)
[2023-09-25] MEDS: Sulfamethox/Trimeth 800/160 TABLET 2 TAB PO (06:39)
[2023-09-25 07:34] VITALS: BP 159/74; PULSE 67; RESP 18; TEMP 36; O2SAT 95
[2023-09-25 07:54] VITALS: PULSE 67; RESP 18; O2SAT 95
[2023-09-25] MEDS: Albuterol/Iprat 2.5/0.5MG 3 ML AMPUL.NEB INHALE ×2 (07:54→11:43)
--- NOTE | 2023-09-25 08:58 | PM.DS ---
DS: Providers Provider Date of Service: 09/25/23 Date of admission: 09/22/23 11:39 Primary care physician: Radha Brewer MD Consults: 09/22/23 11:44 Consult to Infectious Diseases Routine Consulting Provider: [facility] Infectious Disease Reason for consultation: HIV patient, asthma exac. only restarted hiv meds 1 month ago 09/22/23 12:01 Addiction Medicine Routine Consulting Provider: Addiction Covering Reason for consultation: ongoing substance use DS: Diagnosis Discharge Diagnosis (1) Hypoxia: Status: Acute DS: Summary Hospital Course Hospital Course: from initial hpi: 48-year-old female with history of HIV recently restarted on Tivicay and Biktarvy as well as Bactrim 1 month ago, history of untreated hepatitis-C, mild persistent asthma, genital herpes, who is a current 2 cigarette per day smoker and ongoing cocaine abuser with history of IV drug abuse presents to the ED earlier today for evaluation of shortness of breath, wheezing, and productive cough ongoing for 2 days. She has also had fevers up to 100.6 at home as well as chills. Reports her aunt with whom she lives and daughter are also sick with similar symptoms and her aunt is also admitted at our facility currently. Has reported decreased appetite. No sore throat, congestion, abdominal pain, nausea, vomiting, diarrhea, urinary symptoms, lightheadedness, chest pain. Per EMS, patient was found at 88% on room air and does not use home O2. On arrival, patient tachycardic to 106, intermittently tachypneic to 22 respirations. Despite treatments with IV Solu-Medrol, DuoNebs, magnesium, patient remains hypoxic to 89% on room air now maintaining oximetry 91% on 2 L supplemental O2. She is leukopenic at 3.4, thrombocytopenic to ED. Renal function electrolyte levels normal. Initial lactic acid 2.7, repeat 2.7. Magnesium 1.5, negative for influenza, RSV. CXR unremarkable. In the ED, has received Tylenol, DuoNeb, 2 g IV magnesium, 1 g Rocephin, 60 mg IV methylprednisolone as well as 1 L IV fluids and methadone. She will be admitted for further management of acute asthma exacerbation with acute hypoxemic respiratory failure. hospital course: Patient was admitted for acute hypoxic respiratory failure secondary to severe persistent asthma with acute decompensation. She was treated with IV Solu-Medrol, DuoNebs, Bactrim. Symptoms improved. Air movement improved. Patient was weaned to room air. On discharge will continue 5 more days of prednisone. Course complicated by mild hyperkalemia 5.4. Bactrim was discontinued. Patient will be put on atovaquone instead. For HIV she was continued on Descovy and Tivicay. Initially treated with Bactrim for Pneumocystis, now switched to atovaquone as mentioned. For chronic hepatitis-C complicated by thrombocytopenia she will follow up outpatient. For polysubstance dependence she was seen by addiction team and continued on methadone. Patient is feeling better and will be discharged home. Time Attestation Discharge Coordination Time (in mins): 35 Quality: Safe Use of Opioids Does Pt have an Active Cancer Diagnosis on the Problem List?: No Quality: Stroke Does the patient have a stroke diagnosis?: No Physical Exam Vital Signs: Vital Signs: Last Vital Signs Temp 96.8 F 09/25/23 07:34 Pulse 67 09/25/23 07:54 Resp 18 09/25/23 07:54 BP 159/74 H 09/25/23 07:34 Pulse Ox 95 09/25/23 07:34 O2 Del Method Nasal Cannula 09/25/23 07:34 O2 Flow Rate 1 09/25/23 07:34 BMI result Body Mass Index 31.0 General: AO X 3, no acute distress Resp: no accessory muscles used, good air movement, some expiratory wheezes still CVS: S1,S2,RRR GI: soft, non tender, non distended Neuro: motor grossly intact, alert Psych: appropriate affect, appropriate insight DS: Data Data Completed and Pending Labs on day of discharge: Laboratory Results - last 24 hr 09/22/23 09/23/23 09/24/23 12:32 15:00 09:21 WBC 2.4 L RBC 4.92 Hgb 14.5 Hct 42.1 MCV 85.6 MCH 29.5 MCHC 34.4 RDW 13.7 Plt Count 104 L MPV 10.1 Absolute Nucleated RBC 0.000 Nucleated RBC % (auto) 0.0 Sodium 133 L Potassium 4.1 Chloride 101 Carbon Dioxide 23 Anion Gap 13 BUN 12 Creatinine 0.77 Estim Creat Clear Calc 108.5 Estimated GFR > 60 Fasting Glucose 127 H Calcium 8.9 Magnesium Respiratory Panel Tre[place] See Note Adenovirus (Rapid PCR) Not Detected B.pert (TEM-PCR) Not Detected B.parapertussis DNA PCR Not Detected C. pneumoniae DNA (PCR) Not Detected Coronavirus OC43 (PCR) Not Detected Coronavirus HKU1 (PCR) Not Detected Coronavirus 229E (PCR) Not Detected Coronavirus NL63 (PCR) Not Detected HIV-1 RNA copies/mL 918280 H HIV-1 RNA logcopies/mL 5.04 H Human Metapneumovir PCR Not Detected Influenza A (RT-PCR) Not Detected Influenza B (RT-PCR) Not Detected M. pneumoniae (PCR) Not Detected Parainfluenza 1 (PCR) Not Detected Parainfluenza 2 (PCR) Not Detected Parainfluenza 3 (PCR) Not Detected Parainfluenza 4 (PCR) Not Detected RSV (PCR) Not Detected Entero/Rhino (PCR) Not Detected SARS-CoV-2 RNA (RT-PCR) Not Detected 09/25/23 05:55 WBC 2.3 L RBC 5.39 Hgb 15.7 Hct 47.6 H MCV 88.3 MCH 29.1 MCHC 33.0 RDW 13.6 Plt Count 115 L MPV 10.3 Absolute Nucleated RBC 0.000 Nucleated RBC % (auto) 0.0 Sodium 135 Potassium 5.4 H D Chloride 101 Carbon Dioxide 26 Anion Gap 13 BUN 14 Creatinine 0.93 Estim Creat Clear Calc 89.8 Estimated GFR > 60 Fasting Glucose 103 H Calcium 9.6 D Magnesium 2.0 Respiratory Panel [place] Adenovirus (Rapid PCR) B.pert (TEM-PCR) B.parapertussis DNA PCR C. pneumoniae DNA (PCR) Coronavirus OC43 (PCR) Coronavirus HKU1 (PCR) Coronavirus 229E (PCR) Coronavirus NL63 (PCR) HIV-1 RNA copies/mL HIV-1 RNA logcopies/mL Human Metapneumovir PCR Influenza A (RT-PCR) Influenza B (RT-PCR) M. pneumoniae (PCR) Parainfluenza 1 (PCR) Parainfluenza 2 (PCR) Parainfluenza 3 (PCR) Parainfluenza 4 (PCR) RSV (PCR) Entero/Rhino (PCR) SARS-CoV-2 RNA (RT-PCR) Preliminary micro results at discharge 09/22/23 08:31 Blood Culture - Preliminary Blood - Venous No growth after 48 hours. 09/22/23 08:08 Blood Culture - Preliminary Blood - Venous No growth after 48 hours. Discharge Plan Discharge Anticipated Discharge Date/Time: 09/25/23 08:54 Patient Disposition: Home, Self-Care Discharge Diagnosis: asthma, hiv Referrals: Radha Brewer MD [Primary Care Provider] - 1 Week Alexandrea Sweet MD [Physician] - 1 Week Discharge Medications: New atovaquone 750 mg/5 mL suspension 1,500 mg PO DAILY 90 Days Qty: 900 0RF Rx Instructions: must administer with food, preferably a high-fat meal prednisone 20 mg Tablet 40 mg PO DAILY Qty: 10 0RF Continued Tivicay 50 mg tablet 1 tab PO DAILY Descovy 200-25 mg tablet 1 tab PO DAILY methadone 10 mg/mL Concentrate 115 mg PO DAILY Rx Instructions: [facility]- [phone] albuterol sulfate [ProAir HFA] 90 mcg/actuation HFA aerosol inhaler 2 puff PO Q4H PRN (Reason: Shortness Of Breath) Qty: 6.7 2RF Discontinued sulfamethoxazole-trimethoprim 800-160 mg tablet 1 tab PO DAILY Discharge Orders: Discharge Order (Routine); Ordered 09/25/23 Ordered By: Jarrod Woo Diet: Advance to usual diet Activity on Discharge: As tolerated Stand Alone Forms: Patient Portal Discharge page Care Plan Goals: recovery Health Concerns: hiv, asthma Plan of Treatment: 5 days prednsione, stop bactrim, take hiv meds, start atovaquone, follow up bmp in about 1 week, follow up with ID Assessment: see above
[2023-09-25] MEDS: 0.9 % Sodium Chloride Flush 3 ML SYRINGE IVFLUSH (09:05)
[2023-09-25] MEDS: methADONE HCl 20 MG/2 ML ORAL.CONC 115 MG PO (09:05)
[2023-09-25] MEDS: predniSONE 20 MG TABLET 40 MG PO (09:06)
[2023-09-25] MEDS: Emtricitabine/Tenofov Alafenam TABLET 1 TAB PO (09:06)
[2023-09-25] MEDS: Atovaquone 750 MG/5 ML ORAL.SUSP 1500 MG PO (09:07)
[2023-09-25] MEDS: Dolutegravir Sodium 50 MG TABLET PO (09:07)
--- NOTE | 2023-09-25 10:51 | MHC.CM.PN ---
PT WILL DC HOME TODAY WITH NO NEW SERVICES PT TO ARRANGE TRANSPORT
[2023-09-25 11:43] VITALS: PULSE 70; RESP 15; O2SAT 96
[2023-09-26 23:49] LABS: Strep Pneumo Ag urine Detected (Not Detected)
[2023-09-27 06:50] LABS: Legionella Ag Urine Not Detected (Not Detected)
== END 2023-09-25 12:30 | disposition home or self-care (01) | DRG 141 ==
LOC: HO.ED 09:54 → HO.EDOVER 12:11 → HO.S3 09-23 08:08
PROVIDERS: Internal Medicine; Admitting Provider Physician Assistant; Emergency Provider Emergency Medicine; PCP Family Medicine; Visit Provider Internal Medicine
DX: J45.51 Severe persistent asthma with (acute) exacerbation (principal); J96.01 Acute respiratory failure with hypoxia; D69.59 Other secondary thrombocytopenia; B18.2 Chronic viral hepatitis C; E87.5 Hyperkalemia; B20 Human immunodeficiency virus [HIV] disease; F19.20 Other psychoactive substance dependence, uncomplicated; F14.10 Cocaine abuse, uncomplicated; F11.20 Opioid dependence, uncomplicated; Z28.310 Unvaccinated for COVID-19; E83.42 Hypomagnesemia; F17.210 Nicotine dependence, cigarettes, uncomplicated; Z20.822 Contact with and (suspected) exposure to COVID-19; Z71.6 Tobacco abuse counseling; Z79.899 Other long term (current) drug therapy
CPT/HCPCS: 0241U; 36415; 71045; 71275; 80048; 80076; 83605; 83735; 85025; 85027; 87040; 87449; 87536; 87633; 87640; 87641; 87899; 94640; 99221; 99285; J0696; J1650; J2920; J2930; J3475; Q9967

== ENCOUNTER → 2023-09-22 11:39 | Outpatient (BNV) | payer MEDICAID, SELFPAY | PROVIDERS: Admitting Provider Physician Assistant; Emergency Provider Emergency Medicine; PCP Family Medicine; Visit Provider Internal Medicine | DX: B20 Human immunodeficiency virus [HIV] disease (principal); R09.02 Hypoxemia | CPT/HCPCS: 99222; 99232 ==

== ENCOUNTER → 2023-09-22 11:39 | Outpatient (BNV) | payer MEDICAID, SELFPAY | PROVIDERS: Admitting Provider Physician Assistant; Emergency Provider Emergency Medicine; PCP Family Medicine; Visit Provider Physician Assistant | DX: J96.01 Acute respiratory failure with hypoxia (principal); B20 Human immunodeficiency virus [HIV] disease | CPT/HCPCS: 99223; 99232; 99233; 99239 ==

== ENCOUNTER 2024-02-29 14:25 | Emergency (ER) | payer MEDICAID, SELFPAY ==
[2024-02-29 14:37] VITALS: BP 104/68; PULSE 74; O2SAT 96
[2024-02-29 14:39] VITALS: BP 132/98; PULSE 68; RESP 20; O2SAT 97; BMI 41.3
--- NOTE | 2024-02-29 14:57 | PC.NURSE ---
Patient changed over with security, belongings in [place]
--- NOTE | 2024-02-29 15:06 | PC.NURSE ---
Patient concerned about getting sick after getting so much narcan, did not dose w/ her methadone today. Normal dose is 115mg last dosed Thursday @ [facility].
--- NOTE | 2024-02-29 15:48 | ED.OVERDOSE ---
HPI - Overdose General Chief Complaint: Overdose Stated Complaint: OD,NARCAN BY FAMILY & HPD PER EMS Time Seen by Provider: 02/29/24 15:46 Source: patient and EMS Mode of arrival: EMS Limitations: no limitations History of Present Illness HPI Narrative: Is a 48-year-old female who presents emergency department via EMS for evaluation. Patient reports having an unintentional overdose on ?3 bags of dope?, admits to injecting heroin today. States that she has not used in quite some time but does not provide me an exact time. She is taking methadone but states she did not take her dosage today. She declines interest in assistance with detox/ IVETH eval. She feels mildly nauseous since receiving the 12 mg of Narcan pre-hospital, otherwise denies any complaints at this time. Denies suicidal or homicidal ideations. Denies alcohol usage. Admits to infrequent cocaine usage as well. Related Data Home Medications ?Medication ?Instructions ?Recorded ?Confirmed dolutegravir 50 mg tablet (Tivicay) 1 tab PO DAILY 10/30/21 09/22/23 emtricitabine 200 mg-tenofovir 1 tab PO DAILY 10/30/21 09/22/23 alafenamide fumarate 25 mg tablet (Descovy) methadone 10 mg/mL oral concentrate 115 mg PO DAILY 10/30/21 11/12/22 Previous Rx's ?Medication ?Instructions ?Recorded albuterol sulfate 90 mcg/actuation 2 puff PO Q4H PRN Shortness Of 11/15/22 aerosol inhaler (ProAir HFA) Breath #6.7 grams atovaquone 750 mg/5 mL oral 1,500 mg (10 mL) PO DAILY 3 months 09/25/23 suspension #900 mL prednisone 20 mg tablet 40 mg (2 x 20 mg) PO DAILY #10 tabs 09/25/23 Allergies Allergy/AdvReac Type Severity Reaction Status Date / Time No Known Allergies Allergy Verified 02/29/24 14:40 Review of Systems Review of Systems: Yes all other systems are reviewed and are negative PMFSH Past Medical History Attestation statement: The following information was validated with the patient. Source: old records reviewed Medical History Substance use disorder HIV (human immunodeficiency virus infection) Hepatitis C Substance abuse Asthma Genital herpes Hep C w/o coma, chronic HIV (human immunodeficiency virus infection) Social History Social History Household Members: Children Housing: Apartment Do you presently have visiting nurse or other home services: No Alcohol intake: never Patient Tobacco Use Status: Current everyday Tobacco user Tobacco use type: Cigarette Cigarettes Per Day: 2 Second Hand Smoke Exposure: No Substance Use Type: Marijuana Advance Directives: No Advance Directives Information Provided: Yes Do you have a plan to hurt others: No Plan service: No Current occupational status: unemployed Physical Exam Vital Signs: Vital Signs: Last Vital Signs Pulse 68 02/29/24 14:39 Resp 20 02/29/24 14:39 BP 132/98 H 02/29/24 14:39 Pulse Ox 97 02/29/24 14:39 O2 Del Method Room Air 02/29/24 14:39 BMI result Body Mass Index 41.3 Appearance: Alert.?Oriented to person, place and time. No acute distress.?Normal affect. Eyes: Pupils equal, round and reactive to light.? ENT: Pharynx normal.?? Neck: Normal inspection.? Neck supple.?? CVS: Heart sounds normal. Normal heart rate and rhythm.? Pulses normal.?? Respiratory: No respiratory distress.? Lung sounds clear to auscultation bilaterally?? Abdomen: Soft and non-tender. Normoactive bowel sounds. Skin: Skin warm and dry.? Normal skin color.? ?? Extremities: No lower extremity edema.? Neuro: Moves all extremities spontaneously. Sensation intact bilaterally. CN II-XII intact. No focal neuro deficits. Ambulates with normal steady gait. Medical Decision Making Medical Decision Making MDM Narrative: Patient is a 48-year-old female with past medical history of hepatitis-C, HIV, substance use disorder, asthma who presents to the emergency department for evaluation after accidental overdose as per HPI. She endorses feeling nauseous but no vomiting, had no nausea or gastrointestinal symptoms prior to receiving Narcan. This is most likely a side effect of such rather than a symptom of acute intra-abdominal process. She received Zofran IV. Encourage fluids. Discussed monitoring in the emergency department to assure she has no further respiratory depression. She was offered assistance with detox services, IVETH eval she declines it at this time. Differential Diagnosis Differential Diagnoses: The differential diagnosis associated with the presentation includes (See narrative above and below) Admission/Observation Consideration of admission/observation: Escalation of care including admission/observation considered See narrative above. Patient placed in physician observation at 15:54 on 02/29/2024. Independent Historian Clinical information obtained from an independent historian. History obtained from or confirmed by: EMS External Record Review External record reviewed: Outpatient record Prescription Management I considered prescription management with: Other (Naltrexone) Social Determinants Patient?s care significantly limited by Social Determinants of Health including: Alcoholism and drug addiction in family Discharge Plan Discharge Clinical Impression: Accidental overdose Patient Disposition: Home, Self-Care Instructions: Adult Overdose (ED) Additional Instructions: As discussed, refrain from using recreational drugs including heroin. You required multiple doses of Narcan administration to reverse your overdose state. You have been provided with take-home Narcan, please consider keeping the sign your person and/or giving it to family/friends that you are close with an often with in the event that you have another overdose. You were offered assistance with detox/substance use evaluation but have declined. You may return back to emergency department any new or worsening symptoms or concerns. Prescriptions: No Action Tivicay 50 mg tablet 1 tab PO DAILY Descovy 200-25 mg tablet 1 tab PO DAILY methadone 10 mg/mL Concentrate 115 mg PO DAILY Rx Instructions: [facility] [place]- [phone] albuterol sulfate [ProAir HFA] 90 mcg/actuation HFA aerosol inhaler 2 puff PO Q4H PRN (Reason: Shortness Of Breath) Qty: 6.7 2RF atovaquone 750 mg/5 mL suspension 1,500 mg PO DAILY 90 Days Qty: 900 0RF Rx Instructions: must administer with food, preferably a high-fat meal prednisone 20 mg Tablet 40 mg PO DAILY Qty: 10 0RF Referrals: Physician,Unknown J [Primary Care Provider] - Print Language: Kazakh
[2024-02-29] MEDS: Ondansetron ODT 4 MG TAB.RAPDIS TRANSLINGU (15:59)
[2024-02-29 17:56] VITALS: BP 137/87; PULSE 64; RESP 16; O2SAT 96
[2024-02-29 18:27] VITALS: BP 137/87; PULSE 64; RESP 16; TEMP 36.6; O2SAT 96
== END 2024-02-29 18:28 | disposition home or self-care (01) ==
PROVIDERS: Emergency Provider Emergency Medicine
DX: T50.901A Poisoning by unspecified drugs, medicaments and biological substances, accidental (unintentional), initial encounter (principal); F19.90 Other psychoactive substance use, unspecified, uncomplicated; Y92.9 Unspecified place or not applicable; R11.0 Nausea; B20 Human immunodeficiency virus [HIV] disease; B19.20 Unspecified viral hepatitis C without hepatic coma
CPT/HCPCS: 99284

== ENCOUNTER 2024-10-11 14:14 | Outpatient (REF) | payer MEDICAID, SELFPAY ==
[2024-10-11 16:28] LABS: Basophils Percent Auto 0.9 % (0-2); Eosinophils Absolute Auto 0.2 X10*3/uL (0.0-0.4); Eosinophils Percent Auto 10.1 % (0-4); Hematocrit 38.1 % (37.0-47.0); Hemoglobin 13.2 g/dl (12.0-16.0); Lymphocytes Absolute Auto 0.6 X10*3/uL (1.2-4.9); Lymphocytes Percent Auto 27.3 % (20-40); MANUAL DIFF FLAG SCAN; Mean Corpuscular HGB Conc 34.6 g/dl (31.0-35.0); Mean Corpuscular Volume 86.6 fL (80.0-98.0); Mean Platelet Volume 11.9 fL (9.4-12.3); Monocytes Absolute Auto 0.2 X10*3/uL (0.1-1.2); Monocytes Percent Auto 8.8 % (2-11); Neutrophils Absolute Auto 1.2 x10*3/uL (2.0-8.3); Neutrophils Percent Auto 52.9 % (45-73); Platelet Count 106 X10*3/uL (160-400); Red Cell Distribution Width 14.1 % (11.0-16.0); SCAN SMEAR FLAG 1
[2024-10-11 16:32] LABS: White Blood Count 2.3 X10*3/uL (4.8-10.8)
[2024-10-11 17:25] LABS: SLIDE REVIEW VERIFIED
[2024-10-11 17:51] LABS: Alanine Aminotransferase 23 U/L (0-31); Albumin Level 3.5 g/dL (3.5-5.0); Alkaline Phosphatase 56 U/L (39-117); Anion Gap 11 (12-20); Aspartate Amino Transferase 38 U/L (5-31); Bilirubin Total 0.5 mg/dL (0.0-1.0); Blood Urea Nitrogen 11 mg/dL (9-16); Carbon Dioxide 26 mmol/L (22-29); Chloride 106 mmol/L (96-108); Cholesterol 149 mg/dL (<200); Estimated Glomerular Filt Rate > 60; Glucose Random 75 mg/dL (60-115); HDL Cholesterol 39 mg/dL (>40); LDL Cholesterol Calculated 79 mg/dL (<100); Potassium 4.4 mmol/L (3.3-5.1); Sodium 139 mmol/L (135-145); Total Protein 7.6 g/dL (6.5-8.0); Triglycerides 159 mg/dL (<150)
[2024-10-11 18:02] LABS: Reflex LDLD? No
[2024-10-12 08:06] LABS: HBS Num1 57.66 mIU/mL (0-7.99); HBc Num1 2.98 S/CO (0.00-0.79); HBsAGNum1 0.29 S/CO (0.00-0.99); Hepatitis B Surface Antigen Negative (Negative); ~HepC Num1 11.96 S/CO (0.00-0.79); ~Hepatitis B Surface Antibody REACTIVE (Nonreactive); ~Hepatitis C Antibody Reactive (Nonreactive)
[2024-10-12 09:32] LABS: HBc Num2 2.56 S/CO; HBc Num3 2.66 S/CO; Hepatitis B Core Antibody Reactive (Nonreactive)
[2024-10-12 11:33] LABS: RPR Rapid Plasma Reagin NON-REACTIVE (NON-REACTIVE)
[2024-10-12 21:34] LABS: HIV RNA PCR Qn Copies 590000 copies/mL (NOT DETECTED); HIV RNA PCR Qn Log Copies 5.77 (NOT DETECTED)
[2024-10-13 09:04] LABS: Hepatitis A Antibody IgG REACTIVE (Nonreactive); ~Hepatitis A Antibody IgG 1.89 S/CO (0.00-0.99)
[2024-10-13 17:58] LABS: Absolute CD3 Count 404 cells/uL (840-3060); Absolute CD4 Count 98 cells/uL (490-1740); Absolute CD8 Count 303 cells/uL (180-1170); Absolute Lymphocytes 556 cells/uL (850-3900); CD4 CD8 Ratio 0.32 (0.86-5.00); Percent CD3 Cells 73 % (57-85); Percent CD4 Cells 18 % (30-61); Percent CD8 Cells 54 % (12-42)
[2024-10-14 16:39] LABS: TS Negative Control Passed; TS Panel A 1; TS Panel B 0; TS Positive Control Passed; TSpotTB Negative (Negative)
[2024-10-14 19:59] LABS: HCV Log PCR 5.59 Log IU/mL (NOT DETECTED); HepC Viral Load 387000 IU/mL (NOT DETECTED)
== END 2024-10-11 14:15 | disposition home or self-care (01) ==
LOC: HO.HHCL 14:14
PROVIDERS: Visit Provider Internal Medicine
DX: B20 Human immunodeficiency virus [HIV] disease (principal)
CPT/HCPCS: 36415; 80053; 80061; 85025; 86359; 86360; 86481; 86592; 86704; 86706; 86708; 86803; 87340; 87522; 87536

== ENCOUNTER 2024-10-30 04:19 | Emergency (ER) | payer MEDICAID, SELFPAY ==
--- NOTE | ~2024-10-30 | XR_ITS ---
CLINICAL HISTORY: shortness of breath 1 view chest x-ray Comparison: CR/SR - XR CHEST 1V - 09/22/23 08:08 EDT Findings: The lungs are clear. Normal size heart. No acute fracture. IMPRESSION: 1. No acute findings. This document has been electronically signed by: Clemente Jacome MD on 10/30/2024 05:48:47
--- NOTE | ~2024-10-30 | XR_ITS ---
CLINICAL HISTORY: toe pain s p injury, injects on foot, red, hot 2 view right foot Comparison: None Findings: Bones intact. No dislocations. Dorsal midfoot soft tissue swelling. No radiopaque foreign body. IMPRESSION: 1. No acute findings. This document has been electronically signed by: Kate Buchanan MD on 10/30/2024 10:28:40
[2024-10-30 04:29] VITALS: BP 103/79; PULSE 88; RESP 16; TEMP 37.4; O2SAT 94
[2024-10-30 04:39] VITALS: BP 136/60; PULSE 95; BMI 22.9
--- NOTE | 2024-10-30 04:55 | PC.NURSE ---
stopped taking HIV meds 2 years ago
--- NOTE | 2024-10-30 05:04 | PC.NURSE ---
pt initially hysterical crying about past events and stating she used to be suicidal years ago. explicitly states at this time she does not want to harm or kill herself. she vehemently states that she is not suicidal and wants to speak to a social work msw to get her home life in order
[2024-10-30] MEDS: LORazepam 1 MG TABLET PO (05:17)
[2024-10-30] MEDS: Acetaminophen 325 MG TABLET 975 MG PO (05:17)
[2024-10-30 05:33] LABS: MANUAL DIFF FLAG NO
[2024-10-30 05:39] LABS: Basophils Percent Auto 0.6 % (0-2); Eosinophils Absolute Auto 0.2 X10*3/uL (0.0-0.4); Eosinophils Percent Auto 2.3 % (0-4); Hematocrit 36.7 % (37.0-47.0); Hemoglobin 13.3 g/dl (12.0-16.0); Imm Gran Abs Auto 0.02 X10*3/uL (0.00-0.03); Imm Gran Pct Auto 0.3 % (0.0-0.4); Lymphocytes Absolute Auto 0.9 X10*3/uL (1.2-4.9); Lymphocytes Percent Auto 13.1 % (20-40); Mean Corpuscular HGB Conc 36.2 g/dl (31.0-35.0); Mean Corpuscular Hemoglobin 30.3 pg (27.0-33.0); Mean Corpuscular Volume 83.6 fL (80.0-98.0); Mean Platelet Volume 11.4 fL (9.4-12.3); Monocytes Absolute Auto 0.7 X10*3/uL (0.1-1.2); Monocytes Percent Auto 10.5 % (2-11); Neutrophils Absolute Auto 4.8 x10*3/uL (2.0-8.3); Neutrophils Percent Auto 73.2 % (45-73); Platelet Count 115 X10*3/uL (160-400); Red Blood Count 4.39 X10*6/uL (4.20-5.50); Red Cell Distribution Width 13.2 % (11.0-16.0); White Blood Count 6.6 X10*3/uL (4.8-10.8)
[2024-10-30 05:52] LABS: Alanine Aminotransferase 30 U/L (0-31); Albumin Level 4.2 g/dL (3.5-5.0); Alkaline Phosphatase 54 U/L (39-117); Anion Gap 19 (12-20); Aspartate Amino Transferase 53 U/L (5-31); Bilirubin Total 0.9 mg/dL (0.0-1.0); Blood Urea Nitrogen 28 mg/dL (9-16); Calcium 9.3 mg/dL (8.4-10.2); Carbon Dioxide 19 mmol/L (22-29); Chloride 102 mmol/L (96-108); Creatinine Clr Calc Pharmacy 45.1; Estimated Glomerular Filt Rate 35; Glucose Random 72 mg/dL (60-115); Potassium 3.8 mmol/L (3.3-5.1); Sodium 136 mmol/L (135-145)
[2024-10-30 06:08] VITALS: PULSE 85; RESP 16; TEMP 36.4; O2SAT 95
--- NOTE | 2024-10-30 08:52 | ED_ITS ---
HPI - General Adult General Chief complaint: Skin/Abscess/Foreign Body Stated complaint: back pain and SOB Time Seen by Provider: 10/30/24 07:59 Source: patient and EMS Mode of arrival: EMS Limitations: no limitations History of Present Illness ED Provider: Brenda Lopez PA-C HPI narrative: 49 yo female with history of HIV on HAART, hepatitis C, asthma, smoker, polysubstance abuse on methadone with going IVDA who presents to the ER for evaluation of all over body pain. she is a poor historian. she arrives to the ER anxious and restless. she reports taking her methadone 120 mg this morning. she last injected drugs into the right foot 2 days ago. it is red, warm and very painful. it hurts to walk on. she denies fevers or chills. she reports diffuse body pain, back pain, neck pain, headache. she has not been eating or drinking well at home. denies vomiting or diarrhea. no abdominal pain or chest pain. MD complaint: body pain, red foot Onset (ago): unknown Pain Consistency: constant Relieving factors: none Exacerbating factors: none Associated symptoms: headaches and rash Treatments prior to arrival: other (methadone 120 mg) Related Data Home Medications ?Medication ?Instructions ?Recorded ?Confirmed dolutegravir 50 mg tablet (Tivicay) 1 tab PO DAILY 10/30/21 09/22/23 emtricitabine 200 mg-tenofovir 1 tab PO DAILY 10/30/21 09/22/23 alafenamide fumarate 25 mg tablet (Descovy) methadone 10 mg/mL oral concentrate 115 mg PO DAILY 10/30/21 11/12/22 Previous Rx's ?Medication ?Instructions ?Recorded albuterol sulfate 90 mcg/actuation 2 puff PO Q4H PRN Shortness Of 11/15/22 aerosol inhaler (ProAir HFA) Breath #6.7 grams atovaquone 750 mg/5 mL oral 1,500 mg (10 mL) PO DAILY 3 months 09/25/23 suspension #900 mL prednisone 20 mg tablet 40 mg (2 x 20 mg) PO DAILY #10 tabs 09/25/23 cephalexin 500 mg capsule 500 mg PO Q6H 7 days #28 caps 10/30/24 doxycycline hyclate 100 mg tablet 100 mg PO BID #14 tabs 10/30/24 Allergies Allergy/AdvReac Type Severity Reaction Status Date / Time No Known Allergies Allergy Verified 10/30/24 04:43 Review of Systems 2 Review of Systems: Yes all other systems are reviewed and are negative [facility] Past Medical History Medical History Substance use disorder HIV (human immunodeficiency virus infection) Hepatitis C Substance abuse Asthma Genital herpes Hep C w/o coma, chronic HIV (human immunodeficiency virus infection) Social History Social History Household Members: Children Housing: Apartment Do you presently have visiting nurse or other home services: No Alcohol intake: never Patient Tobacco Use Status: Current everyday Tobacco user Tobacco use type: Cigarette Cigarettes Per Day: 2 Second Hand Smoke Exposure: No Substance Use Type: Crack/Cocaine, Heroin and IV Drugs Advance Directives: No Advance Directives Information Provided: Yes Do you have a plan to hurt others: No Plan service: No Current occupational status: unemployed Physical Exam ED Vital Signs: Vital Signs - 24 hr 10/30/24 04:29 10/30/24 06:08 10/30/24 10:55 Temperature 99.4 F 97.6 F 98.0 F Pulse Rate 88 85 74 Respiratory Rate 16 16 22 H Blood Pressure 103/79 106/87 Pulse Oximetry 94 95 92 Oxygen Delivery Method Room Air Room Air Room Air BMI result Body Mass Index 22.9 Appearance: lethargic, older than stated age, restless in the stretcher with eyes closed. Oriented X3. Head: normocephalic, atraumatic. Eyes: Pupils equal, round and reactive to light. ENT: Pharynx normal. No tonsillar swelling or exudate. dentition absent Neck: Normal inspection. Neck supple. FROM of the cervical spine, no nuchal rigidity CVS: Normal heart rate and rhythm. Pulses normal. Respiratory: No respiratory distress. Breath sounds normal. Abdomen: Soft and nontender. +BS x4 Skin: Skin warm and dry. Normal skin color. Normal skin turgor. No rashes. Back: no midline tendnerness throughout. no CVA tenderness Extremities: No lower extremity edema. anterior portion of the right foot with approx 6cm area of warmth and tenderness, erythema, no induration or fluctuance. pain with dorsiflexion of the right foot. track lambert and scattered ecchymosis on the bilateral upper extremities. Neuro/psych: Oriented X 3. no focal weakness. CN II-XII intact. limping gait due to pain in the right foot. Medications Administered Discontinued Medications Generic Name Dose Route Start Last Admin Trade Name Juan Francisco PRN Reason Stop Dose Admin Acetaminophen 975 mg 10/30/24 05:10 10/30/24 05:17 Acetaminophen 325 Mg Tablet PO 10/30/24 05:11 975 mg ONCE ONE Administration Cephalexin HCl 500 mg 10/30/24 08:17 10/30/24 08:53 Cephalexin 500 Mg Capsule PO 10/30/24 08:18 500 mg ONCE ONE Administration Doxycycline Monohydrate 100 mg 10/30/24 08:17 10/30/24 08:53 Doxycycline Monohydrate 100 Mg Capsule PO 10/30/24 08:18 100 mg ONCE ONE Administration Lactated Ringer's 1,000 mls @ 999 mls/hr 10/30/24 08:15 10/30/24 09:41 Lr IV 10/30/24 09:15 Infused .Q1H1M NAT Infusion Lorazepam 1 mg 10/30/24 05:08 10/30/24 05:17 Lorazepam 1 Mg Tablet PO 10/30/24 05:09 1 mg ONCE ONE Administration Medical Decision Making Medical Decision Making [facility] Narrative: 49 yo female with active IVDA, HIV on HAART presenting with diffuse body aches and right foot pain, redness and swelling x1 day after injecting drugs into the area. no evidence of abscess on exam. labs reassuring with no leukocytosis, very low CRP. no focal neurologic deficits on exam. she has a mild LAURIE and was given 1L IVF and oral fluids. xray of the foot is normal PO abx given for cellulitis of the foot. no fever, tachycardia to suggest sepsis. patient counseled on infection and need for abx. return precautions discussed. comfortable with discharge with po abx, oral hydration and outpatient follow p. Differential Diagnosis Differential Diagnoses: The differential diagnosis associated with the presentation includes cellulitis, abscess, LAURIE likely pre-renal, low suspicion for obstructive uropathy, low suspicion for diskitis, spinal osteomyelitis or epidural abscess Admission/Observation Consideration of admission/observation: Escalation of care including admission/observation considered Lab Data [facility] Lab Attestation statement: I reviewed the patient's lab results. no leukocytosis, mild thrombocytopenia, LAURIE 10/30/24 05:28 10/30/24 05:28 Labs: Lab Results 10/30/24 10/30/24 Range/Units 05:28 08:47 WBC 6.6 (4.8-10.8) X10*3/uL RBC 4.39 (4.20-5.50) X10*6/uL Hgb 13.3 (12.0-16.0) g/dl Hct 36.7 L (37.0-47.0) % MCV 83.6 (80.0-98.0) fL MCH 30.3 (27.0-33.0) pg MCHC 36.2 H (31.0-35.0) g/dl RDW 13.2 (11.0-16.0) % Plt Count 115 L (160-400) X10*3/uL MPV 11.4 (9.4-12.3) fL Immature Gran % (Auto) 0.3 (0.0-0.4) % Neut % (Auto) 73.2 H (45-73) % Lymph % (Auto) 13.1 L (20-40) % Randolph % (Auto) 10.5 (2-11) % Eos % (Auto) 2.3 (0-4) % Baso % (Auto) 0.6 (0-2) % Lymph # (Auto) 0.9 L (1.2-4.9) X10*3/uL Randolph # (Auto) 0.7 (0.1-1.2) X10*3/uL Eos # (Auto) 0.2 (0.0-0.4) X10*3/uL Baso # (Auto) 0.0 (0.0-0.2) X10*3/uL Abs Immat Gran (auto) 0.02 (0.00-0.03) X10*3/uL Absolute Neuts (auto) 4.8 (2.0-8.3) x10*3/uL Absolute Nucleated RBC 0.000 (0.0-0.012) X10*3/uL Nucleated RBC % (auto) 0.0 (0.0-0.2) /100WBC ESR 50 H (0-20) MM/HR Sodium 136 (135-145) mmol/L Potassium 3.8 (3.3-5.1) mmol/L Chloride 102 (96-108) mmol/L Carbon Dioxide 19 L (22-29) mmol/L Anion Gap 19 (12-20) BUN 28 H (9-16) mg/dL Creatinine 1.56 H (0.5-1.4) mg/dL Estim Creat Clear Calc 45.1 Estimated GFR 35 Random Glucose 72 (60-115) mg/dL Lactic Acid 0.7 (0.5-2.0) mmol/L Calcium 9.3 (8.4-10.2) mg/dL Total Bilirubin 0.9 (0.0-1.0) mg/dL AST 53 H (5-31) U/L ALT 30 (0-31) U/L Alkaline Phosphatase 54 (39-117) U/L C-Reactive Protein 0.89 H (< or = 0.50) mg/dL Total Protein 9.0 H (6.5-8.0) g/dL Albumin 4.2 (3.5-5.0) g/dL Independent Interpretation I performed an independent interpretation of an: Plain X-Ray Interpretation: XR foot without visualized foreign body or acute fx Radiology Impression Discussion of test interpretation with radiology: I have reviewed the radiologist's reading. Independent Historian Clinical information obtained from an independent historian. History obtained from or confirmed by: EMS External Record Review External record reviewed: Outpatient record, Prior outpatient labs and Prior outpatient radiology Prescription Management I considered prescription management with: Antibiotic Chronic Conditions Patient?s care impacted by: Other (HIV, substance use disorder) Social Determinants Patient?s care significantly limited by Social Determinants of Health including: Low income, Alcoholism and drug addiction in family, Problems related to primary support group and Other Social Determinant of Health Discharge Plan Discharge Clinical Impression: LAURIE (acute kidney injury) Cellulitis Qualifiers: Site of cellulitis: extremity Site of cellulitis of extremity: lower extremity Laterality: right Qualified Code(s): L03.115 - Cellulitis of right lower limb Patient Disposition: Home, Self-Care Instructions: Acute Kidney Injury (DC), Cellulitis (ED) Additional Instructions: your labs showed some mild kindey injury for which you were given IV fluids. it is important that you drink plenty of fluids and stay hydrated you have a skin infection on your right foot use warm compresses to your foot 3 times per day Take the prescribed antibiotics as directed, complete the entire course and do not miss any doses do not inject drugs into the area of infection - if can spread the infection to your bloodstream and be life threatening If you develop new or worsening symptoms call 911 or come back to the ER for further evaluation. Prescriptions: New cephalexin 500 mg capsule 500 mg PO Q6H 7 Days Qty: 28 0RF doxycycline hyclate 100 mg tablet 100 mg PO BID Qty: 14 0RF No Action Tivicay 50 mg tablet 1 tab PO DAILY Descovy 200-25 mg tablet 1 tab PO DAILY methadone 10 mg/mL Concentrate 115 mg PO DAILY Rx Instructions: [facility]- [phone] albuterol sulfate [ProAir HFA] 90 mcg/actuation HFA aerosol inhaler 2 puff PO Q4H PRN (Reason: Shortness Of Breath) Qty: 6.7 2RF atovaquone 750 mg/5 mL suspension 1,500 mg PO DAILY 90 Days Qty: 900 0RF Rx Instructions: must administer with food, preferably a high-fat meal prednisone 20 mg Tablet 40 mg PO DAILY Qty: 10 0RF Print Language: Mohawk
[2024-10-30] MEDS: Doxycycline Monohydrate 100 MG CAPSULE PO (08:53)
[2024-10-30] MEDS: cephALEXin 500 MG CAPSULE PO (08:53)
[2024-10-30] MEDS: Lactated Ringers 1,000 ML 999 ML IV (08:53)
[2024-10-30 09:07] LABS: C Reactive Protein 0.89 mg/dL (< or = 0.50)
[2024-10-30 09:15] LABS: Lactic Acid 0.7 mmol/L (0.5-2.0)
[2024-10-30 09:45] LABS: Erythrocyte Sedimentation Rate 50 MM/HR (0-20)
[2024-10-30 10:55] VITALS: BP 106/87; PULSE 74; RESP 22; TEMP 36.7; O2SAT 92
[2024-10-30 12:21] VITALS: BP 106/87; PULSE 74; RESP 22; TEMP 36.7; O2SAT 92
== END 2024-10-30 12:23 | disposition home or self-care (01) ==
PROVIDERS: Physician Assistant; Emergency Provider Emergency Medicine
DX: L03.115 Cellulitis of right lower limb (principal); R11.0 Nausea; R06.02 Shortness of breath; M79.10 Myalgia, unspecified site; M54.50 Low back pain, unspecified; M54.2 Cervicalgia; M79.671 Pain in right foot; Z79.899 Other long term (current) drug therapy
CPT/HCPCS: 36415; 71045; 73620; 80053; 83605; 85025; 85652; 86140; 87040; 96360; 99284; J7120

== ENCOUNTER → 2024-10-30 05:06 | Outpatient (BNV) | payer MEDICAID, SELFPAY | PROVIDERS: Visit Provider Radiology Diagnostic Radiology | DX: R06.02 Shortness of breath (principal); M79.674 Pain in right toe(s) | CPT/HCPCS: 71045; 73620 ==

== ENCOUNTER 2024-12-29 11:31 | Outpatient (REF) | payer MEDICAID, SELFPAY ==
[2024-12-29 13:31] LABS: INTERNATIONAL NORM RATIO 1.1 (0.9-1.1); Prothrombin Time 12.5 SEC (10.9-12.4)
[2024-12-30 15:49] LABS: HIV RNA PCR Qn Copies 360 copies/mL (NOT DETECTED); HIV RNA PCR Qn Log Copies 2.56 (NOT DETECTED)
[2025-01-03 21:38] LABS: Absolute CD3 Count 725 cells/uL (840-3060); Absolute CD8 Count 453 cells/uL (180-1170); Percent CD3 Cells 79 % (57-85); Percent CD8 Cells 49 % (12-42)
[2025-01-09 13:47] LABS: FIB-ALT 17 U/L (6-29); FIB-Alpha-2-Macroglobulin 318 mg/dL (106-279); FIB-Apolipoprotein A1 87 mg/dL (101-198); FIB-GGT 17 U/L (3-70); FIB-Haptoglobin 56 mg/dL (43-212); FIB-Total Bilirubin 0.7 mg/dL (0.2-1.2); Liver Fibrosis Score 0.64; Liver Fibrosis Stage F3; Nec Inflam Act Grade A0; Nec Inflam Act Score 0.10
== END 2024-12-29 11:32 | disposition home or self-care (01) ==
LOC: HO.HHCL 11:31
PROVIDERS: Visit Provider Internal Medicine
DX: Z21 Asymptomatic human immunodeficiency virus [HIV] infection status (principal)
CPT/HCPCS: 36415; 81596; 85610; 86359; 86360; 87536; 87902